=== PATIENT | female | born 1970 | race Caucasian/White ===

== ENCOUNTER 2022-06-10 09:41 | Outpatient (CLI) | payer BC, SELFPAY ==
[2022-06-10 13:13] LABS: Basophils Absolute Auto 0.03 K/uL (0.00-0.30); Basophils Percent Auto 0.6 % (0.0-3.0); Eosinophils Absolute Auto 0.13 K/uL (0.00-0.50); Eosinophils Percent Auto 2.5 % (0.0-7.0); Hematocrit 45.1 % (33.0-51.0); Hemoglobin* 14.8 gm/dL (12.0-16.0); Immature Granulocytes Abs Auto 0.03 K/uL (0.00-0.30); Lymphocytes Absolute Auto 1.54 K/uL (0.90-2.90); Mean Corpuscular HGB Conc 33 gm/dL (32-36); Mean Corpuscular Hemoglobin 30 pg (26-34); Mean Corpuscular Volume 92 fL (80-100); Monocytes Percent Auto 9.6 % (0.0-11.0); Neutrophils Absolute Auto 2.91 K/uL (1.7-7.0); Neutrophils Percent Auto 56.7 % (42.0-72.0); Platelet Count* 235 K/uL (140-440); RDW Coefficient of Variation % 12.7 % (11.5-15.5); White Blood Count* 5.13 K/uL (4.50-11.00)
[2022-06-10 13:41] LABS: Albumin* 4.4 g/dL (3.3-5.0); Chloride* 107 mmol/L (96-114); Potassium* 5.2 mmol/L (3.6-5.1); Sodium* 139 mmol/L (135-149)
[2022-06-10 13:44] LABS: Alanine Aminotransferase* 96 U/L (4-35); Alkaline Phosphatase* 71 U/L (40-150); Aspartate Amino Transferase* 55 U/L (12-35); Bilirubin Total* 0.6 mg/dL (0.1-1.5); Blood Urea Nitrogen* 18 mg/dL (7-30); Calcium* 9.1 mg/dL (8.4-10.6); Carbon Dioxide* 25 mmol/L (20-32); Creatinine* 0.8 mg/dL (0.5-1.5); Estimated Glomerular Filt Rate 90 ml/min; Glucose* 108 mg/dL (60-115); Lipase* 92 U/L (23-300); Total Protein* 7.3 g/dL (6.0-8.3)
[2022-06-10 14:17] LABS: Slide Review Reflex No
--- OUTSIDE RECORDS SUMMARY | 2022-06-16 03:23 | XMS_ITS | Encounter Summary ---
:1970 Author Organization [employer] Address [address] [address] Care Team Providers Name Role Phone Pcp, Pt Declines Primary Care Provider Reason for Visit Reason Comments Post Op Exam left ankle Encounter Details Date Type Department Care Team Description 11/09/2021 Office Visit BEULAH Camargo Osteoarthrit is of left ankle and foot (Primary Dx); Orthopaedics & Sports Devon Lucero MD Aftercare following surgery of the [facility]; Medicine [address] [place] [address] Arthritis of left ankle [address] [place] [phone] Social History Tobacco Use Types Packs/Day Years Used Date Smoking Tobacco: Never Smokeless Tobacco: Never Sex Assigned at Date Recorded Not on file documented as of this encounter Progress Notes Devon Camargo MD - 11/09/2021 11:45 AM CST FOLLOW-UP DATE OF SERVICE: 11/09/21 CC: Chief Complaint Patient presents with ??? Post Op Exam left ankle DOS: 09/24/2021 Surgery: Left distal tibia cheilectomy SUBJECTIVE: Saba Berrios is a 50 y.o. female who presents to clinic today for follow-up on her left ankle. She is now 6 weeks out from surgery. She did weight-bearing as tolerated in a Cam boot up until 2 weeks ago. She developed an abrasion from the boot rubbing on her anterior ankle. This has resolved with removal of the boot. She notes minimal discomfort with ankle range of motion. She is happy with the progress she is making this time. PHYSICAL EXAM: On physical examination the patient appears the stated age, is in no acute distress There is appropriate and non-labored breathing There were no vitals taken for this visit. - Incision healing well. - minimal swelling. No erythema. Abrasions healing well. - Motor: Fires EHL / FHL. Ankle dorsiflexion / planar flexion. Inversion / eversion - Sensation: intact in tibial, sural, saphenous, deep peroneal and superficial peroneal - Vascular: palpable dorsalis peds and posterior tibial artery IMAGING: No new imaging today IMPRESSION: Saba Berrios is a 50 y.o. female with the followin. left distal tibia cheilectomy for anterior ankle impingement, 6 weeks out from surgery PLAN: - We discussed the physical and imaging findings with the patient and how this relates the patient'ssymptomology. She is progressing well. She can get the boot at this time. - Weightbearing: Weight-bearing as tolerated - Physical Therapy: Continue work on ankle range of motion. - Follow-up: 6 weeks Devon Camargo MD Orthopedic Foot and Ankle Surgery ICAL DETECTION EXPERT documented in this encounter Plan of Treatment Not on filedocumented as of this encounter Visit Diagnoses Diagnosis Osteoarthritis of left ankle and foot - Primary [facility] Arthritis of left ankle Unspecified arthropathy, ankle and foot documented in this encounter Care Teams Spa Technician Relationship Specialty Start Date End Date Pcp, Sarkis Ash MD PCP - General 05/05/21 [place] [address] documented as of this encounter
--- OUTSIDE RECORDS SUMMARY | 2022-06-16 03:23 | XMS_ITS | Encounter Summary ---
:1970 Author Organization [facility] Address [address], [place] [address] Care Team Providers Name Role Phone PcpSarkis MD Primary Care Provider Encounter Details Date Type Department Care Team Description 11/07/2021 Notes/Orders [facility] Devon Camargo MD [place] [address] [place] [address] [address] [place] [address] [place], [place] [address] [phone] Social History Tobacco Use Types Packs/Day Years Used Date Smoking Tobacco: Never Smokeless Tobacco: Never Sex Assigned at Date Recorded Not on file documented as of this encounter Plan of Treatment Not on filedocumented as of this encounter Visit Diagnoses Not on filedocumented in this encounter Care Teams Manager Sign Relationship Specialty Start Date End Date Sarkis Romero MD PCP - General 05/05/21 [place], [place] [address] documented as of this encounter
--- OUTSIDE RECORDS SUMMARY | 2022-06-16 03:23 | XMS_ITS | Clinical Summary ---
:1970 Author Organization [facility] Address [address] [address] Care Team Providers Name Role Phone Pcp, Pt Declines MD Primary Care Provider Source Comments You are receiving this document as you are listed as the primary care provider,follow-up provider, or the patient has been referred to you for consultation.This is in compliance with the Medicare and Medicaid EHR Incentive Program,which states Providers who transition their patient to another setting of careor provider of care or refers their patient to another provider of care shouldprovide summarycare record for each transition of care or referral. [employer] Allergies Active Allergy Reactions Severity Noted Date Comments Chlorhexidine Rash 10/05/2021 From ankle padma oscar on 09/24 Wound Dressing Adhesive Rash 05/05/2021 Surg ical tape Medications Medication Sig Dispensed Refills Start Date End Date Status SUMAtriptan TAKE 1 TABLET BY 0 04/24/2021 Active (IMITREX) 100 MG MOUTH AFTER ONSET tablet OF MIGRAINE, MAY REPEAT AFTER 2 HOURS IF HEADACHE RETURNS. (MAX 2 TABLETS IN 24 HRS) TAKE NEEDED fluticasone Place 2 Sprays into 0 Active propionate (FLONASE) both nostrils 50 MCG/ACT nasal daily. solution cetirizine (ZYRTEC) Take 10 mg by mouth 0 Active 10 MG tablet daily. oxyCODONE-acetaminop Take 1-2 Tablets by 30 Tablet 0 Active hen (PERCOCET) 5-325 mouth every 4 hours MG tablet as needed for Pain. Maximum acetaminophen dose is 4000 mg in 24 hours. ondansetron Take 1 Tablet by 30 Tablet 0 09/24/2021 Active (ZOFRAN-ODT) 4 MG mouth every 8 hours disintegrating as needed for tablet Nausea. senna (SENNA Take 1 Tablet by 100 Tablet 0 09/24/2021 Active LAXATIVE) 8.6 MG mouth daily. tablet traMADol (ULTRAM) 50 Take 1 Tablet by 30 Tablet 0 11/09/2021 Active MG mouth every 6 hours tabletIndications: as needed. Arthritis of left ankle Resolved Problems Problem Noted Date Resolved Date Osteoarthritis of left ankle and foot 09/15/2021 Overview: Added automatically from request for padma oscar [id number] Immunizations Name Administration Dates Next Due Pfizer (Comirnaty) COVID-19, 12+ Yrs Purple Top 07/02/2021, 06/10/2021 Social History Tobacco Use Types Packs/Day Years Used Date Smoking Tobacco: Never Smokeless Tobacco: Never Sex Assigned at Date Recorded Not on file Last Filed Vital Signs Vital Sign Reading Time Taken Comments Blood Pressure 108/70 09/24/2021 2:30 PM HOIST MECHANIC Pulse 71 09/24/2021 2:30 PM HOIST MECHANIC Temperature 36.6 ??C (97.9 ??F) 09/24/2021 2:02 PM HOIST MECHANIC Respiratory Rate 16 09/24/2021 2:30 PM HOIST MECHANIC Oxygen Saturation 98% 09/24/2021 2:30 PM HOIST MECHANIC Inhaled Oxygen Concentration - - Weight 103 kg (227 lb) 09/24/2021 7:45 AM HOIST MECHANIC Height 170.2 cm (5' 7) 09/24/2021 7:45 AM HOIST MECHANIC Body Mass Index 35.55 09/24/2021 7:45 AM HOIST MECHANIC Plan of Treatment Health Maintenance Due Date Last Done Comments Cervical Cancer Screening Due 1970 Colon Cancer Screening Plan 1970 Due Hep C Screening (Preventive 1970 Services) HepB (1) 1970 Mammogram 1970 HIV Screening (Preventive 1987 Services) Adult Preventive Visit 1989 Cholesterol 2016 COVID-19 Vaccine (3 - Booster 12/02/2021 07/02/2021, for Pfizer series) 06/10/2021 Zoster/Shingles (1 of 2) 2021 Influenza (#1) 2022 11/28/2020, 08/23/2008, 08/28/2004 DTaP/Tdap/Td (4 - Tdap) 11/28/2030 11/28/2020, 02/07/2010, 03/09/2006 HepA Aged Out 07/31/2013, No longer eligib le based 02/27/2013, on patient's age to 01/23/2013 complete this to pic Hib Aged Out No longer eligib le based on patient's age to complete this to pic IPV (Polio) Aged Out No longer eligib le based on patient's age to complete this to pic MCV4 Aged Out No longer eligib le based on patient's age to complete this to pic Pneumococcal Aged Out No longer eligib le based on patient's age to complete this to pic Insurance Payer Benefit Plan / Subscriber ID Effective Dates Phone Addre ss Type Group [facility] [id number] 2021-Present [address] [address] [place] [id number] Saba Berrios Personal/Family Self [phone] (Home) [place] [id number] Advance Directives Latest Code Status on File Code Status Date Activated Date Inactivated Comments Full Code 09/24/2021 1:43 PM 09/24/2021 4:49 PM Care Teams English And Reading Instructor Relationship Specialty Start Date End Date Sarkis Romero MD PCP - General 05/05/21 [place] [address]
--- OUTSIDE RECORDS SUMMARY | 2022-06-16 03:23 | XMS_ITS | Encounter Summary ---
:1970 Author Organization [employer] Address [address] [address] Care Team Providers Name Role Phone PcpSarkis MD Primary Care Provider Reason for Visit Reason Comments Surgery Questions incision Encounter Details Date Type Department Care Team Description 10/22/2021 Telephone [facility] Devon Sargent y Questions Orthopaedics & Sports MD Jazmine (incision) Medicine [address] [facility] [address] [place], [place] [address] [phone] Social History Tobacco Use Types Packs/Day Years Used Date Smoking Tobacco: Never Smokeless Tobacco: Never Sex Assigned at Date Recorded Not on file documented as of this encounter Nursing Notes Devon Camargo MD - 10/22/2021 3:17 PM CST The patient called the nursing line about her incision. There is a scab that has not healed comparedto the other parts of the incision. Pictures in patients chart, from the patient. Patient states sheis doing well. No pain. Discussed that it does not look infected. She can come out of the boot now. Go into a shoe. Cover scab with gauze until it falls off over the next week or so. 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
--- OUTSIDE RECORDS SUMMARY | 2022-06-16 03:23 | XMS_ITS | Encounter Summary ---
:1970 Author Organization [facility] Address [address], [place] [address] Care Team Providers Name Role Phone PcpSarkis MD Primary Care Provider Encounter Details Date Type Department Care Team Description 03/03/2022 Notes/Orders [facility] Devon Camargo MD [place] [address] [place] [address] [address] [place] [address] [place], [place] [address] [phone] Social History Tobacco Use Types Packs/Day Years Used Date Smoking Tobacco: Never Smokeless Tobacco: Never Sex Assigned at Date Recorded Not on file documented as of this encounter Plan of Treatment Not on filedocumented as of this encounter Visit Diagnoses Not on filedocumented in this encounter Care Teams Crocodile Farmer Relationship Specialty Start Date End Date Sarkis Romero MD PCP - General 05/05/21 [place], [place] [address] documented as of this encounter
--- OUTSIDE RECORDS SUMMARY | 2022-06-16 03:23 | XMS_ITS | Encounter Summary ---
:1970 Author Organization [employer] Address [address] [address] Care Team Providers Name Role Phone Pcp, Pt Declines Primary Care Provider Reason for Referral (Routine) - New Request Specialty Diagnoses / Procedures Referred By Contact Refer red To Contact Diagnoses Aftercare following surgery of the musculoskeletal system Devon Camargo MD Procedures Triamcinolone Acet Inj Nos: (per 10 mg) [address] [facility] [place], [place] [address] Referral ID Status Reason Start Date Expiration Date Visits V isits Requested Authorized [id number] New Request 12/14/2021 03/15/2023 1 1 HOUSE STOCKER Reason for Visit Reason Comments Post Op Exam Left ankle Encounter Details Date Type Department Care Team Description 12/14/2021 Office Visit [facility] Orthopaedics & Sports Devon Lucero MD surgery of the Medicine [address] [facility] musculoskeletal system [address] [place], [place] (Primary Dx) [place] [phone] Social History Tobacco Use Types Packs/Day Years Used Date Smoking Tobacco: Never Smokeless Tobacco: Never Sex Assigned at Date Recorded Not on file documented as of this encounter Progress Notes Devon Camargo MD - 12/14/2021 3:00 PM CST FOLLOW-UP DATE OF SERVICE: 12/14/21 CC: Chief Complaint Patient presents with ??? Post Op Exam Left ankle DOS: 09/24/2021 Surgery: Left distal tibia cheilectomy SUBJECTIVE: Saba Berrios is a 51 y.o. female who presents to clinic today for follow-up on her left ankle. She is now 11 weeks out from her surgery. She reports that the anterior ankle pain has mostly resolved. She notes that she has new onset of lateral hindfoot pain, mostly centered over the sinus tarsi. And pain along the Achilles tendon. This pain mostly started after the surgery. It is not constant, but itis stabbing and can be debilitating. PHYSICAL EXAM: On physical examination the patient appears the stated age, is in no acute distress There is appropriate and non-labored breathing There were no vitals taken for this visit. - Incision healed well. - pain along the Achilles tendon. Nonpainful at the Achilles insertion. Significant pain to palpation sinus tarsi. - Motor: Fires EHL / FHL. Ankle dorsiflexion / planar flexion. Inversion / eversion - Sensation: intact in tibial, sural, saphenous, deep peroneal and superficial peroneal - Vascular: palpable dorsalis peds and posterior tibial artery IMAGING: No new imaging today Injection: The left lateral foot was cleaned with chlorhexidine. 1 cc of 40 mg of Kenalog and 2 cc of 1% lidocaine were injected into the sinus tarsi. Patient tolerated procedure well. There no immediate complications. IMPRESSION: Saba Berrios is a 51 y.o. female with the followin. left distal tibia cheilectomy for anterior ankle impingement, 11 weeks out from surgery PLAN: - We discussed the physical and imaging findings with the patient and how this relates the patient'ssymptomology. In regards to her anterior ankle pain, she is doing well. She still notes some stiffness, but is still working with physical therapy. 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 Today in clinic we did a lidocaine and Kenalog injection to see if this improves in her symptoms. The patient will cm mitral message in a few days if her symptoms have improved or not. I sent her physical therapist a message to work on Achilles tendinitis exercises. - Follow-up: The patient will contact me if there continues to be further problems. Devon Camargo MD Orthopedic Foot and Ankle Surgery HOUSE STOCKER documented in this encounter Plan of Treatment Not on filedocumented as of this encounter Visit Diagnoses Diagnosis Aftercare following [facility] - Primary Aftercare following surgery of the [facility], [facility] documented in this encounter Care Teams Toggler Relationship Specialty Start Date End Date Pcp, Sarkis Ash MD PCP - General 05/05/21 [place] [address] documented as of this encounter
--- OUTSIDE RECORDS SUMMARY | 2022-06-16 03:23 | XMS_ITS | Encounter Summary ---
:1970 Author Organization [facility] Address [address], [place] [address] Care Team Providers Name Role Phone Pcp, Pt Declines MD Primary Care Provider Reason for Visit Reason Comments Surgery, After Care How long to use crutches Incisional Questions Encounter Details Date Type Department Care Team Description 10/22/2021 Telephone [facility] Devon Sargent y, After Care Orthopaedics & Sports MD Jazmine (How long to use Medicine [address] [facility] [address] [place]); Incisional [address] [place], [place] Questions [place], [place] [address] [phone] Social History Tobacco Use Types Packs/Day Years Used Date Smoking Tobacco: Never Smokeless Tobacco: Never Sex Assigned at Date Recorded Not on file documented as of this encounter Nursing Notes Barb Parnell RN - 10/22/2021 3:17 PM CST Devon Camargo MD (3:16 PM) Just called the patient. Incision looks okay. Scab should fall off over next week or so. I told her she can come out of her CAM boot at this time. Gauze over the incision until fully healed. [facility] Barb Parnell RN - 10/22/2021 12:35 PM CST Action: Input needed Next Step: Route to ORTHO PN TRIAGE [[id number]] Specific Request(s): 1. Please advise if anything more needing to be done with scabbed/irritated area on the patient's incision. Pictures of area are available in the Media tab of the pt's chart. Spoke with the patient and she states there is an area on her incision that rubs on the CAM boot. She states it's not healed like the rest of the incision and there is some redness and a scab. Pt denies any drainage. She has been putting gauze and sometimes an abx ointment over the scab to help with padding it. She notes the scab gets soft during the day, but hardens when she is out of the boot at night. Pt advised to send in pictures of this area for Dr. Camargo to give further input. Also to continue to use a dressing to add extra padding to this area and keep the scab clean, covered and not use any ointment at this time. Also spoke with the patient that she is able to weight bear as tolerated so she can discontinue the use of her crutches as comfort allows. She may want to continue to use or have the crutches with whenshe will be walking longer distances, but she can go without the crutches in the house or for shorter distances as long as she tolerates it. Pt verbalized understanding to all advice given. [facility] Corinne Ribeiro - 10/22/2021 12:29 PM CST Has the patient recently had surgery or an injury? Yes. Date of Surgery: September 24, 2021 Type of Surgery: ANKLE, DISTAL TIBIA CHEILECTOMY (Left) How may we help you today? Pt is calling to ask how long she should continue to use her crutches. Please call the pt at [phone] to discuss Describe your symptoms/concerns: L ankle When did the issue start: Surgery Have you been seen for this recently?: 10/05/21 Dr Camargo [Him Manager/Appt Center: If yes, please include date and provider.] Is it okay to leave detailed message on your voicemail? Yes [Him Manager/Appt Center: If this call is after 3 p.m., communicate to patient: If we are not able to get back to you by the end of the day and your symptoms worsen please contact the Careline] [facility] documented in this encounter Plan of Treatment Not on filedocumented as of this encounter Visit Diagnoses Not on filedocumented in this encounter Care Teams Boom Pump Operator Relationship Specialty Start Date End Date Pcp, Sarkis Ash MD PCP - General 05/05/21 [place] [address] documented as of this encounter
--- OUTSIDE RECORDS SUMMARY | 2022-06-16 03:24 | XMS_ITS | Encounter Summary ---
:1970 Author Organization [facility] Address [address], [place] [address] Care Team Providers Name Role Phone Pcp, Pt Declines MD Primary Care Provider Reason for Referral (Routine) - Incomplete Specialty Diagnoses / Procedures Referred By Contact Refer red To Contact Procedures Chevy Coffman MD Anesthesia Guided Block [address] [place], [place] [address] Referral ID Status Reason Start Date Expiration Date Visits V isits Requested Authorized [id number] Incomplete 09/24/2021 12/24/2022 1 1 [employer]ONMENTAL CONSTRUCTION ENGINEER Procedure/Equipment (Routine) - Incomplete Specialty Diagnoses / Procedures Referred By Contact Refer red To Contact Procedures Devon Camargo MD MS C Arm Mini [address] [place], [place] [address] Referral ID Status Reason Start Date Expiration Date Visits V isits Requested Authorized [id number] Incomplete 09/21/2021 12/21/2022 1 1 [employer]ONMENTAL CONSTRUCTION ENGINEER Reason for Visit Auth/Cert Specialty Diagnoses / Procedures Referred By Contact Refer red To Contact Diagnoses Osteoarthritis of left ankle and foot Procedures ANKLE, DISTAL TIBIA CHEILECTOMY Referral ID Status Reason Start Date Expiration Date Visits Requ ested Visits Authorized [id number] 1 1 Encounter Details Date Type Department Care Team Description 09/24/2021 Hospital Encounter [facility] AMB SURGERY C TR Devon Camargo, [address] [facility] [place], [place] [address] [facility] [address] [place] [address] [phone] (Wo rk) Social History Tobacco Use Types Packs/Day Years Used Date Smoking Tobacco: Never Smokeless Tobacco: Never Sex Assigned at Date Recorded Not on file documented as of this encounter Last Filed Vital Signs Vital Sign Reading Time Taken Comments Blood Pressure 108/70 09/24/2021 2:30 PM ENVIRONMENTAL CONSTRUCTION ENGINEER Pulse 71 09/24/2021 2:30 PM ENVIRONMENTAL CONSTRUCTION ENGINEER Temperature 36.6 ??C (97.9 ??F) 09/24/2021 2:02 PM ENVIRONMENTAL CONSTRUCTION ENGINEER Respiratory Rate 16 09/24/2021 2:30 PM ENVIRONMENTAL CONSTRUCTION ENGINEER Oxygen Saturation 98% 09/24/2021 2:30 PM ENVIRONMENTAL CONSTRUCTION ENGINEER Inhaled Oxygen Concentration - - Weight 103 kg (227 lb) 09/24/2021 7:45 AM ENVIRONMENTAL CONSTRUCTION ENGINEER Height 170.2 cm (5' 7) 09/24/2021 7:45 AM ENVIRONMENTAL CONSTRUCTION ENGINEER Body Mass Index 35.55 09/24/2021 7:45 AM ENVIRONMENTAL CONSTRUCTION ENGINEER documented in this encounter Medications at Time of Discharge Medication Sig Dispensed Refills Start Date End Date cetirizine (ZYRTEC) 10 Take 10 mg by mouth 0 MG tablet daily. fluticasone propionate Place 2 Sprays into 0 (FLONASE) 50 MCG/ACT both nostrils daily. nasal solution ondansetron Take 1 Tablet by 30 Tablet 0 09/24/2021 (ZOFRAN-ODT) 4 MG mouth every 8 hours disintegrating tablet as needed for Nausea. oxyCODONE-acetaminophen Take 1-2 Tablets by 30 Tablet 0 (PERCOCET) 5-325 MG mouth every 4 hours tablet as needed for Pain. Maximum acetaminophen dose is 4000 mg in 24 hours. senna (SENNA LAXATIVE) Take 1 Tablet by 100 Tablet 0 021 8.6 MG tablet mouth daily. SUMAtriptan (IMITREX) TAKE 1 TABLET BY 0 04/24/20 21 100 MG tablet MOUTH AFTER ONSET OF MIGRAINE, MAY REPEAT AFTER 2 HOURS IF HEADACHE RETURNS. (MAX 2 TABLETS IN 24 HRS) TAKE NEEDED aspirin EC 81 MG Take 1 Tablet by 28 Tablet 0 09/24/2021 enteric coated tablet mouth two times a day for 14 days. traMADol (ULTRAM) 50 MG Take 1 Tablet by 30 Tablet 0 202011/09/2021 tabletIndications: mouth every 6 hours Arthritis of left ankle as needed. documented as of this encounter Progress Notes Rebecca Pierson RN - 09/21/2021 10:20 AM CST PPA call completed by calling [phone] and spoke to patient. Advised of arrival time 0730. Reviewed pre-procedure questions, detailed instructions with NPO guidelines and address given. Advised of visitor guidelines (1 visitor, 18+ yr in age for adults and 2 parents or legal guardians- peds)All questions answered, no other needs at this time. RONMENTAL CONSTRUCTION ENGINEER documented in this encounter Procedure Notes Devon Camargo MD - 09/24/2021 2:40 PM CST [facility] Brief Operative Progress Note Surgery Date: 09/28/2021 Primary Surgeon: Surgeon(s): Devon Camargo MD Assistants: GABRIELA Tidwell Pre-operative Diagnosis: Osteoarthritis Of Left Ankle And Foot Post-operative Diagnosis: Osteoarthritis Of Left Ankle And Foot Procedure: Procedure(s) (LRB): ANKLE, DISTAL TIBIA CHEILECTOMY (Left) Implants: see final dictation Findings: see final dictation Specimens: * No specimens in log * EBL: 10cc Tourniquet: 1 hour at 250mmHg Indications: The patient sustained an ankle fracture several years ago. Recently she started noting ankle pain and lack of ankle ROM. Has been debilitating and affecting her daily activities and quality of life. The patient has tried non operative interventions such as shoe modification, activity modification and steroid injections. None of which have helped with her symptoms. Risks and benefits to the 1st toe arthrodesis were discussed at length with the patient. Specific risks discussed included: infection, wound breakdown, numbness and damage to nerves, tendon, muscle, arteries or other blood vessels. The possibility of persistent pain and discomfort were also mentioned in conversation with the patient. Also discussed was the possibility of fracture, malunion, nonunion, and painful or broken hardware whichmay ultimately have to be removed. Medical complications related to the patient's general medical health including deep vein thrombosis, pulmonary embolus and other complications from anesthesia were discussed as well. The patient was told that we will take steps to minimize these risks by using sterile technique, antibiotics and DVT prophylaxis when appropriate and following the patient postoperatively in the clinic setting to monitor progress. The benefits of surgery were discussed with the patient including the potential to improve the current clinical condition through operative intervention. Alternatives to surgical intervention include continued conservative management which may yield less than optimal results for this particular patient. All questions were answered to the satisfaction of the patient. The patient elected to move forward with surgery. We discussed that the cheilectomy may improve her ROM, but it will not eliminate her pain. It will potentially delay her need for a arthrodesis or an arthroplasty. Procedure: The patient was met in preop holding area and the left foot was marked. The patient was brought back to the operating room, transferred to the operative table. Time-out was called and the patient's procedure and site for operative plan by those in room. Following anesthesia, patient was positioned. The left leg was prepped and draped in the usual sterile fashion. The procedure commenced by making 6 cm longitudinal incision over the anterior ankle. The superficial peroneal nerve was identified in the distal aspect of the incision. This was protected and drawn laterally. The extensor retinaculum was identified and opened longitudinally. The neurovascular bundlewas identified and retracted laterally. Sharp dissection was done down to the joint capsule which was opened. A large anterior osteophyte was noted on the tibia and was extended laterally and medially.This was removed with a curved osteotome. A rongeur was used to remove several loose bodies as well.Fluoroscopy was to confirm removal of the anterior osteophytes. The wound was copiously irrigated. Capsule was closed with 0 Vicryl. The extensor retinaculum was closed with 2-0 Vicryl. Subcutaneoustissue was closed with 3-0 Monocryl. Skin was closed with interrupted 3-0 nylon. A short-leg splint was placed. The patient was brought back to the postoperative holding area in stable condition. All counts werecorrect in the case. Postoperative Plan: - nonweightbearing for 2 weeks of left leg - aspirin 81 mg b.i.d. when nonweightbearing - at 2 weeks, x-rays of left ankle, out of splint, patient will go into a partial weight-bearing CAMboot. Devon Camargo M.D. Orthopedic Surgery RONMENTAL CONSTRUCTION ENGINEER Devon Camargo MD - 09/24/2021 1:37 PM CST [facility] Brief Operative Progress Note Surgery Date: 09/24/2021 Primary Surgeon: Surgeon(s): Devon Camargo MD Assistants: GABRIELA Tidwell Pre-operative Diagnosis: Osteoarthritis Of Left Ankle And Foot Post-operative Diagnosis: Osteoarthritis Of Left Ankle And Foot Procedure: Procedure(s) (LRB): ANKLE, DISTAL TIBIA CHEILECTOMY (Left) Implants: see final dictation Findings: see final dictation Specimens: * No specimens in log * Complications: none EBL: 10cc Postoperative Plan: - WB status: NWB - DVT Prophylaxis: Aspirin 81mg BID - Bracing/Splinting: SLS F/U: 2 weeks with left ankle XRs out of splint Devon Camargo M.D. Orthopedic Surgery RONMENT[employer] CONSTRUCTION ENGINEER documented in this encounter OR Notes H&P - Devon Camargo MD - 09/24/2021 11:43 AM CST Surgery Update for Preop History and Physical For 09/24/2021 scheduled procedure Reviewed the medical History and Physical/Medications. Attached H&P Note Lungs: clear Heart: RRR Update to H&P includes: Patient and/or family denies any health changes since the H&P This patient has been evaluated by me today and has been found to be a suitable candidate for surgery. Devon Camargo MD 09/24/2021 [employer]ONMENT[employer]STRUCTION ENGINEER documented in this encounter Plan of Treatment Not on filedocumented as of this encounter Procedures Procedure Name Priority Date/Time Associated Diagnosis Comme nts FL C ARM MINI Routine 09/24/2021 1:15 Results for this PM ENVIRONMENTAL CONSTRUCTION ENGINEER procedure are i n the results section. CHEILECTOMY 09/24/2021 11:36 Osteoarthritis of left AM ENVIRONMENTAL CONSTRUCTION ENGINEER ankle and foot US ANESTHESIA GUIDED STAT 09/24/2021 8:27 Resu lts for this BLOCK AM ENVIRONMENTAL CONSTRUCTION ENGINEER procedure are i n the results section. documented in this encounter Results FL C Arm Mini (09/24/2021 1:15 PM ENVIRONMENTAL CONSTRUCTION ENGINEER) Anatomical Region Laterality Modality Radio Fluoroscopy Specimen (Source) Anatomical Location Collection Method / Collectio n Time Received Time / Laterality Volume Narrative 09/24/2021 4:31 PM ENVIRONMENTAL CONSTRUCTION ENGINEER These images were obtained during a surg ical procedure. Devon Camargo MD RAD FL US Anesthesia Guided Block (09/24/2021 8:27 AM ENVIRONMENTAL CONSTRUCTION ENGINEER) Anatomical Region Laterality Modality Ultrasound Specimen (Source) Anatomical Location Collection Method / Collectio n Time Received Time / Laterality Volume Narrative 09/24/2021 8:27 AM ENVIRONMENTAL CONSTRUCTION ENGINEER If an Anesthesia block was performed please see the Anesthesia encounter for documentation. ??This procedure was performed and interpreted by the performing provider. ?? Chevy Coffman MD RAD US documented in this encounter Visit Diagnoses Diagnosis Osteoarthritis of left ankle and foot - Primary documented in this encounter Admitting Diagnoses Diagnosis Osteoarthritis of left ankle and foot documented in this encounter Administered Medications Inactive Administered Medications - up to 3 most recent administrations Medication Order MAR Action Action Date Dose Rate Site acetaminophen (TYLENOL) tablet Given 09/24/2021 7:55 AM ENVIRONMENTAL CONSTRUCTION ENGINEER 1,00 0 mg 1,000 mg 1,000 mg, Oral, ONCE, On Susanna 09/24/21 at 0800, For 1 dose, Give in pre-op., Pre-op dextrose 5 % infusion at 250 mL/hr, ONCE PRN, Other, for nausea if all other options have failed and patient is not diabetic., Starting on Susanna 09/24/21 at 0814, For 1 dose, PACU/Recovery diphenhydrAMINE (BENADRYL) injection 25 mg 25 mg, Intravenous, ONCE PRN, Other, for Nausea or Vom iting, Starting on Susanna 09/24/21 at 0814, Until Susanna 09/24/21 at 1629, For 1 dose, If multiple medications are ordered for nausea or vomiting - adm inister in the following priority based on medications ordered, effectiveness and availability: o ndansetron (ZOFRAN) > prochlorperazine (COMPAZINE) > diphenhydrAMINE (BENADR YL) > hydrOXYzine HCl (VISTARIL)> ePHEDrine > scopolamine (TRANSDERM-SCOP)., PACU/Recovery fentaNYL (SUBLIMAZE) injection 25-50 mcg 25-50 mcg, Intravenous, [id number], Other, 25 mcg for Mi ld to Moderate Pain (pain score 1-5), 50 mcg for Moderate to Severe Pain (pain s core 6 and above) in the immediate postop period when faster on-set, short acti ng agent is desired., Starting on Susanna 09/24/21 at 0814, Until Susanna 09/24/21 at 1629, Administer every 5 minutes as needed, to a maximum cumulati ve dose of 250 mcg. Call Anesthesiologist if additional dose needed For patients with a regional , spinal, or local anesthetic, may give for anticipated ambar n as the anesthetic wears off. Use fentanyl initially for a short acting agent for t reatment of acute post-operative pain. May be used in conjunction with a longer acting agent if o rdered for optimal pain control. Respiratory rate must be greater than 10 to a dminister medications., PACU/Recovery HYDROmorphone (DILAUDID) injection 0.2-0 .3 mg 0.2-0.3 mg, Intravenous, Q10MIN PRN, Pain, 0.2 mg IV f or Mild to Moderate pain (pain score 1-5), 0.3 mg IV for Moderate to Severe pain (pain score 6 and above) in the immediate postop period when longer acting agent is desired., Starting on Susanna 09/24/21 at 0814, Until Susanna 09/24/21 at 1629, Maximum cumulative dose is 2 mg in PACU, call Anesthesiologist if additional dosage neede d. For patients with a regional, spinal, or local anesthetic, may give for an ticipated pain as the anesthetic wears off., PACU/Recovery hydrOXYzine HCl (VISTARIL) injection 25 mg 25 mg, Intramuscular, ONCE PRN, Nausea/V omiting, Starting on Susanna 09/24/21 at 0814, Until Susanna 09/24/21 at 1629, For 1 dose, If multiple me dications are ordered for nausea or vomiting - administer in the following prior ity based on medications ordered, effectiveness and availability: ondansetron (ZOFRAN) > prochlorperazine (COMPAZINE) > diphenhydrAMINE (BENADRYL) > hydrOXYzine HCl (VISTARIL)> ePHEDrine > scopolamine (TRANSDERM-SCOP)., PACU/Recovery lactated ringers infusion Started 09/24/2021 1:28 PM ENVIRONMENTAL CONSTRUCTION ENGINEER 25 mL/hr, Intravenous, CONTINUOUS, Starting on Susanna 09/24/21 at 0800, Administer on all preop surgery patients, ages 12 and older, unless specified differently in the Protocol for Preop Initiation of IV fluids Order Set., Pre-op Restarted 09/24/2021 11:41 AM ENVIRONMENTAL CONSTRUCTION ENGINEER Started 09/24/2021 7:56 AM ENVIRONMENTAL CONSTRUCTION ENGINEER 25 mL/hr 25 mL/hr meperidine (DEMEROL) injection 12.5 mg 12.5 mg, Intravenous, [id number], Shiverin g, Starting on Susanna 09/24/21 at 0814, Until Susanna 09/24/21 at 1629, For 2 doses, Maxim um cumulative dose is 25 mg. Do not give to patients receiving MAO inhibitors (e.g. phenelzine (NA RDIL), tranylcypromine (PARNATE), selegiline (ELDEPRYL))., PACU/Recovery midazolam (VERSED) injection 1-2 mg Given 09/24/2021 8:56 AM ENVIRONMENTAL CONSTRUCTION ENGINEER 2 mg 1-2 mg, Intravenous, [id number], Sedation, Anxiety, Procedure, Starting on Susanna 09/24/21 at 0827, Until Susanna 09/24/21 at 1629, As directed by anesthesiologist MAX Dose 2mg, Pre-op naloxone (NARCAN) injection 0.08 mg 0.08 mg, Intravenous, PRN, Other, For respiratory rate less than 8/minute or patient difficult to arouse, Starting on Susanna 09/24/21 at 0814, Until Susanna 09/24/21 at 1629, May repeat every 3 minutes or until patient i s responsive to physical stimulation and is able to take deep jonathan aths. Maximum cumulative dose is 0.4 mg (1 mL). Continue to observe; if no response after administering total dose of 0.4 mg notify anesthesiologist STAT., PACU/Recovery naloxone (NARCAN) injection 0.4 mg 0.4 mg, Intravenous, ONCE PRN, Opioid Re versal, Starting on Susanna 09/24/21 at 0814, Until Susanna 09/24/21 at 1629, For 1 dose, For imminent respiratory arrest. Notify MD if naloxone is given., PACU/Recovery prochlorperazine (COMPAZINE) injection 5 mg 5 mg, Intravenous, Q15MIN PRN, Nausea, V omiting, Starting on Susanna 09/24/21 at 0814, Until Susanna 09/24/21 at 1629, For 2 doses, 2nd dose may be given in 15-30 minutes if first dose not effective. Maximum of 2 doses only. If multiple medications are ordered for nausea or vomiting - administer in the fol lowing priority based on medications ordered, effectiveness and availability: o ndansetron (ZOFRAN) > prochlorperazine (COMPAZINE) > diphenhydrAMINE (BENADR YL) > hydrOXYzine HCl (VISTARIL)> ePHEDrine > scopolamine (TRANSDERM-SCOP)., PACU/Recovery documented in this encounter Active and Recently Administered Medications Times are shown in ENVIRONMENTAL CONSTRUCTION ENGINEER. Scheduled Medication Order 09/22/2021 09/23/2021 09/24/2021 acetaminophen (TYLENOL) tablet 1,000 mg (COMPLETED) 0755 (Given - Provider: Sujey Marin RN) 1,000 mg, Oral, ONCE, On Susanna 09/24/21 at 0800, For 1 dose, Give in pre-op., Pre-op ceFAZolin (aka ANCEF) 2 g in dextrose 100 ml IVPB (COMPLETED) 1144 (Given - Provider: Pati Grullon APRN, ROHAN) 2 g, Intravenous, Administer over 30 Min utes, ONCE, On Susanna 09/24/21 at 0800, For 1 dose, Infuse within 60 minutes prior to incision; Re-dose 1 gram IV every 4 hours after initial dose until incision closed., Pre-op Continuous Medication Order 09/22/2021 09/23/2021 09/24/2021 lactated ringers infusion 0756 ( Started - Provider: Sujey aMrin RN)1140 (Stopped - Provider: Pati Grullon APRN, ROHAN - Comment: Switch to gravity)1141 (Restarted - Provider: Pati Grullon APRN, ROHAN)1144 (Canceled Entry - Provider: Pati Grullon APRN, ROHAN) 25 mL/hr, Intravenous, CONTINUOUS, Start ing on Susanna 09/24/21 at 0800, Administer on all preop surgery patients, ages 12 and older, unless specified differently in the Protocol for Preop Initiation of IV fluids Order Set., Pre-op 1328 (Started - Provider: Pati Grullon APRN, ROHAN) PRN Medication Order 09/22/2021 09/23/2021 09/24/2021 acetaminophen (TYLENOL) tablet 325-650 mg 325-650 mg, Oral, Q4H PRN, Other, Mild P ain (pain score 1-4), Starting on Susanna 09/24/21 at 1339, Until Susanna 09/24/21 at 1629, Give if able to take oral medications. Give for mild pain or if patient prefer s acetaminophen over other options for pain (all pain scores)., PACU/Recovery dextrose 5 % infusion at 250 mL/hr, ONCE PRN, Other, for nause a if all other options have failed and patient is not diabetic., Starting on Susanna 09/24/21 at 0814, For 1 dose, PACU/Recovery diphenhydrAMINE (BENADRYL) injection 25 mg 25 mg, Intravenous, ONCE PRN, Other, for Nausea or Vomiting, Starting on Susanna 09/24/21 at 0814, Until Susanna 09/24/21 at 1629, For 1 dose, If multiple medications are ordered for nausea or vomiting - admini ster in the following priority based on medications ordered, effectiveness and availability: ondansetron (ZOFRAN) > prochlorperazine (COMPAZINE) > diphenhydrAMINE (BENADRYL) > hydrOXYzine HCl ( VISTARIL)> ePHEDrine > scopolamine (TRANSDERM-SCOP)., PACU/Recov isac fentaNYL (SUBLIMAZE) injection 25-50 mcg 25-50 mcg, Intravenous, [id number], Other, 25 mcg for Mild to Moderate Pain (pain score 1-5), 50 mcg for Moderate to Severe Pain (pain score 6 and above) in the immediate postop period when faster on-set, short acting agent is desired., Startin g on Susanna 09/24/21 at 0814, Until Susanna 09/24/21 at 1629, Administer every 5 minutes as needed, to a maximum cumulative dose of 250 mcg. Call Anesthesiologist if add itional dose needed For patients with a regional, spinal, or local anesthetic, may give for anticipated pain as the anesthetic wears off. Use fentanyl initially for a short acting agent for treatment of acute post-operative pain. May be used in conjunction with a longer acting agent if ordered for optimal pain control. Respiratory rate must be greater than 10 to administer medications., PACU/Recovery HYDROmorphone (DILAUDID) injection 0.2-0.3 mg 0.2-0.3 mg, Intravenous, Q10MIN PRN, Ambar n, 0.2 mg IV for Mild to Moderate pain (pain score 1-5), 0.3 mg IV for Moderate to Severe pain (pain score 6 and above) in the immediate postop period when longer acting agent is desired., Starting on [facility] 09/24/21 at 0814, Until Susanna 09/24/21 at 1629, Maximum cumulative dose is 2 mg in PACU, call Anesthesiologist if additional dosage needed. For patients with a r egional, spinal, or local anesthetic, ma y give for anticipated pain as the anesthetic wears off., PACU/Recovery hydrOXYzine HCl (VISTARIL) injection 25 mg 25 mg, Intramuscular, ONCE PRN, Nausea/V omiting, Starting on Susanna 09/24/21 at 0814, Until Susanna 09/24/21 at 1629, For 1 dose, If multiple medications are ordered for nausea or vomiting - administer in the following priority based on medications ordered, effectiveness and availability: ondansetron (ZOFRAN) > prochlorperazine (COMPAZINE) > diphenhydrAMINE (BENADRYL) > hydrOXYzine HCl (VISTARIL)&gt ; ePHEDrine > scopolamine (TRANSDERM-SCOP)., PACU/Recovery meperidine (DEMEROL) injection 12.5 mg 12.5 mg, Intravenous, [id number], Shiverin g, Starting on Susanna 09/24/21 at 0814, Until [facility] 09/24/21 at 1629, For 2 doses, Maximum cumulative dose is 25 mg. Do not give to patients receiving MAO inhibitors ( e.g. phenelzine (NARDIL), tranylcypromin e (PARNATE), selegiline (ELDEPRYL))., PACU/Recovery midazolam (VERSED) injection 1-2 mg 0856 (Given - Provider: Emmy Holguin RN) 1-2 mg, Intravenous, [id number], Sedation, Anxiety, Procedure, Starting on Susanna 09/24/21 at 0827, Until Susanna 09/24/21 at 1629, As directed by anesthesiologist MAX Dose 2mg, Pre-op naloxone (NARCAN) injection 0.08 mg 0.08 mg, Intravenous, PRN, Other, For re spiratory rate less than 8/minute or patient difficult to arouse, Starting on Susanna 09/24/21 at 0814, Until Susanna 09/24/21 at 1629, May repeat every 3 minutes or unti l patient is responsive to physical stim ulation and is able to take deep breaths. Maximum cumulative dose is 0.4 mg (1 mL). Continue to observe; if no response after administering total dose of 0.4 mg notify anesthesiologist STAT., PACU/Recovery naloxone (NARCAN) injection 0.4 mg 0.4 mg, Intravenous, ONCE PRN, Opioid Re versal, Starting on Susanna 09/24/21 at 0814, Until Susanna 09/24/21 at 1629, For 1 dose, For imminent respiratory arrest. Notify MD if naloxone is given., PACU/Recovery oxyCODONE-acetaminophen (PERCOCET) 5-325 MG per tablet 1-2 Table t 1-2 Tablet, Oral, Q4H PRN, Other, Modera te Pain or Severe Pain (1 tablet for pain level 5-7, 2 tablets for pain level 8-10), Starting on Susanna 09/24/21 at 1339, Until Susanna 09/24/21 at 1629, PACU/Recovery prochlorperazine (COMPAZINE) injection 5 mg 5 mg, Intravenous, Q15MIN PRN, Nausea, V omiting, Starting on Susanna 09/24/21 at 0814, Until Susanna 09/24/21 at 1629, For 2 doses, 2nd dose may be given in 15-30 minutes if first dose not effective. Maximum of 2 doses only. If multiple medications a re ordered for nausea or vomiting - administer in the following priority based on medications ordered, effectiveness and availability: ondansetron (ZOFRAN) > p rochlorperazine (COMPAZINE) > diphenhydr AMINE (BENADRYL) > hydrOXYzine HCl (VISTARIL)> ePHEDrine > scopolamine (TRANSDERM-SCOP)., PACU/Recovery documented in this encounter Care Teams Hospice Executive Director Relationship Specialty Start Date End Date Pcp, Sarkis Ash MD PCP - General 05/05/21 [place] [address] documented as of this encounter
--- OUTSIDE RECORDS SUMMARY | 2022-06-16 03:24 | XMS_ITS | Encounter Summary ---
:1970 Author Organization [employer] Address [address] [address] Care Team Providers Name Role Phone Pcp, Pt Declines Primary Care Provider Reason for Visit Procedure/Equipment (Routine) - Incomplete Specialty Diagnoses / Procedures Referred By Contact Refer red To Contact Diagnoses Chronic pain of left ankle Devon Camargo MD Procedures XR Ankle Lt 3 Views [address] [facility] [place], [place] [address] Referral ID Status Reason Start Date Expiration Date Visits V isits Requested Authorized [id number] Incomplete 10/05/2021 01/04/2023 1 1 Encounter Details Date Type Department Care Team Description 10/05/2021 Ancillary Park Devon Rollins Chronic pain of Procedure Samuel Lucero MD left ankle Radiology [address] [facility] [address] [place], [place] [address] [address] [place], [place] [phone] (Work) [phone] Social History Tobacco Use Types Packs/Day Years Used Date Smoking Tobacco: Never Smokeless Tobacco: Never Sex Assigned at Date Recorded Not on file documented as of this encounter Plan of Treatment Not on filedocumented as of this encounter Procedures Procedure Name Priority Date/Time Associated Diagnosis Comme nts XR ANKLE LT 3 VIEWS Routine 10/05/2021 11:50 AM Chronic pain o f left Results for this ANALYTICS ASSOCIATE ankle procedure are i n the results section. documented in this encounter Results XR Ankle Lt 3 Views (10/05/2021 11:50 AM ANALYTICS ASSOCIATE) Anatomical Region Laterality Modality Lower Extremity, Ankle, Foot & Ankle Dig ital Radiography Specimen (Source) Anatomical Collection Method Collection Time Re ceived Time Location / / Volume Laterality 10/05/2021 11:43 AM ANALYTICS ASSOCIATE Impressions 10/05/2021 11:53 AM ANALYTICS ASSOCIATE COMPARISON: ??CT 09/03/2021 FINDINGS: ??3 views obtained of the left ankle. Intact screws in the distal fibula. Chronic appearing osseous fragmentation at the medial malleolus from remote injury. Moderate degenerative changes at t he tibiotalar joint and posterior subtal ar joint. Mild degenerative changes at the talonavicular joint. Prominent posterior and plantar calcaneal enthesophytes. Procedure Note Jeff Lagos MD - 10/05/2021Formattin g of this note might be different from the original. IMPRESSION COMPARISON: CT 09/03/2021 FINDINGS: 3 views obtained of the left a nkle. Intact screws in the distal fibula. Chronic appearing osseous fragmentation at the medial malleolus from remote injury. Moderate degenerative changes at the tibiotalar joint and posterior subtalar joint. Mild degen erative changes at the talonavicular joint. Prominent posterior and plantar calcaneal enthesophytes. Devon Camargo MD RAD GD documented in this encounter Visit Diagnoses Diagnosis Chronic pain of left ankle documented in this encounter Care Teams Tool Planner Relationship Specialty Start Date End Date Pcp, Sarkis Ash MD PCP - General 05/05/21 [place] [address] documented as of this encounter
--- OUTSIDE RECORDS SUMMARY | 2022-06-16 03:24 | XMS_ITS | Encounter Summary ---
:1970 Author [facility] Address [address] [address] Care Team Providers Name Role Phone Pcp, Pt Declines Primary Care Provider Reason for Visit (Routine) - Incomplete Specialty Diagnoses / Procedures Referred By Contact Refer red To Contact Procedures Chevy Coffman MD US Anesthesia Guided Block [address] [place], [place] [address] Referral ID Status Reason Start Date Expiration Date Visits V isits Requested Authorized [id number] Incomplete 09/24/2021 12/24/2022 1 1 Encounter Details Date Type Department Care Team Description 09/24/2021 Ancillary Procedure Radiology PACS [address] [place] [address] Social History Tobacco Use Types Packs/Day Years Used Date Smoking Tobacco: Never Smokeless Tobacco: Never Sex Assigned at Date Recorded Not on file documented as of this encounter Plan of Treatment Not on filedocumented as of this encounter Procedures Procedure Name Priority Date/Time Associated Comments Diagnosis US ANESTHESIA GUIDED STAT 09/24/2021 8:27 AM R esults for this BLOCK MAJOR APPLIANCE ASSEMBLY SUPERVISOR procedure are i n the results section. documented in this encounter Results US Anesthesia Guided Block (09/24/2021 8:27 AM MAJOR APPLIANCE ASSEMBLY SUPERVISOR) Anatomical Region Laterality Modality Ultrasound Specimen (Source) Anatomical Location Collection Method / Collectio n Time Received Time / Laterality Volume Narrative 09/24/2021 8:27 AM MAJOR APPLIANCE ASSEMBLY SUPERVISOR If an Anesthesia block was performed please see the Anesthesia encounter for documentation. ??This procedure was performed and interpreted by the performing provider. ?? Chevy Coffman MD RAD US documented in this encounter Visit Diagnoses Not on filedocumented in this encounter Care Teams Rigging Loft Repairer Relationship Specialty Start Date End Date Pcp, Sarkis Ash MD PCP - General 05/05/21 [place], [place] [address] documented as of this encounter
--- OUTSIDE RECORDS SUMMARY | 2022-06-16 03:24 | XMS_ITS | Encounter Summary ---
:1970 Author Organization [facility] Address [address], [place] [address] Care Team Providers Name Role Phone Pcp, Pt Declines Primary Care Provider Reason for Visit Procedure/Equipment (Routine) - Incomplete Specialty Diagnoses / Procedures Referred By Contact Refer red To Contact Procedures Devon Camargo MD FL C Arm Mini [address] [facility] [place], [place] [address] Referral ID Status Reason Start Date Expiration Date Visits V isits Requested Authorized [id number] Incomplete 09/21/2021 12/21/2022 1 1 Encounter Details Date Type Department Care Team Description 09/24/2021 Ancillary Procedure Devon Salmeron [address]Torres Lucero MD Radiology [address] [place] [address] [place] [phone] Social History Tobacco Use Types Packs/Day Years Used Date Smoking Tobacco: Never Smokeless Tobacco: Never Sex Assigned at Date Recorded Not on file documented as of this encounter Plan of Treatment Not on filedocumented as of this encounter Procedures Procedure Name Priority Date/Time Associated Diagnosis Comme nts FL C ARM MINI Routine 09/24/2021 1:15 PM Results for this SEMICONDUCTOR TECHNICIAN procedure are i n the results section . documented in this encounter Results FL C Arm Mini (09/24/2021 1:15 PM SEMICONDUCTOR TECHNICIAN) Anatomical Region Laterality Modality Radio Fluoroscopy Specimen (Source) Anatomical Location Collection Method / Collectio n Time Received Time / Laterality Volume Narrative 09/24/2021 4:31 PM SEMICONDUCTOR TECHNICIAN These images were obtained during a surg ical procedure. Devon Camargo MD [facility] documented in this encounter Visit Diagnoses Not on filedocumented in this encounter Care Teams Glass Grinder Relationship Specialty Start Date End Date Pcp, Sarkis Ash MD PCP - General 05/05/21 [place] [address] documented as of this encounter
--- OUTSIDE RECORDS SUMMARY | 2022-06-16 03:24 | XMS_ITS | Encounter Summary ---
:1970 Author Organization [facility] Address [address], [place] [address] Care Team Providers Name Role Phone Pcp, Pt Declines Primary Care Provider Reason for Visit Auth/Cert Specialty Diagnoses / Procedures Referred By Contact Refer red To Contact Diagnoses Osteoarthritis of left ankle and foot Procedures ANKLE, DISTAL TIBIA CHEILECTOMY Referral ID Status Reason Start Date Expiration Date Visits Requ ested Visits Authorized [id number] 1 1 Encounter Details Date Type Department Care Team Description 09/24/2021 Surgery [facility] SURGERY C TR Devon Camargo, ANKLE, DISTAL TIBIA [address] [facility] CHEILECTOMY [place], [place] [address] [facility] [address] [place], [place] [phone] (Wo rk) Social History Tobacco Use Types Packs/Day Years Used Date Smoking Tobacco: Never Smokeless Tobacco: Never Sex Assigned at Date Recorded Not on file documented as of this encounter Last Filed Vital Signs Vital Sign Reading Time Taken Comments Blood Pressure 104/64 09/24/2021 9:11 AM KILN FIRER Pulse 67 09/24/2021 9:11 AM KILN FIRER Temperature 36.9 ??C (98.4 ??F) 09/24/2021 7:42 AM KILN FIRER Respiratory Rate 14 09/24/2021 9:11 AM KILN FIRER Oxygen Saturation 98% 09/24/2021 9:11 AM KILN FIRER Inhaled Oxygen Concentration - - Weight 103 kg (227 lb) 09/24/2021 7:45 AM KILN FIRER Height 170.2 cm (5' 7) 09/24/2021 7:45 AM KILN FIRER Body Mass Index 35.55 09/24/2021 7:45 AM KILN FIRER documented in this encounter Medications at Time [...] AM CST PPA call completed by calling [phone] and spoke to patient. Advised of arrival time 0730. Reviewed pre-procedure questions, detailed instructions with NPO guidelines and address given. Advised of visitor guidelines (1 visitor, 18+ yr in age for adults and 2 parents or legal guardians- peds)All questions answered, no other needs at this time. FIRER documented in this encounter Procedure Notes Devon [...] positioned. The left leg was prepped and aped in the usual sterile fashion. The procedure [...] weight-bearing CAMboot. Devon Camargo M.D. Orthopedic Surgery FIRER Devon Camargo MD - 09/24/2021 1:37 PM [...] of splint Devon Camargo M.D. Orthopedic Surgery FIRER documented in this encounter OR Notes H&P [...] candidate for surgery. Devon Camargo MD 09/24/2021 FIRER documented in this encounter Plan of Treatment Not on filedocumented as of this encounter Procedures Procedure Name Priority Date/Time Associated Diagnosis Comme nts FL C ARM MINI Routine 09/24/2021 1:15 Results for this PM KILN FIRER procedure are i n the results section. CHEILECTOMY 09/24/2021 11:36 Osteoarthritis of left AM KILN FIRER ankle and foot US ANESTHESIA GUIDED STAT 09/24/2021 8:27 Resu lts for this BLOCK AM KILN FIRER procedure are i n the results section. documented in this encounter Results FL C Arm Mini (09/24/2021 1:15 PM KILN FIRER) Anatomical Region Laterality Modality Radio Fluoroscopy Specimen (Source) Anatomical Location Collection Method / Collectio n Time Received Time / Laterality Volume Narrative 09/24/2021 4:31 PM KILN FIRER These images were obtained during a surg ical procedure. Devon Camargo MD RAD FL US Anesthesia Guided Block (09/24/2021 8:27 AM KILN FIRER) Anatomical Region Laterality Modality Ultrasound Specimen (Source) Anatomical Location Collection Method / Collectio n Time Received Time / Laterality Volume Narrative 09/24/2021 8:27 AM KILN FIRER If an Anesthesia block was performed please see the Anesthesia encounter for documentation. ??This procedure was performed and interpreted by the performing provider. ?? Chevy Coffman MD RAD US documented in this encounter Visit Diagnoses Diagnosis Osteoarthritis of left ankle and foot - Primary Osteoarthritis of left ankle and foot documented in this encounter Admitting Diagnoses Diagnosis Osteoarthritis of left ankle and foot documented in this encounter Administered Medications Inactive Administered Medications - up to 3 most recent administrations Medication Order MAR Action Action Date Dose Rate Site acetaminophen (TYLENOL) tablet Given 09/24/2021 7:55 AM KILN FIRER 1,00 0 mg 1,000 mg 1,000 mg, [...] (SUBLIMAZE) injection 25-50 mcg 25-50 mcg, Intravenous, [id number], Other, 25 mcg for Mi ld to [...] lactated ringers infusion Started 09/24/2021 1:28 PM KILN FIRER 25 mL/hr, Intravenous, CONTINUOUS, Starting on Susanna 09/24/21 at 0800, Administer on all preop surgery patients, ages 12 and older, unless specified differently in the Protocol for Preop Initiation of IV fluids Order Set., Pre-op Restarted 09/24/2021 11:41 AM KILN FIRER Started 09/24/2021 7:56 AM KILN FIRER 25 mL/hr 25 mL/hr meperidine (DEMEROL) injection 12.5 mg 12.5 mg, Intravenous, [id number], Shiverin g, Starting on Susanna 09/24/21 at 0814, Until Susanna 09/24/21 at 1629, For 2 doses, Maxim um cumulative dose is 25 mg. Do not give to patients receiving MAO inhibitors (e.g. phenelzine (NA RDIL), tranylcypromine (PARNATE), selegiline (ELDEPRYL))., PACU/Recovery midazolam (VERSED) injection 1-2 mg Given 09/24/2021 8:56 AM KILN FIRER 2 mg 1-2 mg, Intravenous, [id number], Sedation, Anxiety, Procedure, Starting on Susanna 09/24/21 [...] Recently Administered Medications Times are shown in KILN FIRER. Scheduled Medication Order 09/22/2021 09/23/2021 09/24/2021 acetaminophen (TYLENOL) tablet 1,000 mg (COMPLETED) 0755 (Given - Provider: Sujey Marin, RN) 1,000 mg, Oral, ONCE, On Susanna [...] infusion 0756 ( Started - Provider: Sujey Marin RN)1140 (Stopped - Provider: Pati Grullon APRN, [...] (SUBLIMAZE) injection 25-50 mcg 25-50 mcg, Intravenous, [id number], Other, 25 mcg for Mild to Moderate [...] longer acting agent is desired., Starting on [facility] 09/24/21 at 0814, Until Susanna 09/24/21 at [...] (DEMEROL) injection 12.5 mg 12.5 mg, Intravenous, [id number], Shiverin g, Starting on Susanna 09/24/21 at 0814, Until Susanna 09/24/21 at 1629, For 2 doses, Maximum cumulative dose is 25 mg. Do not give to patients receiving MAO inhibitors ( e.g. phenelzine (NARDIL), tranylcypromin e (PARNATE), selegiline (ELDEPRYL))., PACU/Recovery midazolam (VERSED) injection 1-2 mg 0856 (Given - Provider: Emmy Holguin RN) 1-2 mg, Intravenous, [id number], Sedation, Anxiety, Procedure, Starting on Susanna 09/24/21 [...] PACU/Recovery documented in this encounter Care Teams Telephone Cleaner Relationship Specialty Start Date End Date Pcp, Sarkis Ash MD PCP - General 05/05/21 [place] [address] documented as of this encounter
--- OUTSIDE RECORDS SUMMARY | 2022-06-16 03:24 | XMS_ITS | Encounter Summary ---
:1970 Author Organization [employer] Address [address], [place] [address] Care Team Providers Name Role Phone Pcp, Pt Declines Primary Care Provider Reason for Visit Reason Comments APPOINTMENT REQUEST WORK IN Encounter Details Date Type Department Care Team Description 07/17/2021 Telephone [facility] [address] Steve Workman , APPOINTMENT REQUEST [facility] (WORK IN) [address] [place] [phone] (Wo rk) Social History Tobacco Use Types Packs/Day Years Used Date Smoking Tobacco: Never Smokeless Tobacco: Never Sex Assigned at Date Recorded Not on file documented as of this encounter Nursing Notes Steven Gibson RN - 07/17/2021 11:14 AM CDT LVM for the patient. Call and confirm appointment with Dr. Workman. Xavier Fournier - 07/17/2021 10:04 AM CDT Has the patient recently had surgery or an injury? No How may we help you today? Pt would like a call back from care team. Describe your symptoms/concerns: Pt was seen on 07/16/2021 for an ankle injection. Pt states that there is some pain which is from the bone spurrs. She was suppose to be seen 2 weeks from the last appt but had a hold up with the order being put in. She just had the injection done yesterday with a 2 weekreturn of 07/30/2021. If need be she is okay to travel to [facility]. Please call to advise. When did the issue start: NA Have you been seen for this recently?: NA [Parts Counterman/Appt Center: If yes, please include date and provider.] Is it okay to leave detailed message on your voicemail? YES [Parts Counterman/Appt Center: If this call is after 3 p.m., communicate to patient: If we are not able to get back to you by the end of the day and your symptoms worsen please contact the Careline] documented in this encounter Plan of Treatment Not on filedocumented as of this encounter Visit Diagnoses Not on filedocumented in this encounter Care Teams Intensive Care Nurse Relationship Specialty Start Date End Date Pcp, Sarkis Ash MD PCP - General 05/05/21 [place] [address] documented as of this encounter
--- OUTSIDE RECORDS SUMMARY | 2022-06-16 03:24 | XMS_ITS | Encounter Summary ---
:1970 Author Organization [employer] [facility] Address [address] [place] [address] Care Team Providers Name Role Phone Pcp, Pt Declines Primary Care Provider Encounter Details Date Type Department Care Team Description 09/01/2021 Telephone [facility] Devon Rosado MD [address] [facility] [address] [facility] [place], [place] [address] [place], [place] [phone] (Wo rk) Social History Tobacco Use Types Packs/Day Years Used Date Smoking Tobacco: Never Smokeless Tobacco: Never Sex Assigned at Date Recorded Not on file documented as of this encounter Nursing Notes Radha Travis - 09/02/2021 7:19 AM CDT Left Ankle CT without Contrast Code: 00270 ICD-10 Code: M19.072 Devon Camargo M.D. [facility] Group #: [id number] Per Availity, NO PRIOR AUTHORIZATION REQUIRED Transaction ID: [id number] Patient notified. will call with results. Radha Travis - 09/01/2021 3:58 PM CDT Hi there, Looking for PA request Saba Berrios CT left ankle no contrast [employer] [place] Asher Camargo MD Thank you, Radha documented in this encounter Plan of Treatment Not on filedocumented as of this encounter Visit Diagnoses Not on filedocumented in this encounter Care Teams Roll Changer Relationship Specialty Start Date End Date Pcp, Sarkis Ash MD PCP - General 05/05/21 [place] [address] documented as of this encounter
--- OUTSIDE RECORDS SUMMARY | 2022-06-16 03:24 | XMS_ITS | Encounter Summary ---
:1970 Author Organization [employer] Address [address] [address] Care Team Providers Name Role Phone Pcp, Pt Declines MD Primary Care Provider Reason for Referral Procedure/Equipment (Routine) - Incomplete Specialty Diagnoses / Procedures Referred By Contact Refer red To Contact Diagnoses Post-traumatic osteoarthritis of left ankle Steve Workman MD Procedures FL Injection Ankle Lt [address] [place], [place] [address] Referral ID Status Reason Start Date Expiration Date Visits V isits Requested Authorized [id number] Incomplete 07/03/2021 10/02/2022 1 1 Encounter Details Date Type Department Care Team Description 07/03/2021 Notes/Orders Specialty Center Steve Workman Post-t raumatic [address] BEULAH Galaviz MD osteoarthritis of left Orthopedics [address] [facility] ankle (Primary Dx) [address] [place] [phone] Social History Tobacco Use Types Packs/Day Years Used Date Smoking Tobacco: Never Smokeless Tobacco: Never Sex Assigned at Date Recorded Not on file documented as of this encounter Plan of Treatment Not on filedocumented as of this encounter Results FL Injection Ankle Lt (07/16/2021 11:12 AM CDT) Anatomical Region Laterality Modality Lower Extremity, Ankle Radiographic Imag ing Specimen (Source) Anatomical Collection Method Collection Time Re ceived Time Location / / Volume Laterality 07/16/2021 10:46 AM CDT Impressions 07/16/2021 11:36 AM CDT Fluoroscopically guided therapeutic left ankle ??injection with Isovue M-200, Kenalog, and ropivacaine: The risk and procedure were explained to the patient and consent obtained. ??Pause for cause was initiated. ??The ??skin overlying the area to be injected was prepped and draped in standard sterile fash ion. ??1% lidocaine was infiltrated into the skin overlying each joint to be injected. ??. ??Under fluoroscopic guidance, a 25-gauge needle was advanced into the joint. ??0.1 mL of Isovue M-200 was inje cted to confirm position. ??Subsequently 20 mg ??triamcinolone 40 mg/mL and 0.5 mL 0.5% ropivacaine was injected into the joint. ??There were no complications immediately. The patient reported preprocedural pain of 6 out of 10, and postprocedural pain of 0 out of 10. Procedure Note Reuben Vásquez MD - 07/16/2021Forma tting of this note might be different from the original. IMPRESSION Fluoroscopically guided therapeutic left ankle injection with Isovue M-200, Kenalog, and ropivacaine: The risk and procedure were explained to the patient and consent obtained. Pause for cause was initiated. The skin overlying the area to be injected was prepped and draped in standard sterile fashion. 1% lidocaine was infiltrated into the skin overlying each joint to be injected. . Under fluoroscopic guidance, a 25-gauge needle was advanced into the joint. 0.1 mL of Isovue M-200 was injected to confirm position. Subsequently 20 mg triamcinolone 40 mg/m L and 0.5 mL 0.5% ropivacaine was injected into the joint. There were no complications immediately. The patient reported preprocedural pain of 6 out of 10, and postprocedural pain of 0 out of 10. Steve Workman MD [facility] documented in this encounter Visit Diagnoses Diagnosis Post-traumatic osteoarthritis of left an kle - Primary Post-traumatic osteoarthritis of left an kle documented in this encounter Care Teams Reinsurance Claims Analyst Relationship Specialty Start Date End Date PcpSarkis MD PCP - General 05/05/21 [place] [address] documented as of this encounter
--- OUTSIDE RECORDS SUMMARY | 2022-06-16 03:24 | XMS_ITS | Encounter Summary ---
:1970 Author Organization [facility] Address [address], [place] [address] Care Team Providers Name Role Phone Unavailable Primary Care Provider Unavailable Reason for Visit Procedure/Equipment (Routine) - Incomplete Specialty Diagnoses / Procedures Referred By Contact Refer red To Contact Procedures Provider, Foreign Images Foreign Image(S) XR Ankle Lt [address] [place] [address] Referral ID Status Reason Start Date Expiration Date Visits V isits Requested Authorized [id number] Incomplete 05/05/2021 08/04/2022 1 1 Encounter Details Date Type Department Care Team Description 12/08/2020 Ancillary Procedure [facility] Radiology PACS Provider, Foreign [address] [place] [address] [address] [place] [address] Social History Tobacco Use Types Packs/Day Years Used Date Smoking Tobacco: Never Assessed Sex Assigned at Date Recorded Not on file documented as of this encounter Plan of Treatment Not on filedocumented as of this encounter Procedures Procedure Name Priority Date/Time Associated Diagnosis Comme nts FOREIGN IMAGE(S) XR Routine 12/08/2020 4:35 PM Re sults for this ANKLE LT MEAT AND SEAFOOD MANAGER procedure are i n the results section. documented in this encounter Results Foreign Image(S) XR Ankle Lt (12/08/2020 4:35 PM MEAT AND SEAFOOD MANAGER) Specimen (Source) Anatomical Location Collection Method / Collectio n Time Received Time / Laterality Volume Narrative POCT - 05/05/2021 11:36 AM CDT These outside images have been uploaded into PACS. If the results were provided, they will be located in the ladan garnett's chart under the Media or Imaging tab. Foreign Images Provider RAD NON-REPORTABLES Performing Organization Address City/State/ZIP Code Phon e Number POCT documented in this encounter Visit Diagnoses Not on filedocumented in this encounter
--- OUTSIDE RECORDS SUMMARY | 2022-06-16 03:24 | XMS_ITS | Encounter Summary ---
:1970 Author Organization [facility] Address [address], [place] [address] Care Team Providers Name Role Phone Unavailable Primary Care Provider Unavailable Reason for Visit Procedure/Equipment (Routine) - Incomplete Specialty Diagnoses / Procedures Referred By Contact Refer red To Contact Procedures Provider, Foreign Images Foreign Image(S) XR Ankle Lt [address] [place] [address] Referral ID Status Reason Start Date Expiration Date Visits V isits Requested Authorized [id number] Incomplete 05/05/2021 08/04/2022 1 1 Encounter Details Date Type Department Care Team Description 04/09/2021 Ancillary Procedure [facility] PACS Provider, Foreign [address] [place] [address] [address] [place] [address] Social History Tobacco Use Types Packs/Day Years Used Date Smoking Tobacco: Never Assessed Sex Assigned at Date Recorded Not on file documented as of this encounter Plan of Treatment Not on filedocumented as of this encounter Procedures Procedure Name Priority Date/Time Associated Diagnosis Comme nts FOREIGN IMAGE(S) XR Routine 04/09/2021 9:35 AM Re sults for this ANKLE LT CDT procedure are i n the results section. documented in this encounter Results Foreign Image(S) XR Ankle Lt (04/09/2021 9:35 AM CDT) Specimen (Source) Anatomical Location Collection Method / Collectio n Time Received Time / Laterality Volume Narrative POCT - 05/05/2021 11:35 AM CDT These outside images have been uploaded into PACS. If the results were provided, they will be located in the ladan garnett's chart under the Media or Imaging tab. Foreign Images Provider RAD NON-REPORTABLES Performing Organization Address City/State/ZIP Code Phon e Number POCT documented in this encounter Visit Diagnoses Not on filedocumented in this encounter
--- OUTSIDE RECORDS SUMMARY | 2022-06-16 03:24 | XMS_ITS | Encounter Summary ---
:1970 Author Organization [facility] Address [address], [place] [address] Care Team Providers Name Role Phone Pcp, Pt Declines Primary Care Provider Reason for Visit Reason Comments Medication Questions Encounter Details Date Type Department Care Team Description 05/05/2021 Telephone [facility] BOBBI Steve Ochoa, Medication Questions [address] [facility] [place] [place] [address] [address] [facility] [phone] [place] [address] (Wo rk) Social History Tobacco Use Types Packs/Day Years Used Date Smoking Tobacco: Never Smokeless Tobacco: Never Sex Assigned at Date Recorded Not on file documented as of this encounter Nursing Notes Chloe Reece RN - 05/05/2021 2:44 PM CDT RN returned call to pharmacy and spoke with Gypsy- they are wanting to clarify if the Tramadol is for chronic or acute pain as if it is for acute pain they can only provide 28 tabs due to the 7 day rule. RN is unable to see notes from provider with regard to what patient was being seen for. RN stated that we will presume that it's for acute pain as Dr. Workman is a trauma surgeon. If we need to refill medication we can re- evaluate at that time. Jacki Murguia - 05/05/2021 1:48 PM CDT Has the patient recently had surgery or an injury? No How may we help you today? Pharmacy has a question regarding the Tramadol that was ordered today for1 Tab every 6 hours. Describe your symptoms/concerns: Is this for acute or chronic pain? When did the issue start: Have you been seen for this recently?: [Measurement Analyst/Appt Center: If yes, please include date and provider.] Is it okay to leave detailed message on your voicemail? Yes [Measurement Analyst/Appt Center: If this call is after 3 p.m., communicate to patient: If we are not able to get back to you by the end of the day and your symptoms worsen please contact the Careline] documented in this encounter Plan of Treatment Not on filedocumented as of this encounter Visit Diagnoses Not on filedocumented in this encounter Care Teams Vp Purchasing Relationship Specialty Start Date End Date PcpSarkis MD PCP - General 05/05/21 [place] [address] documented as of this encounter
--- OUTSIDE RECORDS SUMMARY | 2022-06-16 03:24 | XMS_ITS | Encounter Summary ---
:1970 Author Organization [facility] Address [address] [address] Care Team Providers Name Role Phone Pcp, Pt Declines Primary Care Provider Reason for Referral Consult/Transfer Care (Routine) - New Request Specialty Diagnoses / Procedures Referred By Contact Refer red To Contact Diagnoses [place] [address] [place] [address] [phone] Referral ID Status Reason Start Date Expiration Date Visits V isits Requested Authorized [id number] New Request 07/30/2021 10/29/2022 1 1 Scheduling Instructions Your provider has recommended an appoint ment with [facility]. You may call [phone] to schedule your appoi ntment. We suggest you call your health insurance company about your coverage an d benefits for this appointment. Reason for Visit Reason Comments ANKLE PAIN L ankle pn, H/O ORIF Encounter Details Date Type Department Care Team Description 07/30/2021 Office Visit Specialty Center [address] Steve Workman rthritis of left [facility] MD Guillaume ankle (Primary Dx) [address] [place] [phone] (Wo rk) Social History Tobacco Use Types Packs/Day Years Used Date Smoking Tobacco: Never Smokeless Tobacco: Never Sex Assigned at Date Recorded Not on file documented as of this encounter Patient Instructions Patient InstructionsRy Flower - 07/30/2021 9:00 AM CDT Schedule an appointment with Dr. Asher Camargo. documented in this encounter Progress Notes Steve Workman MD - 07/30/2021 9:00 AM CDT Injury: Chronic left ankle pain with arthritis. HPI: She reports initial relief with the injection, but no long-term benefit. She is also experiencing only minimal relief with bracing. Physical Exam: Patient is awake, alert and oriented X3 in no apparent distress. Appears well nourished and well-developed. Breathing is nonlabored. Focused exam of the left ankle demonstrates no changes in ankle appearance or function compared to previous exam. Radiographic Studies: None. Labs: None Assessment: - Status post ORIF left ankle fracture 26 years ago - Chronic left ankle pain - Left ankle arthritis Plan: - Referral to Dr. Asher Camargo for foot and ankle fusion surgery consultation. - If she elects to not move forward with fusion surgery at this time, we can discuss getting the anterior tibial bone spur surgically removed. X-Rays Next Visit: none Patient verbalized understanding of above mentioned plan and is amenable. All questions were answered in detail. Patient verbalized understanding that they should return sooner or call if there are anyquestions or concerns. Scribe Disclosure: Scribed for Steve Workman MD by Alexandra Summers, medical claims processor. I, Steve Workman MD, have personally reviewed and agree with the information entered by the scribe. Steve Workman MD documented in this encounter Plan of Treatment Scheduled Referrals Name Type Priority Associated Diagnoses Order S chedule Orthopaedic Consult Referral Routine Arthritis of left ank le Ordered: 07/30/2021 Adult/Peds documented as of this encounter Visit Diagnoses Diagnosis Arthritis of left ankle - Primary Unspecified arthropathy, ankle and foot documented in this encounter Care Teams Human Resources Project Manager Relationship Specialty Start Date End Date Pcp, Pt Declines, MD PCP - General 05/05/21 [place], [place] [address] documented as of this encounter
--- OUTSIDE RECORDS SUMMARY | 2022-06-16 03:24 | XMS_ITS | Encounter Summary ---
:1970 Author Organization [employer] Address [address] [place] [address] Care Team Providers Name Role Phone Pcp, Pt Declines Primary Care Provider Reason for Visit Reason Comments Follow Up Ct Results Encounter Details Date Type Department Care Team Description 09/08/2021 Telephone [facility] Devon Camargo Fol [facility] Up [facility] Results Surgery Center [address] [facility] [address] [facility] [address] [facility] [place], [place] [address] [address] [place] [address] [phone] (Wo rk) Social History Tobacco Use Types Packs/Day Years Used Date Smoking Tobacco: Never Smokeless Tobacco: Never Sex Assigned at Date Recorded Not on file documented as of this encounter Nursing Notes Dian Salvador - 09/15/2021 12:03 PM CST Patient LVM asking to schedule surgery - please enter optime orders. She would like surgery @ [facility]. Thank you, CD UCT SALES REPRESENTATIVE Devon Camargo MD - 09/08/2021 4:31 PM CDT Discussed that there is a large anterior osteophyte on the tibia. Removing this could help since most of her pain is when she dorsiflexes her ankle. Discussed that this will likely not cure her pain and will not be a alf fix, but will potentially give her a few more months or years before movingon to an ankle fusion. documented in this encounter Plan of Treatment Not on filedocumented as of this encounter Visit Diagnoses Not on filedocumented in this encounter Care Teams Manager Wireless Relationship Specialty Start Date End Date PcpSarkis MD PCP - General 05/05/21 [place] [address] documented as of this encounter
--- OUTSIDE RECORDS SUMMARY | 2022-06-16 03:24 | XMS_ITS | Encounter Summary ---
:1970 Author Organization [facility] Address [address] [place] [address] Care Team Providers Name Role Phone Pcp, Pt Declines Primary Care Provider Reason for Visit Reason Comments Refill Orders Needed Encounter Details Date Type Department Care Team Description 07/01/2021 Telephone [facility] [address] Steve Workman , Refill; Orders Needed [facility] [address] [place] [phone] (Wo rk) Social History Tobacco Use Types Packs/Day Years Used Date Smoking Tobacco: Never Smokeless Tobacco: Never Sex Assigned at Date Recorded Not on file documented as of this encounter Nursing Notes Barb Parnell RN - 07/03/2021 10:16 AM CDT Spoke with the pt and made her aware that an order was placed for the injection and she can call [phone] to schedule this appointment. Also her tramadol was refilled. Pt verbalized understanding and no other questions at this time. Ry Flower - 07/03/2021 10:10 AM CDT Order placed. Please provide patient with radiology number for scheduling. ELLT Barb Parnell RN - 07/03/2021 10:02 AM CDT Please advise on which joint to be injection so an order can be entered. Heather Chris RN - 07/01/2021 2:47 PM CDT Action: New order Next Step: Route to ORTHO PN TRIAGE [70003] Specific Request(s): 1. Patient requesting order for ankle injection recommended at [facility] 2. Patient requesting refill of tramadol. Last OV: 06/18/21 - s/p ORIF left ankle fracture 26 years ago - Chronic left ankle pain - Left ankle arthritis Last filled quantity and date: 05/05/21 #30 Pharmacy preference verified, medication pended. Requested Prescriptions Pending Prescriptions Disp Refills ??? traMADol (ULTRAM) 50 MG tablet 30 Tablet 0 Sig: Take 1 Tablet by mouth every 6 hours as needed. No future appointments. Belkis Scott - 07/01/2021 2:21 PM CDT Has the patient recently had surgery or an injury? No Ortho Refill Questionnaire Has orthopaedics previously prescribed this medication? Yes Patient was notified that they will receive a follow-up call from care team and that the refill request will be reviewed within 24-48 hours. Requested Prescriptions No prescriptions requested or ordered in this encounter Last filled detail: 05/05/21 Patient states currently taking:traMADol (ULTRAM) 50 MG tablet 1 tabs q.6.h as needed Is the patient taking anything else for pain including over the counter medications? None Pharmacy (if applicable): [facility] - [facility] - [id number] [id number] [address] [id number] Comments: Belkis Scott - 07/01/2021 2:19 PM CDT Has the patient recently had surgery or an injury? No What referral/order is being requested: injection Why is the referral/order needed: left ankle Is it okay to leave detailed message on your voicemail? yes [Traffic Rate Computer/Appt Center: If this call is after 3 p.m., communicate to patient: If we are not able to get back to you by the end of the day and your symptoms worsen please contact the Careline] [Traffic Rate Computer: Please inform patient that a referral does not guarantee insurance coverage. Patients should call the member services number on the back of their insurance ID card to understand whatcoverage for the services they are requesting.] documented in this encounter Plan of Treatment Not on filedocumented as of this encounter Visit Diagnoses Diagnosis Arthritis of left ankle Unspecified arthropathy, ankle and foot documented in this encounter Care Teams Lead Assembler Relationship Specialty Start Date End Date PcpSarkis MD PCP - General 05/05/21 [place] [address] documented as of this encounter
--- OUTSIDE RECORDS SUMMARY | 2022-06-16 03:24 | XMS_ITS | Encounter Summary ---
:1970 Author Organization [employer] Address [address], [place] [address] Care Team Providers Name Role Phone Pcp, Pt Declines Primary Care Provider Reason for Visit Reason Comments Ankle Problem H/O ORIF L ankle fx Encounter Details Date Type Department Care Team Description 05/05/2021 Office Visit [facility] tSeve Workman Arthri tis of left ankle (Primary Dx); JOCELYN Galaviz MD Chronic pain of left ankle [address] [phone] [place], [place] [address] (Wo rk) Social History Tobacco Use Types Packs/Day Years Used Date Smoking Tobacco: Never Smokeless Tobacco: Never Sex Assigned at Date Recorded Not on file documented as of this encounter Progress Notes Steve Wokrman MD - 05/05/2021 11:00 AM CDT Chief Complaint: Left ankle pain History of Present Illness: Saba Berrios is a 50 y.o. old female who presents c/o near constant left ankle pain. The pain is located anteriorly in her left ankle and is exacerbated with ambulation. She denies any numbness or tingling to the left lower extremity. She has a history of ORIF of left ankle fracture 26 years ago. She has tried injections to the left ankle in the past, which only provided relief for a few days. She has tried PT in the past with minimal relief. She wears an ankle brace most days, which provides some relief. She takes OTC Tylenol and Ibuprofen as needed for pain. She has previously consulted with an orthopedic surgeon at [facility], and he told her that she would probably need surgery on her left ankle to help her; she says he suggested fusing her ankle bones. Previous Medical History: does not have a problem list on file. Previous Surgical History: Past Surgical History: Procedure Laterality Date ??? ANKLE SURGERY Left 1994 ORIF of left ankle fracture Medications: has a current medication list which includes the following prescription(s): cetirizine,fluticasone propionate, sumatriptan, and tramadol. Allergies: Allergies Allergen Reactions ??? Wound Dressing Adhesive Rash Surgical tape Family History: family history is not on file. Social History: reports that she has never smoked. She has never used smokeless tobacco. Review of Systems: 12 Point Review was performed. The form is reviewed by me, signed and on the chart. Physical Examination: Patient is awake, alert, and oriented and is in no apparent distress. Appears well nourished and well developed. Breathing is nonlabored. The patient is afebrile with vital signs within normal limits. Focused exam of the left ankle demonstrates no signs of infection. Range of jordi on from 0 to 20 degrees. There is an old incision on the medial side that is a little bit irritated and inflamed, probably abrasions from brace or shoe. Well healed lateral incisions. There is some swelling anterolaterally. Neurovascularly intact. Radiographic Studies: X-ray of the left ankle was previously obtained on 04/09/2021 and was independently viewed and interpreted by me today. Discussed results with patient. Imaging reveals ankle arthritis. Assessment: - s/p ORIF left ankle fracture 26 years ago - Chronic left ankle pain - Left ankle arthritis Plan: - Patient has already failed injections and physical therapy. Gave patient another ankle brace to try to see if this helps more than her current ankle brace. - Discussed surgical options including bone fusion, which she wants to prolong for as long as possible. She is not a candidate for replacement, due to her young age and activity level. - Prescribed tramadol 50 mg for her to take every 6 hours as needed. Will see if this helps more than OTC Tylenol and Ibuprofen. - Follow up in 4-6 weeks for reevaluation. The patient verbalized understanding of the above mentioned treatment plan and is amenable. All questions were answered in detail. Patient verbalized understanding that they should return sooner or call if there are any questions or concerns. Scribed for Steve Workman MD by radha Pickett, on 05/05/2021. I, Steve Workman MD, have personally reviewed and agreed with the information entered by the scribe. Steve Workman M.D. documented in this encounter Plan of Treatment Not on filedocumented as of this encounter Visit Diagnoses Diagnosis Arthritis of left ankle - Primary Unspecified arthropathy, ankle and foot Chronic pain of left ankle documented in this encounter Care Teams Lab Support Tech Relationship Specialty Start Date End Date Pcp, Sarkis Ash MD PCP - General 05/05/21 [place] [address] documented as of this encounter
--- OUTSIDE RECORDS SUMMARY | 2022-06-16 03:24 | XMS_ITS | Encounter Summary ---
:1970 Author Organization [facility] [facility] Address [address], [place] [address] Care Team Providers Name Role Phone Pcp, Pt Declines Primary Care Provider Reason for Visit Reason Comments ANKLE PAIN L ankle pain H/O ORIF Encounter Details Date Type Department Care Team Description 06/18/2021 Office Visit [facility]ty Center 393 Steve Workman rthritis of left [facility] MD Guillaume ankle (Primary Dx) [address] [phone] (Wo rk) Social History Tobacco Use Types Packs/Day Years Used Date Smoking Tobacco: Never Smokeless Tobacco: Never Sex Assigned at Date Recorded Not on file documented as of this encounter Progress Notes Steve Workman MD - 06/18/2021 9:45 AM CDT Chief Complaint: Left ankle pain HPI: The patient reports the brace she was given does not really seem to be helping her. She describes most of her pain is located in the front. She reports the Tramadol helps some. Physical Exam: Patient is awake, alert and oriented X3 in no apparent distress. Appears well nourished and well-developed. Breathing is nonlabored. Focused exam of the left ankle demonstrates moderate swelling. Foot is warm and well perfused. Radiographic Studies: None Labs: None Assessment: - s/p ORIF left ankle fracture 26 years ago - Chronic left ankle pain - Left ankle arthritis Plan: - Patient will be scheduled for an injection through our Interventional Radiology department. She will keep track of how she feels immediately afterwards for the first day. - Continue use of the ankle brace as tolerated. - Prescription of tramadol 50 mg every 6 hours as needed was refilled. - Follow-up in two weeks after she receives the injection. X-Rays Next Visit: None Patient verbalized understanding of above mentioned plan and is amenable. All questions were answered in detail. Patient verbalized understanding that they should return sooner or call if there are anyquestions or concerns. This note created using speech-recognition software and may contain unintended word substitutions. documented in this encounter Plan of Treatment Not on filedocumented as of this encounter Visit Diagnoses Diagnosis Arthritis of left ankle - Primary Unspecified arthropathy, ankle and foot documented in this encounter Care Teams Media Clerk Relationship Specialty Start Date End Date PcpSarkis MD PCP - General 05/05/21 [place] [address] documented as of this encounter
--- OUTSIDE RECORDS SUMMARY | 2022-06-16 03:24 | XMS_ITS | Encounter Summary ---
:1970 Author Organization [facility] Address [address] [address] Care Team Providers Name Role Phone Pcp, Pt Declines MD Primary Care Provider Reason for Visit Auth/Cert Specialty Diagnoses / Procedures Referred By Contact Refer red To Contact Diagnoses Osteoarthritis of left ankle and foot Procedures ANKLE, DISTAL TIBIA CHEILECTOMY Referral ID Status Reason Start Date Expiration Date Visits Requ ested Visits Authorized [id number] 1 1 Encounter Details Date Type Department Care Team Description 09/24/2021 Anesthesia Event [facility] SURGERY C TR Chevy Coffman MD [address] [place], [place] [id number] [facility] Richmond Kelley APRN, CRNA [address] [place] [address] [place] [address] Anesthesia Record Procedure Summary Procedure Name Responsible Anesthesia Start Anesthesia Stop Anesthesiologist Time Time ANKLE, DISTAL TIBIA Chevy Coffman MD 09/24/21 1144 09/24 1403 CHEILECTOMY (Left: Foot) Events Date Time Event Comment 09/24/2021 0929 1144 An Start 1144 Quick Note Anesthesia start time denotes sedation started by AUTO PAINTER currently o n case; patient continuously monitored to O.R . By AUTO PAINTER 1147 An Start Data 1150 MD/DO Present 1214 An Tourn Inflated Left leg 250 t bay 1228 MD/DO Present 1313 MD/DO Present 1317 An Tourn Deflated 1357 an stop data 1357 MD/DO Present 1403 Care Handoff Note I discussed wi th the receiving nurse and we: 1) Identified the p atient, salazar family member(s) or patient surrogat e 2) Identified the responsible practitioner 3) Reviewed the pertinent medical history 4) Discu ssed the surgical/procedure course 5) Reviewed intr a-op anesthesia management and issues during an esthesia 6) Set expectations for the post-procedu re period 7) Allowed opportunity for questions an d acknowledgement of understanding of report Electr onically signed by Pati Grullon APRN, AUTO PAINTER 1403 An Stop Care transferred . Name Total propofol 10 mg/mL IV (DIPRIVAN) 940.91 mg ondansetron injection (ZOFRAN) 4 mg dexamethasone 4 mg/mL injection (DECADRON) 4 mg ceFAZolin (aka ANCEF) 2 g in dextrose 100 ml IVPB 2 g ropivacaine (NAROPIN) 0.5% (5 mg/mL) injection 15 mL ropivacaine (NAROPIN) 0.5% (5 mg/mL) injection 15 mL lidocaine 1% PF injection aka (XYLOCAINE) 2 mL lidocaine 1% PF injection aka (XYLOCAINE) 2 mL dexamethasone PF 10 mg/mL injection (DECADRON) 2 mg dexamethasone PF 10 mg/mL injection (DECADRON) 2 mg dexmedetomidine (PRECEDEX) 20 mcg in NaCl 5 mL (4 mcg/ mL) injection SYRINGE 8 mcg midazolam injection 2 mg/2 mL (VERSED) 1 mg fentaNYL injection (SUBLIMAZE) 100 mcg lactated ringers infusion 1,000 mL Agents Name O2 Identified Agent Name Blood No blood administrations on file. Lines, Drains, and Airways Type Details Placement Removal Peripheral IV Placement Date: 09/24/21 075 by 09/24/21 1432 b y 09/24/21; Placement Sujey Marin RN Byrnes, Jenna R, RN Time: 755; Pre-existing: No; Inserted by?: RN; Orientation: Right; Site Prep: ChloraPrep; Insertion attempts: 1; Patient Tolerance: Tolerated well; Removal Date: 09/24/21; Removal Time: 1431; Removal Reason: Patient discharged; Catheter Tip: Intact Incision/Surgical Site 09/24/21; 1145; Ankle; 09/24/21 1145 by 1 11/24/20 1432 by Anterior, Left; Rebeka Santiago RN InocencioRebeka ortiz RN 09/24/21; 1432 documented in this encounter Social History Tobacco Use Types Packs/Day Years Used Date Smoking Tobacco: Never Smokeless Tobacco: Never Sex Assigned at Date Recorded Not on file documented as of this encounter Miscellaneous Notes Anesthesia Postprocedure Evaluation - Chevy Coffman MD - 09/24/2021 3:39 PM CST [facility] Anesthesia Post-op Note Patient: Saba Berrios Post-Op Diagnosis: Osteoarthritis of left ankle and foot Procedure Performed: Procedure(s): Left - ANKLE, DISTAL TIBIA CHEILECTOMY - Wound Class: 1 CLEAN Anesthesia Type: MAC, Regional Post-op vital signs: Vitals Value Taken Time BP 108/70 09/24/21 1430 Temp 36.6 ??C (97.9 ??F) 09/24/21 1402 Pulse 71 09/24/21 1430 Resp 16 09/24/21 1430 SpO2 98 % 09/24/21 1430 Pain Score: Presence Of Pain: denies Preferred Pain Scale: number (Numeric Rating Pain Scale) Pain Rating (0-10): Rest: 0 Pain Rating (0-10): Activity: 0 Post-op assessment: No anesthesia complication. Patient location: Phase 2 Airway Status: Patent Cardiovascular function: Satisfactory Hydration status: Satisfactory PONV: None Level of Consciousness: Awake Fully Participates Postop Assessment: Patient tolerated procedure well. Electronically signed by: Chevy Coffman MD 09/24/2021 3:39 PM TH AND WELLNESS ADVISOR Anesthesia Procedure Notes - Chevy Coffman MD - 09/24/2021 9:12 AM HEALTH AND WELLNESS ADVISOR Associated Order(s): Peripheral Block Peripheral Block Performed by: Chevy Coffman MD Authorized by: Chevy Coffman MD Patient Location: Preop Start Time: 09/24/2021 9:04 AM End Time: 09/24/2021 9:07 AM Performed by: Anesthesiologist Body area of block: Lower Extremity Lower Extremity Block: adductor canal Laterality: Left Correct Position: Yes Correct Patient: Yes Correct Site: Yes Correct Procedure: Yes Correct Laterality: Yes Site Marked: Yes Checklist: risks and benefits discussed, patient agrees to proceed, IV checked, anesthesia consent, monitors/equipment checked, surgical consent and at surgeon's request Prep: Chloraprep, Hat, Mask and Sterile gloves Monitoring: Blood pressure, cardiac cath lab manager and continuous pulse oximetry Patient Position: Supine Procedures: ultrasound guided Needle Type: Insulated Needle Length: 4 in Needle Gauge: 21 G Pain on Injection: No Blood aspirated?: No Bolus given as slow fractionated injection?: Yes Paresthesias?: No Bleeding at site?: No Ultrasound guided?: Yes Ultrasound image saved/archived?: Yes Ultrasound Interpretation: anatomic plane and expected location of nerve appear normal, local anesthetic visualized surrounding nerve, appropriate spread of the medication was noted in real time, no ultrasound evidence of intravascular and/or intraneural injection, needle tip was noted to be adjacent to the nerve/plexus identified and needle and nerve visualized Catheter placed?: No Complication: None Procedure Comments: Local Anesthetics used (unless noted differently in Local Anesthetics section): 15 mL Ropivacaine 0.5% + 5 ml normal saline + 2mg dexamethasone. Performed and signed by Chevy Coffman MD. If block is for post-op pain the surgeon has given a verbal order transferring care of this patient to me for the performance of a regional analgesia block for post-op pain control. It is requested of me because I am uniquely trained and qualified to perform this block and the surgeon is neither trained nor qualified to perform this procedure. Medications Administered lidocaine PF 1 % - Subcutaneous 2 mL - 09/24/2021 9:04:00 AM Ropivacaine administered: Ropivacaine 0.5% (5 mg/mL) 5 MG/ML - Regional Nerve Block 15 mL - 09/24/2021 9:07:00 AM Dexamethasone administered: Dexamethasone PF 10 MG/ML - Regional Nerve Block 2 mg - 09/24/2021 9:07:00 AM TH AND WELLNESS ADVISOR Anesthesia Procedure Notes - Chevy Coffman MD - 09/24/2021 9:10 AM HEALTH AND WELLNESS ADVISOR Associated Order(s): Peripheral Block Peripheral Block Performed by: Chevy Coffman MD Authorized by: Chevy Coffman MD Patient Location: Preop Start Time: 09/24/2021 8:58 AM End Time: 09/24/2021 9:03 AM Performed by: Anesthesiologist Body area of block: Lower Extremity Lower Extremity Block: sciatic Laterality: Left Correct Position: Yes Correct Patient: Yes Correct Site: Yes Correct Procedure: Yes Correct Laterality: Yes Site Marked: Yes Checklist: risks and benefits discussed, patient agrees to proceed, IV checked, anesthesia consent, monitors/equipment checked, surgical consent and at surgeon's request Prep: Chloraprep, Hat, Mask and Sterile gloves Monitoring: Blood pressure, cardiac cath lab manager and continuous pulse oximetry Patient Position: Supine Procedures: ultrasound guided Needle Type: Insulated Needle Length: 4 in Needle Gauge: 21 G Pain on Injection: No Blood aspirated?: No Bolus given as slow fractionated injection?: Yes Paresthesias?: No Bleeding at site?: No Ultrasound guided?: Yes Ultrasound image saved/archived?: Yes Ultrasound Interpretation: anatomic plane and expected location of nerve appear normal, local anesthetic visualized surrounding nerve, appropriate spread of the medication was noted in real time, no ultrasound evidence of intravascular and/or intraneural injection, needle tip was noted to be adjacent to the nerve/plexus identified and needle and nerve visualized Catheter placed?: No Complication: None Procedure Comments: Local Anesthetics used (unless noted differently in Local Anesthetics section): 15 mL Ropivacaine 0.5% + 5 ml normal saline + 2mg dexamethasone. Popliteal approach to sciatic nerve block. Performed and signed by Chevy Coffman MD. If block is for post-op pain the surgeon has given a verbal order transferring care of this patient to me for the performance of a regional analgesia block for post-op pain control. It is requested of me because I am uniquely trained and qualified to perform this block and the surgeon is neither trained nor qualified to perform this procedure. Medications Administered lidocaine PF 1 % - Subcutaneous 2 mL - 09/24/2021 8:58:00 AM Ropivacaine administered: Ropivacaine 0.5% (5 mg/mL) 5 MG/ML - Regional Nerve Block 15 mL - 09/24/2021 9:03:00 AM Dexamethasone administered: Dexamethasone PF 10 MG/ML - Regional Nerve Block 2 mg - 09/24/2021 9:03:00 AM TH AND WELLNESS ADVISOR Anesthesia Preprocedure Evaluation - Chevy Coffman MD - 09/24/2021 8:36 AM CST [facility] Anesthesia Pre-op Evaluation Procedure: ANKLE, DISTAL TIBIA CHEILECTOMY, Left HPI: 50 y.o. old female with Osteoarthritis of left ankle and foot Last Fluid Intake Time: 2199 Last Fluid Intake Date: 09/23/21 Last Food Intake Date: 09/23/21 Last Food Intake Time: 2129 Allergies Allergen Reactions ??? Wound Dressing Adhesive Rash Surgical tape No past medical history on file. Patient Active Problem List Diagnosis ??? Osteoarthritis of left ankle and foot Past Surgical History: Procedure Laterality Date ??? ANKLE SURGERY Left 1994 ORIF of left ankle fracture Outpatient Medications as of 09/24/2021 Medication Sig ??? cetirizine (ZYRTEC) 10 MG tablet Take 10 mg by mouth daily. ??? fluticasone propionate (FLONASE) 50 MCG/ACT nasal solution Place 2 Sprays into both nostrils daily. ??? SUMAtriptan (IMITREX) 100 MG tablet TAKE 1 TABLET BY MOUTH AFTER ONSET OF MIGRAINE, MAY REPEAT AFTER 2 HOURS IF HEADACHE RETURNS. (MAX 2 TABLETS IN 24 HRS) TAKE NEEDED ??? traMADol (ULTRAM) 50 MG tablet Take 1 Tablet by mouth every 6 hours as needed. Facility-Administered Medications as of 09/24/2021 Medication Dose Route Frequency ??? [COMPLETED] acetaminophen (TYLENOL) tablet 1,000 mg 1,000 mg Oral Once ??? ceFAZolin (aka ANCEF) 2 g in dextrose 100 ml IVPB 2 g Intravenous Once ??? dextrose 5 % infusion Intravenous ONCE PRN ??? diphenhydrAMINE (BENADRYL) injection 25 mg 25 mg Intravenous ONCE PRN ??? fentaNYL (SUBLIMAZE) injection 25-50 mcg 25-50 mcg Intravenous Q5MIN PRN ??? HYDROmorphone (DILAUDID) injection 0.2-0.3 mg 0.2-0.3 mg Intravenous Q10MIN PRN ??? hydrOXYzine HCl (VISTARIL) injection 25 mg 25 mg Intramuscular ONCE PRN ??? lactated ringers infusion 25 mL/hr Intravenous Continuous ??? meperidine (DEMEROL) injection 12.5 mg 12.5 mg Intravenous Q5MIN PRN ??? midazolam (VERSED) injection 1-2 mg 1-2 mg Intravenous Q5MIN PRN ??? naloxone (NARCAN) injection 0.08 mg 0.08 mg Intravenous PRN ??? naloxone (NARCAN) injection 0.4 mg 0.4 mg Intravenous ONCE PRN ??? prochlorperazine (COMPAZINE) injection 5 mg 5 mg Intravenous Q15MIN PRN Labs: No results found for: SODIUM, K, CHLORIDE, CO2, BUN, CREATININE, GLUCOSE No results found for: WBC, HGB, HCT, PLTS No results found for: INR Blood Bank: No results found for: ABO, ABSCR EKG: No results found for this or any previous visit. Physical Exam: BP 129/49 Pulse 74 Temp 36.9 ??C (98.4 ??F) (Temporal Artery) Resp 16 Ht 5' 7 Wt 103 kg (227 lb) SpO2 98% BMI 35.55 kg/m?? Assessment/Plan: Review of Systems NPO Status: Acceptable. Patient does not have GERD. Patient is not a current smoker. The patient denies alcohol use. Patient denies any recent URI. History of PONV: No. History of motion sickness: No. Patient denies any personal or family history of anesthesia complications (PONV). Exam Mental Status: Alert and oriented. Mallampati score: I (One). Mouth opening: Normal Thyromental Distance: > 3 finger breadths and Normal Neck Extension: Full Neck Circumference > 40 cm?: No Airway assessment: unknown. Current airway assessment:Normal Cardiac Exam: Regular rate and rhythm. Respiratory Exam: Breath sounds clear to auscultation Assessment ASA Status: 2 . Plan Anesthesia type: MAC and Peripheral Nerve Block Induction: Intravenous and Propofol Maintenance: Postoperative pain management (PONV): Plan for postoperative opioid use PONV Risk Score Adult: 3 PONV Prophylaxis (planned): Ondansetron Anesthetic plan, risks, benefits and alternatives discussed with: Patient or School Lunch Monitor agree tothe anesthesia treatment plan and Patient. H&P Reviewed and Patient examined, no change observed IV access Antibiotics per surgery Electronically signed by: Chevy Coffman MD 09/24/2021 8:36 AM TH AND WELLNESS ADVISOR documented in this encounter Plan of Treatment Not on filedocumented as of this encounter Procedures Procedure Name Priority Date/Time Associated Diagnosis Comme nts PERIPHERAL BLOCK Routine 09/24/2021 9:12 AM Resul ts for this HEALTH AND WELLNESS ADVISOR procedure are i n the results section. PERIPHERAL BLOCK Routine 09/24/2021 9:10 AM Resul ts for this HEALTH AND WELLNESS ADVISOR procedure are i n the results section. documented in this encounter Results PERIPHERAL BLOCK (09/24/2021 9:12 AM HEALTH AND WELLNESS ADVISOR) Narrative EXTERNAL RESULTS - 09/24/2021 9:12 AM CS T Chevy Coffman MD ? 09/24/2021 ??9:14 AM Peripheral Block Performed by: Chevy Coffman MD Authorized by: Chevy Coffman MD Patient Location: ??Preop Start Time: ??09/24/2021 9:04 AM End Time: ??09/24/2021 9:07 AM Performed by: ??Anesthesiologist Body area of block: ??Lower Extremity Lower Extremity Block: adductor canal ?? Laterality: ??Left Correct Position: ??Yes Correct Patient: ??Yes Correct Site: ??Yes Correct Procedure: ??Yes Correct Laterality: ??Yes Site Marked: ??Yes Checklist: risks and benefits discussed, patient agrees to proceed, IV checked, anesthesia consent, monitors/eq uipment checked, surgical consent and at surgeon's request ?? Prep: ??Chloraprep, Hat, Mask and Steril e gloves Monitoring: ??Blood pressure, cardiac mo nitor and continuous pulse oximetry Patient Position: ??Supine Procedures: ultrasound guided ?? Needle Type: ??Insulated Needle Length: ??4 in Needle Gauge: ??21 G Pain on Injection: No ?? Blood aspirated?: No ?? Bolus given as slow fractionated injecti on?: Yes ?? Paresthesias?: ??No Bleeding at site?: ??No Ultrasound guided?: Yes ?? Ultrasound image saved/archived?: Yes ?? Ultrasound Interpretation: anatomic plan e and expected location of nerve appear normal, local anesthetic visualiz ed surrounding nerve, appropriate spread of the medication was noted in re al time, no ultrasound evidence of intravascular and/or intraneural injecti on, needle tip was noted to be adjacent to the nerve/plexus identified and needle and nerve visualized ?? Catheter placed?: No ?? Complication: ??None Procedure Comments: ??Local Anesthetics used (unless noted differently in Local Anesthetics section): 15 mL Ropivacaine 0.5% + 5 ml normal anne-marie ine + 2mg dexamethasone. Performed and signed by Chevy Coffman MD. If block is for post-op pain the surgeon has given a verbal order transferring care of this patient to me for the performance of a regional analgesia block for post-op pain control . It is requested of me because I am uniquely trained and qualified to per form this block and the surgeon is neither trained nor qualified to perform this procedure. Medications Administered lidocaine PF 1 % - Subcutaneous 2 mL - 09/24/2021 9:04:00 AM Ropivacaine administered: ??Ropivacaine 0.5% (5 mg/mL) 5 MG/ML - Regional Nerve Block 15 mL - 09/24/2021 9:07:00 AM Dexamethasone administered: ??Dexamethas one PF 10 MG/ML - Regional Nerve Block 2 mg - 09/24/2021 9:07:00 AM Chevy Coffman MD ANESTHESIA/AR Performing Organization Address City/State/ZIP Code Phon e Number EXTERNAL RESULTS PERIPHERAL BLOCK (09/24/2021 9:10 AM HEALTH AND WELLNESS ADVISOR) Narrative EXTERNAL RESULTS - 09/24/2021 9:10 AM Chevy Chavez MD ? 09/24/2021 ??9:14 AM Peripheral Block Performed by: Chevy Coffman MD Authorized by: Chevy Coffman MD Patient Location: ??Preop Start Time: ??09/24/2021 8:58 AM End Time: ??09/24/2021 9:03 AM Performed by: ??Anesthesiologist Body area of block: ??Lower Extremity Lower Extremity Block: sciatic ?? Laterality: ??Left Correct Position: ??Yes Correct Patient: ??Yes Correct Site: ??Yes Correct Procedure: ??Yes Correct Laterality: ??Yes Site Marked: ??Yes Checklist: risks and benefits discussed, patient agrees to proceed, IV checked, anesthesia consent, monitors/eq uipment checked, surgical consent and at surgeon's request ?? Prep: ??Chloraprep, Hat, Mask and Steril e gloves Monitoring: ??Blood pressure, cardiac mo nitor and continuous pulse oximetry Patient Position: ??Supine Procedures: ultrasound guided ?? Needle Type: ??Insulated Needle Length: ??4 in Needle Gauge: ??21 G Pain on Injection: No ?? Blood aspirated?: No ?? Bolus given as slow fractionated injecti on?: Yes ?? Paresthesias?: ??No Bleeding at site?: ??No Ultrasound guided?: Yes ?? Ultrasound image saved/archived?: Yes ?? Ultrasound Interpretation: anatomic plan e and expected location of nerve appear normal, local anesthetic visualiz ed surrounding nerve, appropriate spread of the medication was noted in re al time, no ultrasound evidence of intravascular and/or intraneural injecti on, needle tip was noted to be adjacent to the nerve/plexus identified and needle and nerve visualized ?? Catheter placed?: No ?? Complication: ??None Procedure Comments: ??Local Anesthetics used (unless noted differently in Local Anesthetics section): 15 mL Ropivacaine 0.5% + 5 ml normal anne-marie ine + 2mg dexamethasone. Popliteal approach to sciatic nerve bloc k. Performed and signed by Chevy Coffman MD. If block is for post-op pain the surgeon has given a verbal order transferring care of this patient to me for the performance of a regional analgesia block for post-op pain control . It is requested of me because I am uniquely trained and qualified to per form this block and the surgeon is neither trained nor qualified to perform this procedure. Medications Administered lidocaine PF 1 % - Subcutaneous 2 mL - 09/24/2021 8:58:00 AM Ropivacaine administered: ??Ropivacaine 0.5% (5 mg/mL) 5 MG/ML - Regional Nerve Block 15 mL - 09/24/2021 9:03:00 AM Dexamethasone administered: ??Dexamethas one PF 10 MG/ML - Regional Nerve Block 2 mg - 09/24/2021 9:03:00 AM Chevy Coffman MD ANESTHESIA/AR Performing Organization Address City/State/ZIP Code Phon e Number EXTERNAL RESULTS documented in this encounter Visit Diagnoses Not on filedocumented in this encounter Administered Medications Inactive Administered Medications - up to 3 most recent administrations Medication Order MAR Action Action Date Dose Rate Site ceFAZolin (aka ANCEF) 2 g in Given 09/24/2021 11:44 AM HEALTH AND WELLNESS ADVISOR 2 g dextrose 100 ml IVPB 2 g, Intravenous, Administer over 30 Minutes, ONCE, On Susanna 09/24/21 at 0800, For 1 dose, Infuse within 60 minutes prior to incision; Re-dose 1 gram IV every 4 hours after initial dose until incision closed., Pre-op dexamethasone (DECADRON) injection Given 09/24/2021 12:10 PM HEALTH AND WELLNESS ADVISOR 4 mg Intravenous, Starting on Susanna 09/24/21 at 1210, Until Susanna 09/24/21 at 1403 dexamethasone PF (DECADRON) injection Given 09/24/2021 9:03 AM HEALTH AND WELLNESS ADVISOR 2 mg Regional Nerve Block, Starting on Susanna 09/24/21 at 0903, Until Susanna 09/24/21 at 0903 dexamethasone PF (DECADRON) injection Given 09/24/2021 9:07 AM HEALTH AND WELLNESS ADVISOR 2 mg Regional Nerve Block, Starting on Susanna 09/24/21 at 0907, Until Susanna 09/24/21 at 0907 dexmedetomidine 20 mcg/5 mL injection Given 09/24/2021 12:57 PM HEALTH AND WELLNESS ADVISOR 4 mcg Intravenous, Starting on Susanna 09/24/21 at 1251, Until Susanna 09/24/21 at 1403 Given 09/24/2021 12:51 PM HEALTH AND WELLNESS ADVISOR 4 mcg fentaNYL (SUBLIMAZE) injection Given 09/24/2021 1:04 PM HEALTH AND WELLNESS ADVISOR 25 mcg Intravenous, Starting on Susanna 09/24/21 at 1144, Until Susanna 09/24/21 at 1403 Given 09/24/2021 1:03 PM HEALTH AND WELLNESS ADVISOR 25 mcg Given 09/24/2021 11:44 AM HEALTH AND WELLNESS ADVISOR 50 mcg lactated ringers infusion Started 09/24/2021 1:28 PM HEALTH AND WELLNESS ADVISOR 25 mL/hr, Intravenous, CONTINUOUS, Starting on Susanna 09/24/21 at 0800, Administer on all preop surgery patients, ages 12 and older, unless specified differently in the Protocol for Preop Initiation of IV fluids Order Set., Pre-op Restarted 09/24/2021 11:41 AM HEALTH AND WELLNESS ADVISOR Started 09/24/2021 7:56 AM HEALTH AND WELLNESS ADVISOR 25 mL/hr 25 mL/hr lidocaine PF (XYLOCAINE) 1 % injection Given 09/24/2021 8:58 AM HEALTH AND WELLNESS ADVISOR 2 mL Subcutaneous, Starting on Susanna 09/24/21 at 0858 lidocaine PF (XYLOCAINE) 1 % injection Given 09/24/2021 9:04 AM HEALTH AND WELLNESS ADVISOR 2 mL Subcutaneous, Starting on Susanna 09/24/21 at 0904 midazolam (VERSED) injection Given 09/24/2021 11:52 AM HEALTH AND WELLNESS ADVISOR 1 mg Intravenous, Starting on Susanna 09/24/21 at 1152, Until Susanna 09/24/21 at 1403 ondansetron (ZOFRAN) injection Given 09/24/2021 11:58 AM HEALTH AND WELLNESS ADVISOR 4 mg Intravenous, Starting on Susanna 09/24/21 at 1158, Until Susanna 09/24/21 at 1403 propofol (DIPRIVAN) 10 mg/mL Rate/Dose 09/24/2021 1:17 70 mcg/kg/min 43.26 injection Change PM HEALTH AND WELLNESS ADVISOR mL/hr Intravenous, Starting on Susanna 09/24/21 at 1149, Until Susanna 09/24/21 at 1403 Rate/Dose Change 09/24/2021 1:07 PM HEALTH AND WELLNESS ADVISOR 140 mcg/kg/min 86.52 mL/hr Rate/Dose Change 09/24/2021 12:44 PM HEALTH AND WELLNESS ADVISOR 85 mcg/kg/min 52.53 mL/hr ropivacaine 0.5% (5 mg/mL) (NAROPIN) 5 MG/ML Given 9:03 AM HEALTH AND WELLNESS ADVISOR 15 mL injection Regional Nerve Block, Starting on Susanna 09/24/21 at 0903, Until Susanna 09/24/21 at 0903 ropivacaine 0.5% (5 mg/mL) (NAROPIN) 5 MG/ML Given 9:07 AM HEALTH AND WELLNESS ADVISOR 15 mL injection Regional Nerve Block, Starting on Susanna 09/24/21 at 0907, Until Susanna 09/24/21 at 0907 documented in this encounter Care Teams Transmission And Protection Engineer Relationship Specialty Start Date End Date PcpSarkis MD PCP - General 05/05/21 [place] [address] documented as of this encounter
--- OUTSIDE RECORDS SUMMARY | 2022-06-16 03:24 | XMS_ITS | Encounter Summary ---
:1970 Author Organization [facility] Address [address] [place] [address] Care Team Providers Name Role Phone Pcp, Pt Declines MD Primary Care Provider Reason for Visit Procedure/Equipment (Routine) - Closed Specialty Diagnoses / Procedures Referred By Contact Refer red To Contact Diagnoses Osteoarthritis of left ankle and foot Devon Camargo MD Procedures CT Ankle Lt WO IV Cont [address] [facility] [place], [place] [address] Referral ID Status Reason Start Date Expiration Date Visits Requ ested Visits Authorized [id number] Closed 09/01/2021 12/01/2022 1 1 Encounter Details Date Type Department Care Team Description 09/03/2021 [place] Nataliia Camargo, Osteoarthritis of left Procedure [place] [address] Devon Lucero MD ankle and foot CT Scan [address] [facility] [address] [place] [place] [address] [address] [place], [place] [phone] (Work) [phone] Social History Tobacco Use Types Packs/Day Years Used Date Smoking Tobacco: Never Smokeless Tobacco: Never Sex Assigned at Date Recorded Not on file documented as of this encounter Plan of Treatment Not on filedocumented as of this encounter Procedures Procedure Name Priority Date/Time Associated Diagnosis Comme nts CT ANKLE LT WO IV Routine 09/03/2021 12:23 Osteoarthritis of l eft Results for this CONT PM CDT ankle and foot procedure are in the results section. documented in this encounter Results CT Ankle Lt WO IV Cont (09/03/2021 12:23 PM CDT) Anatomical Region Laterality Modality Lower Extremity, Ankle, Foot, Leg, Foot & Ankle Computed Tomography Specimen (Source) Anatomical Collection Method Collection Time Re ceived Time Location / / Volume Laterality 09/03/2021 12:13 PM CDT Impressions 09/03/2021 12:56 PM CDT TECHNIQUE: ??Thin section axial scans were obtained through the left ankle. Sagittal and coronal reconstruction was performed without contrast. COMPARISON: 04/09/2021 x-rays. FINDINGS: Postoperative changes with 3 s crews traversing the distal fibula as seen on x-rays. Hardware intact. Alignment anatomic at this site. No fracture line identified. No acute fracture or dislocat ion. Multiple corticated bony densities adjacent to the medial and lateral malleoli compatible with sequela of old trauma. Advanced osteoarthritic changes of the t ibiotalar joint with marginal osteophytes and joint space narrowing. Narrowing is most prominent anteriorly. Subchondral cystic change most prominent at the poste rior tibia. Mild degenerative changes of the posterior subtalar joint. Enthesophytes at the plantar and posterior aspects of the calcaneus. Visualized tendons and musculature are i ntact, within limits of CT modality. No soft tissue mass identified. IMPRESSION: 1. Advanced tibiotalar osteoarthritis. 2. No acute fracture or dislocation. Old posttraumatic changes and postsurgical changes of the distal fibula as described. Procedure Note Todd Gallegos MD - 09/03/2021Formatt ing of this note might be different from the original. IMPRESSION TECHNIQUE: Thin section axial scans were obtained through the left ankle. Sagittal and coronal reconstruction was performed without contrast. COMPARISON: 04/09/2021 x-rays. FINDINGS: Postoperative changes with 3 s crews traversing the distal fibula as seen on x-rays. Hardware intact. Alignment anatomic at this site. No fracture line identified. No acute fracture or dislocation. Multiple corticated bony densities adjacent to th e medial and lateral malleoli compatible with sequela of old trauma. Advanced osteoarthritic changes of the t ibiotalar joint with marginal osteophytes and joint space narrowing. Narrowing is most prominent anteriorly. Subchondral cystic change most prominent at the posterior tibia. Mild degenerative changes of the posterior subtalar joint. Enthesophytes at the plantar and posterior aspects of the calcaneus. Visualized tendons and musculature are i ntact, within limits of CT modality. No soft tissue mass identified. IMPRESSION: 1. Advanced tibiotalar osteoarthritis. 2. No acute fracture or dislocation. Old posttraumatic changes and postsurgical changes of the distal fibula as described. Devon Camargo MD RAD CT documented in this encounter Visit Diagnoses Diagnosis Osteoarthritis of left ankle and foot documented in this encounter Care Teams Steeple Jack Relationship Specialty Start Date End Date PcpSarkis MD PCP - General 05/05/21 [place] [address] documented as of this encounter
--- OUTSIDE RECORDS SUMMARY | 2022-06-16 03:24 | XMS_ITS | Encounter Summary ---
:1970 Author Organization [employer] [facility] Address [address] [place] [address] Care Team Providers Name Role Phone Pcp, Pt Declines MD Primary Care Provider Reason for Visit Procedure/Equipment (Routine) - Incomplete Specialty Diagnoses / Procedures Referred By Contact Refer red To Contact Diagnoses Post-traumatic osteoarthritis of left ankle Steve Workman MD Procedures [place] Injection Ankle Lt [address] [place], [place] [address] Referral ID Status Reason Start Date Expiration Date Visits V isits Requested Authorized [id number] Incomplete 07/03/2021 10/02/2022 1 1 Encounter Details Date Type Department Care Team Description 07/16/2021 Ancillary [facility] Steve Workman Post-traumatic Procedure [address] Judah Galaviz MD osteoarthritis of left Drive [address] [place] ankle [facility] [address] [place], [place] [phone] Social History Tobacco Use Types Packs/Day Years Used Date Smoking Tobacco: Never Smokeless Tobacco: Never Sex Assigned at Date Recorded Not on file documented as of this encounter Plan of Treatment Not on filedocumented as of this encounter Procedures Procedure Name Priority Date/Time Associated Diagnosis Comme nts FL INJECTION ANKLE Routine 07/16/2021 11:12 Post-traumatic Res ults for this LT AM CDT osteoarthritis of left proce dure are in ankle the results section. documented in this encounter Results [place] Injection Ankle Lt [...] 0 out of 10. Steve Workman MD [facility] [place] documented in this encounter Visit Diagnoses Diagnosis Post-traumatic osteoarthritis of left an kle documented in this encounter Administered Medications Inactive Administered Medications - up to 3 most recent administrations Medication Order MAR Action Action Date Dose Rate Site iopamidol (ISOVUE-M 200) 41 % Given 07/16/2021 10:46 AM CDT 2 mL intrathecal injection 2 mL 2 mL, Intra-articular, ONCE, On [place] 07/16/21 at 1115, For 1 dose triamcinolone acetonide (KENALOG-40) 40 MG/ML Given 10:48 AM CDT 40 mg injection 40 mg 40 mg, Intracapsular, ONCE, On [place] 07/16/21 at 1115, For 1 dose documented in this encounter Care Teams Automobile Locator Relationship Specialty Start Date End Date Pcp, Sarkis Ash MD PCP - General 05/05/21 [place] [address] documented as of this encounter
--- OUTSIDE RECORDS SUMMARY | 2022-06-16 03:24 | XMS_ITS | Encounter Summary ---
:1970 Author Organization [facility] Address [address] [address] Care Team Providers Name Role Phone PcpSarkis MD Primary Care Provider Encounter Details Date Type Department Care Team Description 09/17/2021 Notes/Orders [facility] Devon Camargo MD [place] [address] [place] [address] [address] [place] [address] [place], [place] [address] [phone] Social History Tobacco Use Types Packs/Day Years Used Date Smoking Tobacco: Never Smokeless Tobacco: Never Sex Assigned at Date Recorded Not on file documented as of this encounter Plan of Treatment Not on filedocumented as of this encounter Visit Diagnoses Not on filedocumented in this encounter Care Teams Hyperion Developer Relationship Specialty Start Date End Date Sarkis Romero MD PCP - General 05/05/21 [place], [place] [address] documented as of this encounter
--- OUTSIDE RECORDS SUMMARY | 2022-06-16 03:24 | XMS_ITS | Encounter Summary ---
:1970 Author Organization [facility] Address [address], [place] [address] Care Team Providers Name Role Phone Pcp, Pt Declines MD Primary Care Provider Reason for Referral Procedure/Equipment (Routine) - Incomplete Specialty Diagnoses / Procedures Referred By Contact Refer red To Contact Diagnoses Osteoarthritis of left ankle and foot Devon Mejia MD Procedures Case Request OR - Orthopedic Surgery: ANKLE, DISTAL TIBIA CHEILECTOMY [address] [facility] [place], [place] [address] Referral ID Status Reason Start Date Expiration Date Visits V isits Requested Authorized [id number] Incomplete 09/15/2021 12/15/2022 1 1 ATION ADVISER Procedure/Equipment (Routine) - Closed Specialty Diagnoses / Procedures Referred By Contact Refer red To Contact Diagnoses Osteoarthritis of left ankle and foot Devon Mejia MD Procedures CT Ankle Lt WO IV Cont [address] [facility] [place], [place] [address] Referral ID Status Reason Start Date Expiration Date Visits Requ ested Visits Authorized [id number] Closed 09/01/2021 12/01/2022 1 1 Reason for Visit Reason Comments ANKLE PAIN Consult/Transfer Care (Routine) - New Request Specialty Diagnoses / Procedures Referred By Contact Refer red To Contact Diagnoses Arthritis of left ankle Steve Workman MD [address] [employer], [place] [address] Referral ID Status Reason Start Date Expiration Date Visits V isits Requested Authorized [id number] New Request 07/30/2021 10/29/2022 1 1 Encounter Details Date Type Department Care Team Description 09/01/2021 Office Visit [facility] Devon Mejia Osteo arthritis of left CENTER MD [facility] foot (Primary [address] [facility] [address] [facility] [address] Dx) [place] [address] [phone] Social History Tobacco Use Types Packs/Day Years Used Date Smoking Tobacco: Never Smokeless Tobacco: Never Sex Assigned at Date Recorded Not on file documented as of this encounter Patient Instructions Patient InstructionsRadha Travis - 09/01/2021 3:30 PM CDT Thank you for visiting our clinic today. To schedule a follow up appointment please call [phone] To reschedule an imaging appointment please call: [phone] Contact: Triage and or medical questions: [phone] Please notify the office with the following information if you are having surgery, and will need short term disability forms filled out. What is the first day of your leave? When are you returning to work? Are you returning full or university partnership rep? Will you need restrictions for returning to work? Please give us a short description of job duties i.e. desk work vs. labor intensive documented in this encounter Progress Notes Devon Mejia MD - 09/01/2021 3:30 PM CDT Addended by: DEVON MEJIA on: 09/15/2021 12:23 PM Modules accepted: Orders, SmartSet ATION ADVISER Devon Mejia MD - 09/01/2021 3:30 PM CDT HISTORY AND PHYSICAL DATE OF SERVICE: 09/01/21 Referred by: Steve P Workman CC: Chief Complaint Patient presents with ??? ANKLE PAIN History of Present Illness: Saba Berrios is a 50 y.o. female who presents to clinic today for an evaluation of her left ankle. She sustained an ankle fracture in 1994 and underwent an ORIF she had a hardware removal a year later. She did well until 1.5 years ago when she started to develop more pain. She has had 3 injections. Last injection was 07/16/2021 and only worked for a few hours. Most of her pain is anterior and lateral.She has been wearing an ankle brace and it helps. Denies numbness or tingling. The pain is affecting her quality of life and daily activities. She changes what she does due to thepain. Pain is 6/10 most days. She wants to do everything possible before undergoing an ankle fusion. 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 Medication, brace No history of DVT or blood clot. Non-smoker. Non-diabetic. PAST MEDICAL HISTORY: No past medical history on file. [Patient denies any personal history of bleeding disorders, clotting disorders, or adverse reactionsto anesthesia.] PAST SURGICAL HISTORY: Past Surgical History: Procedure Laterality Date ??? ANKLE SURGERY Left 1994 ORIF of left ankle fracture MEDICATIONS: Outpatient Medications Prior to Visit Medication Sig Dispense Refill ??? cetirizine (ZYRTEC) 10 MG tablet Take [...] by mouth every 6 hours as needed. 30 Tablet 0 No facility-administered medications prior to visit. ALLERGIES: Allergies Allergen Reactions ??? Wound Dressing Adhesive Rash Surgical tape SOCIAL HISTORY: Social History Socioeconomic History ??? Marital status: Spouse name: Not on file ??? Number of children: Not on file ??? Years of education: Not on file ??? Highest education level: Not on file Occupational History ??? Not on file Tobacco Use ??? Smoking status: Never Smoker ??? Smokeless tobacco: Never Used Substance and Sexual Activity ??? Alcohol use: Not on file ??? Drug use: Not on file ??? Sexual activity: Not on file Other Topics Concern ??? Not on file Social History Narrative ??? Not on file Social Determinants of Health Financial Resource Strain: ??? Difficulty of Paying Living Expenses: Not on file Food Insecurity: ??? Worried About Running Out of Food in the Last Year: Not on file ??? Ran Out of Food in the Last Year: Not on file Transportation Needs: ??? Lack of Transportation (Medical): Not on file ??? Lack of Transportation (Non-Medical): Not on file Physical Activity: ??? Days of Exercise per Week: Not on file ??? Minutes of Exercise per Session: Not on file Intimate Partner Violence: ??? Fear of Current or Ex-Partner: Not on file ??? Emotionally Abused: Not on file ??? Physically Abused: Not on file ??? Sexually Abused: Not on file Housing Stability: ??? Unable to Pay for Housing in the Last Year: Not on file ??? Number of Places Lived in the Last Year: Not on file ??? 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 No family history of bleeding or anesthesia related complications. REVIEW OF SYSTEMS: 10-point review of systems negative except as noted in HPI. PHYSICAL EXAM: On physical examination the patient appears the stated age, is in no acute distress There is appropriate and non-labored breathing There were no vitals taken for this visit. There is no height or weight on file to calculate BMI. - Patient stands with hindfoot slight valgus - Single stance heel rise - No swelling, erythema or breaks in the skin - Tenderness to palpitation over anterior ankle and lateral gutter. No sinus tarsi pain - No subluxation of peroneal tendons - Motor: Fires EHL / FHL. Ankle dorsiflexion / planar flexion. Inversion / eversion - Sensation: intact in tibial, sural, saphenous, deep peroneal and superficial peroneal - Vascular: palpable dorsalis peds and posterior tibial artery - ROM: ankle good motion, triple joint motion pain free IMAGING: XR 3 views of the left ankle foot on 04/09/2021: Tibiotalar joint OA. Osteophytes in the gutters. Retained 3 screws in the distal fibula. Slight valgus tilt in the tibiotalar joint. IMPRESSION: Saba Berrios is a 50 y.o. female with the followin. Left tibiotalar arthritis PLAN: - Discussed trying non-operative measures first such as brace, injections, activity modification, shoe wear. She has tried all of these and they are not helping much anymore. She would like to try anything to avoid an ankle fusion. Discussed that a TAR is an option, but she is on the younger side for a TAR. Discussed removing the anterior osteophyte on the tibia and debriding some of the osteophytes out of the gutter. The patient would like to move forward with the distal tibia cheilectomy and debridement. We will order a CT scan first to get a better assessment of the osteophytes. - Follow-up: phone call to discuss CT scan Devon Mejia MD Orthopaedic Surgery, Foot and Ankle documented in this encounter Plan of Treatment Scheduled Orders Name Type Priority Associated Diagnoses Order S chedule 2019 Novel Microbiology Routine Osteoarthritis of left Expec jovanny: Coronavirus ankle and foot 09/15/2021, (COVID-19) Expires: 09/15/2022 documented as of this encounter Results CT Ankle Lt WO [...] of the distal fibula as described. Devon Mejia MD RAD CT documented in this encounter Visit Diagnoses Diagnosis Osteoarthritis of left ankle and foot - Primary Osteoarthritis of left ankle and foot documented in this encounter Care Teams Plumbing Engineer Relationship Specialty Start Date End Date Pcp, Sarkis Ash MD PCP - General 05/05/21 [place] [address] documented as of this encounter
--- OUTSIDE RECORDS SUMMARY | 2022-06-16 03:24 | XMS_ITS | Encounter Summary ---
:1970 Author Organization [employer] Address [address] [address] Care Team Providers Name Role Phone Pcp, Pt Declines MD Primary Care Provider Reason for Referral Procedure/Equipment (Routine) - Incomplete Specialty Diagnoses / Procedures Referred By Contact Refer red To Contact Diagnoses Osteoarthritis of left ankle and foot Devon Camargo MD Procedures Airselect Elite/Standard Tall Boot([id number]) [address] [facility] [address] [place], [place] [address] Referral ID Status Reason Start Date Expiration Date Visits V isits Requested Authorized [id number] Incomplete 10/05/2021 01/04/2023 1 1 AL APPRENTICE Therapies (Routine) - Closed Specialty Diagnoses / Procedures Referred By Contact Refer red To Contact Diagnoses Chronic pain of left ankle Devon Camargo MD [address] [facility] [address] [place], [place] [address] Referral ID Status Reason Start Date Expiration Date Visits Requ ested Visits Authorized [id number] Closed 10/05/2021 10/05/2022 1 1 Scheduling Instructions This order is your clinician's recommend ation for a service and is not an insurance referral which authorizes payment. The r ecommended service and/or location may not be covered by your insurance plan. Please c all the number on your insurance card to find out your specific benefits and coverage for the recommended services and/or location. If you need help scheduling the recommen ded services, please ask your clinician's staff to assist you. AL APPRENTICE Procedure/Equipment (Routine) - Incomplete Specialty Diagnoses / Procedures Referred By Contact Refer red To Contact Diagnoses Chronic pain of left ankle Devon Camargo MD Procedures XR Ankle Lt 3 Views [address] [facility] [address] [place] [address] Referral ID Status Reason Start Date Expiration Date Visits V isits Requested Authorized [id number] Incomplete 10/05/2021 01/04/2023 1 1 AL APPRENTICE Reason for Visit Reason Comments Follow-up left ankle Encounter Details Date Type Department Care Team Description 10/05/2021 Office Visit Devon Keene pain of left ankle (Primary Dx); Orthopaedics & Sports MD [place] Osteoarthritis of left ankle and foot Medicine [address] [facility] [address] [place], [place] [address] [phone] Social History Tobacco Use Types Packs/Day Years Used Date Smoking Tobacco: Never Smokeless Tobacco: Never Sex Assigned at Date Recorded Not on file documented as of this encounter Progress Notes Devon Camargo MD - 10/05/2021 11:45 AM CST FOLLOW-UP DATE OF SERVICE: 10/05/21 CC: Chief Complaint Patient presents with ??? Follow-up left ankle DOS: 09/24/2021 Surgery: Left distal tibia cheilectomy SUBJECTIVE: Saba Berrios is a 50 y.o. female who presents to clinic today for follow-up on her left ankle. Patient knows that she has been nonweightbearing in a splint. She is doing well. She is taking her DVT prophylaxis as prescribed. No other concerns or complaints today. PHYSICAL EXAM: On physical examination the patient appears the stated age, is in no acute distress There is appropriate and non-labored breathing There were no vitals taken for this visit. - Incision healing well. - mild swelling. No erythema. Minimal ecchymosis. No breaks in the skin - Motor: Fires EHL / FHL. Ankle dorsiflexion / planar flexion. Inversion / eversion - Sensation: intact in tibial, sural, saphenous, deep peroneal and superficial peroneal - Vascular: palpable dorsalis peds and posterior tibial artery IMAGING: XR 3 views of the left ankle on 10/05: Shows removal of anterior osteophytes after this tibia. IMPRESSION: Saba Berrios is a 50 y.o. female with the followin. Two weeks status post left distal tibia cheilectomy for anterior ankle impingement PLAN: - We discussed the physical and imaging findings with the patient and how this relates the patient'ssymptomology. She is progressing well. - Weightbearing: Progress to weight-bearing as tolerated over the next week, and be fully weightbearing by 10/12 - DVT Prophy: Can stop months weightbearing - Physical Therapy: Start an 2 weeks to work on ankle range of motion - Follow-up: 4 weeks Devon Camargo MD Orthopedic Foot and Ankle Surgery AL APPRENTICE documented in this encounter Plan of Treatment Scheduled Referrals Name Type Priority Associated Diagnoses Order S chedule Physical Therapy Referral Routine Chronic pain of left ank le Ordered: 10/05/2021 documented as of this encounter Results XR Ankle Lt 3 Views (10/05/2021 11:50 AM SIGNAL APPRENTICE) Anatomical Region Laterality Modality Lower Extremity, Ankle, Foot & Ankle Dig ital Radiography Specimen (Source) Anatomical Collection Method Collection Time Re ceived Time Location / / Volume Laterality 10/05/2021 11:43 AM SIGNAL APPRENTICE Impressions 10/05/2021 11:53 AM SIGNAL APPRENTICE COMPARISON: ??CT 09/03/2021 FINDINGS: ??3 views obtained [...] Diagnoses Diagnosis Chronic pain of left ankle - Primary Osteoarthritis of left ankle and foot Chronic pain of left ankle documented in this encounter Care Teams Barrow Worker Helper Relationship Specialty Start Date End Date Pcp, Pt MD Mihir PCP - General 05/05/21 [place] [address] documented as of this encounter
== END 2022-06-10 09:42 | disposition home or self-care (01) ==
PROVIDERS: PCP Family Medicine; Visit Provider Family Medicine
DX: R10.11 Right upper quadrant pain (principal)
CPT/HCPCS: 80053; 83690; 85025

== ENCOUNTER 2022-06-18 09:03 | Outpatient (CLI) | payer BC, SELFPAY ==
--- OUTSIDE RECORDS SUMMARY | 2022-06-18 09:05 | XMS_ITS | Encounter Summary ---
:1970 Author Organization [employer] Address [address] [place] [address] Care Team Providers Name Role Phone Pcp, Pt Declines Primary Care Provider Reason for Referral (Routine) - New Request Specialty Diagnoses / Procedures Referred By Contact Refer red To Contact Diagnoses Aftercare following surgery of the musculoskeletal system Devon Camargo MD Procedures Triamcinolone Acet Inj Nos: (per 10 mg) [address] [facility] [place], [place] [address] Referral ID Status Reason Start Date Expiration Date Visits V isits Requested Authorized [id number] New Request 12/14/2021 03/15/2023 1 1 ER/WAITRESS CAPTAIN Reason for Visit Reason Comments Post Op Exam Left ankle Encounter Details Date Type Department Care Team Description 12/14/2021 Office Visit Jess Keene [facility] Orthopaedics & Sports Devon Lucero MD surgery of the Medicine [address] [facility] musculoskeletal system [address] [place], [place] (Primary Dx) [place] [phone] Social History Tobacco Use Types Packs/Day Years [...] Camargo MD Orthopedic Foot and Ankle Surgery ER/WAITRESS CAPTAIN documented in this encounter Plan of Treatment Not on filedocumented as of this encounter Visit Diagnoses Diagnosis Aftercare following surgery of the [facility] - Primary Aftercare following surgery of the [facility] loskeletal system, NEC documented in this encounter Care Teams Sewage Disposal Engineer Relationship Specialty Start Date End Date Pcp, Sarkis Ash MD PCP - General 05/05/21 [place] [address] documented as of this encounter
--- OUTSIDE RECORDS SUMMARY | 2022-06-18 09:05 | XMS_ITS | Encounter Summary ---
:1970 Author Organization [facility] Address [address] [address] Care Team Providers Name Role Phone PcpSarkis MD Primary Care Provider Encounter Details Date Type Department Care Team Description 03/03/2022 Notes/Orders [facility] Devon Camargo MD [place] [address] [place] [address] [address] [place] [address] [place], [place] [address] [phone] Social History Tobacco Use Types Packs/Day Years Used Date Smoking Tobacco: Never Smokeless Tobacco: Never Sex Assigned at Date Recorded Not on file documented as of this encounter Plan of Treatment Not on filedocumented as of this encounter Visit Diagnoses Not on filedocumented in this encounter Care Teams Qm Consultant Relationship Specialty Start Date End Date Sarkis Romero MD PCP - General 05/05/21 [place], [place] [address] documented as of this encounter
--- OUTSIDE RECORDS SUMMARY | 2022-06-18 09:05 | XMS_ITS | Encounter Summary ---
:1970 Author Organization [employer] Address [address], [place] [address] Care Team Providers Name Role Phone PcpSarkis MD Primary Care Provider Reason for Visit Reason Comments Surgery Questions incision Encounter Details Date Type Department Care Team Description 10/22/2021 Telephone [facility] Devon Sargent y Questions Orthopaedics & Sports MD Jazmine (incision) Medicine [address] [facility] [address] [place], [place] [address] [phone] Social History Tobacco Use Types Packs/Day Years [...] off over the next week or so. R WOOD SORTER documented in this encounter Plan of Treatment Not on filedocumented as of this encounter Visit Diagnoses Not on filedocumented in this encounter Care Teams Supervisor Mails Relationship Specialty Start Date End Date PcpSarkis MD PCP - General 05/05/21 [place] [address] documented as of this encounter
--- OUTSIDE RECORDS SUMMARY | 2022-06-18 09:05 | XMS_ITS | Encounter Summary ---
:1970 Author Organization [facility] Address [address] [address] Care Team Providers Name Role Phone Pcp, Pt Declines MD Primary Care Provider Reason for Visit Reason Comments Surgery, After Care How long to use crutches Incisional Questions Encounter Details Date Type Department Care Team Description 10/22/2021 Telephone [facility] Devon Sargent y, After Care Orthopaedics & Sports MD Jazmine (How long to use Medicine [address] [facility] [address] finch); Incisional [address] [place], [place] Questions [place], [place] [address] [phone] Social History Tobacco Use Types Packs/Day Years Used Date Smoking Tobacco: Never Smokeless Tobacco: Never Sex Assigned at Date Recorded Not on file documented as of this encounter Nursing Notes Barb Parnell RN - 10/22/2021 3:17 PM CST eDvon Camargo MD (3:16 PM) Just called the patient. Incision looks okay. Scab should fall off over next week or so. I told her she can come out of her CAM boot at this time. Gauze over the incision until fully healed. LIANCE TESTER Barb Parnell RN - 10/22/2021 12:35 PM CST Action: Input needed Next Step: Route to ORTHO PN TRIAGE [[id number]] Specific Request(s): 1. Please advise if anything [...] Pt verbalized understanding to all advice given. LIANCE TESTER Corinne Ribeiro - 10/22/2021 12:29 PM CST Has the patient recently had surgery or an injury? Yes. Date of Surgery: September 24, 2021 Type of Surgery: ANKLE, DISTAL TIBIA CHEILECTOMY (Left) How may we help you today? Pt is calling to ask how long she should continue to use her crutches. Please call the pt at [phone] to discuss Describe your symptoms/concerns: L ankle When did the issue start: Surgery Have you been seen for this recently?: 10/05/21 Dr Camargo [Severity Of Illness Coordinator/Appt Center: If yes, please include date and provider.] Is it okay to leave detailed message on your voicemail? Yes [Severity Of Illness Coordinator/Appt Center: If this call is after 3 p.m., communicate to patient: If we are not able to get back to you by the end of the day and your symptoms worsen please contact the Careline] LIANCE TESTER documented in this encounter Plan of Treatment Not on filedocumented as of this encounter Visit Diagnoses Not on filedocumented in this encounter Care Teams Director Supplier Quality Relationship Specialty Start Date End Date Pcp, Sarkis Ash MD PCP - General 05/05/21 [place] [address] documented as of this encounter
--- OUTSIDE RECORDS SUMMARY | 2022-06-18 09:05 | XMS_ITS | Encounter Summary ---
:1970 Author Organization [employer] Address [address] [address] Care Team Providers Name Role Phone Pcp, Pt Declines Primary Care Provider Reason for Visit Reason Comments Post Op Exam left ankle Encounter Details Date Type Department Care Team Description 11/09/2021 Office Visit BEULAH Camargo Osteoarthrit is of left ankle and foot (Primary Dx); Orthopaedics & Sports Devon Lucero MD Aftercare following surgery of the [facility]; Medicine [address] [place] [address] Arthritis of left ankle [address] [place] [phone] Social History Tobacco Use Types Packs/Day Years [...] Camargo MD Orthopedic Foot and Ankle Surgery L SERVER documented in this encounter Plan of Treatment Not on filedocumented as of this encounter Visit Diagnoses Diagnosis Osteoarthritis of left ankle and foot - Primary Aftercare [facility] Aftercare following [facility], [facility] Arthritis of left ankle Unspecified arthropathy, ankle and foot documented in this encounter Care Teams Die Drawing Checker Relationship Specialty Start Date End Date Pcp, Sarkis Ash MD PCP - General 05/05/21 [place] [address] documented as of this encounter
--- OUTSIDE RECORDS SUMMARY | 2022-06-18 09:05 | XMS_ITS | Clinical Summary ---
:1970 Author Organization [facility] Address [address] [address] Care Team Providers Name Role Phone Pcp, [...] for each transition of care or referral. eMithilaHaat Allergies Active Allergy Reactions Severity Noted Date [...] Added automatically from request for padma oscar [id number] Immunizations Name Administration Dates Next Due Pfizer (Comirnaty) COVID-19, 12+ Yrs Purple Top 07/02/2021, 06/10/2021 Social History Tobacco Use Types Packs/Day Years Used Date Smoking Tobacco: Never Smokeless Tobacco: Never Sex Assigned at Date Recorded Not on file Last Filed Vital Signs Vital Sign Reading Time Taken Comments Blood Pressure 108/70 09/24/2021 2:30 PM COLLAR TAILOR Pulse 71 09/24/2021 2:30 PM COLLAR TAILOR Temperature 36.6 ??C (97.9 ??F) 09/24/2021 2:02 PM COLLAR TAILOR Respiratory Rate 16 09/24/2021 2:30 PM COLLAR TAILOR Oxygen Saturation 98% 09/24/2021 2:30 PM COLLAR TAILOR Inhaled Oxygen Concentration - - Weight 103 kg (227 lb) 09/24/2021 7:45 AM COLLAR TAILOR Height 170.2 cm (5' 7) 09/24/2021 7:45 AM COLLAR TAILOR Body Mass Index 35.55 09/24/2021 7:45 AM COLLAR TAILOR Plan of Treatment Health Maintenance Due Date [...] Dates Phone Addre ss Type Group BCBS BCSSM REHAB [id number] 2021-Present [address] [address] [place] [address] Saba Berrios Personal/Family Self 1970 [address] (Home) [place] [address] Advance Directives Latest Code Status on File Code Status Date Activated Date Inactivated Comments Full Code 09/24/2021 1:43 PM 09/24/2021 4:49 PM Care Teams Log Haul Chain Feeder Relationship Specialty Start Date End Date Sarkis Romero MD PCP - General 05/05/21 [place] [address]
--- OUTSIDE RECORDS SUMMARY | 2022-06-18 09:05 | XMS_ITS | Encounter Summary ---
:1970 Author Organization [facility] Address [address] [address] Care Team Providers Name Role Phone PcpSarkis MD Primary Care Provider Encounter Details Date Type Department Care Team Description 11/07/2021 Notes/Orders [facility] Devon Camargo MD [place] [address] [place] [address] [address] [place] [address] [place], [place] [address] [phone] Social History Tobacco Use Types Packs/Day Years Used Date Smoking Tobacco: Never Smokeless Tobacco: Never Sex Assigned at Date Recorded Not on file documented as of this encounter Plan of Treatment Not on filedocumented as of this encounter Visit Diagnoses Not on filedocumented in this encounter Care Teams Metal Sprayer Relationship Specialty Start Date End Date Sarkis Romero MD PCP - General 05/05/21 [place], [place] [address] documented as of this encounter
--- OUTSIDE RECORDS SUMMARY | 2022-06-18 09:06 | XMS_ITS | Encounter Summary ---
:1970 Author Organization [employer] Address [address] [place] [address] Care Team Providers Name Role Phone Pcp, Pt Declines MD Primary Care Provider Reason for Visit Procedure/Equipment (Routine) - Incomplete Specialty Diagnoses / Procedures Referred By Contact Refer red To Contact Diagnoses Post-traumatic osteoarthritis of left ankle Steve Workman MD Procedures [place] Injection Ankle Lt [address] [place], [place] [address] Referral ID Status Reason Start Date Expiration Date Visits V isits Requested Authorized [id number] Incomplete 07/03/2021 10/02/2022 1 1 Encounter Details Date Type Department Care Team Description 07/16/2021 Ancillary [facility] Steve Workman Post-traumatic Procedure [address] Judah Galaviz MD osteoarthritis of left Drive [address] [facility] [address] [place], [place] [phone] Social History Tobacco Use Types Packs/Day Years [...] 0 out of 10. Steve Workman MD [facility] [place] documented in this encounter Visit [...] dose documented in this encounter Care Teams Senior Power Scheduler Relationship Specialty Start Date End Date Pcp, Sarkis Ash MD PCP - General 05/05/21 [place] [address] documented as of this encounter
--- OUTSIDE RECORDS SUMMARY | 2022-06-18 09:06 | XMS_ITS | Encounter Summary ---
:1970 Author Organization [email or web address] Address [address] [address] Care Team Providers Name Role Phone Pcp, Pt Declines Primary Care Provider Reason for Visit Reason Comments Follow Up Ct Results Encounter Details Date Type Department Care Team Description 09/08/2021 Telephone [facility] Devon Camargo Fol [facility] Up [facility] Results Surgery Center [address] [facility] [address] [facility] [place], [place] [address] [address] [place] [address] [phone] (Wo rk) Social History Tobacco Use Types Packs/Day Years Used Date Smoking Tobacco: Never Smokeless Tobacco: Never Sex Assigned at Date Recorded Not on file documented as of this encounter Nursing Notes Dian Salvador - 09/15/2021 12:03 PM CST Patient LVM asking to schedule surgery - please enter optime orders. She would like surgery @ [facility]. Thank you, CD N CERAMIST Devon Camargo MD - 09/08/2021 4:31 PM CDT Discussed that there is a large anterior osteophyte on the tibia. Removing this could help since most of her pain is when she dorsiflexes her ankle. Discussed that this will likely not cure her pain and will not be a chcf fix, but will potentially give her a few more months or years before movingon to an ankle fusion. documented in this encounter Plan of Treatment Not on filedocumented as of this encounter Visit Diagnoses Not on filedocumented in this encounter Care Teams Political Advisor Relationship Specialty Start Date End Date PcpSarkis MD PCP - General 05/05/21 [place] [address] documented as of this encounter
--- OUTSIDE RECORDS SUMMARY | 2022-06-18 09:06 | XMS_ITS | Encounter Summary ---
:1970 Author Organization [employer] Address [address] [address] Care Team Providers Name Role Phone Pcp, Pt Declines Primary Care Provider Reason for Visit Reason Comments APPOINTMENT REQUEST WORK IN Encounter Details Date Type Department Care Team Description 07/17/2021 Telephone [facility] [address] Steve Wrokman , APPOINTMENT REQUEST [facility] (WORK IN) [address] [place] [address] [phone] (Wo rk) Social History Tobacco Use Types [...] be she is okay to travel to [facility]. Please call to advise. When did the issue start: NA Have you been seen for this recently?: NA [French Drawer/Appt Center: If yes, please include date and provider.] Is it okay to leave detailed message on your voicemail? YES [French Drawer/Appt Center: If this call is after 3 p.m., communicate to patient: If we are not able to get back to you by the end of the day and your symptoms worsen please contact the Careline] documented in this encounter Plan of Treatment Not on filedocumented as of this encounter Visit Diagnoses Not on filedocumented in this encounter Care Teams Wad Blanking Press Adjuster Relationship Specialty Start Date End Date Pcp, Sarkis Ash MD PCP - General 05/05/21 [place] [address] documented as of this encounter
--- OUTSIDE RECORDS SUMMARY | 2022-06-18 09:06 | XMS_ITS | Encounter Summary ---
:1970 Author Organization [facility] Address [address], [place] [address] Care Team Providers Name Role Phone Pcp, Pt Declines MD Primary Care Provider Reason for Referral Procedure/Equipment (Routine) - Incomplete Specialty Diagnoses / Procedures Referred By Contact Refer red To Contact Diagnoses Osteoarthritis of left ankle and foot Devon Mejia MD Procedures Case Request OR - Orthopedic Surgery: ANKLE, DISTAL TIBIA CHEILECTOMY [address] [facility] [place], [place] [address] Referral ID Status Reason Start Date Expiration Date Visits V isits Requested Authorized [id number] Incomplete 09/15/2021 12/15/2022 1 1 RAL RESOURCES SPECIALIST Procedure/Equipment (Routine) - Closed Specialty Diagnoses / Procedures Referred By Contact Refer red To Contact Diagnoses Osteoarthritis of left ankle and foot Devon Mejia MD Procedures CT Ankle Lt WO IV Cont [address] [facility] [place], [place] [address] Referral ID Status Reason Start Date Expiration Date Visits Requ ested Visits Authorized [id number] Closed 09/01/2021 12/01/2022 1 1 Reason for Visit Reason Comments ANKLE PAIN Consult/Transfer Care (Routine) - New Request Specialty Diagnoses / Procedures Referred By Contact Refer red To Contact Diagnoses Arthritis of left ankle Steve Workman MD [address] [place], [place] [address] Referral ID Status Reason Start Date Expiration Date Visits V isits Requested Authorized [id number] New Request 07/30/2021 10/29/2022 1 1 Encounter Details Date Type Department Care Team Description 09/01/2021 Office Visit [facility] Devon Mejia Osteo arthritis of left CENTER MD Jazmine ankle and foot (Primary [address] [facility] [address] [facility] [address] Dx) [place] [address] [phone] Social History Tobacco Use Types Packs/Day Years Used Date Smoking Tobacco: Never Smokeless Tobacco: Never Sex Assigned at Date Recorded Not on file documented as of this encounter Patient Instructions Patient InstructionsRadha Travis - 09/01/2021 3:30 PM CDT Thank you for visiting our clinic today. To schedule a follow up appointment please call [phone] To reschedule an imaging appointment please call: [phone] Contact: Triage and or medical questions: [phone] Please notify the office with the following information if you are having surgery, and will need short term disability forms filled out. What is the first day of your leave? When are you returning to work? 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 Will you need restrictions for returning to work? Please give us a short description of job duties i.e. desk work vs. labor intensive documented in this encounter Progress Notes Devon Mejia MD - 09/01/2021 3:30 PM CDT Addended by: DEVON MEJIA on: 09/15/2021 12:23 PM Modules accepted: Orders, SmartSet RAL RESOURCES SPECIALIST Devon Mejia MD - 09/01/2021 3:30 PM [...] possible before undergoing an ankle fusion. 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
--- OUTSIDE RECORDS SUMMARY | 2022-06-18 09:06 | XMS_ITS | Encounter Summary ---
:1970 Author [facility] Address [address], [place] [address] Care Team Providers Name Role Phone Pcp, Pt Declines MD Primary Care Provider Reason for Referral (Routine) - Incomplete Specialty Diagnoses / Procedures Referred By Contact Refer red To Contact Procedures Chevy Coffamn MD Anesthesia Guided Block [address] [place], [place] [address] Referral ID Status Reason Start Date Expiration Date Visits V isits Requested Authorized [id number] Incomplete 09/24/2021 12/24/2022 1 1 S SUPPORT ADMINISTRATOR Procedure/Equipment (Routine) - Incomplete Specialty Diagnoses / Procedures Referred By Contact Refer red To Contact Procedures Devon Camargo MD AL C Arm Mini [address] [place], [place] [address] Referral ID Status Reason Start Date Expiration Date Visits V isits Requested Authorized [id number] Incomplete 09/21/2021 12/21/2022 1 1 S SUPPORT ADMINISTRATOR Reason for Visit Auth/Cert Specialty Diagnoses / Procedures Referred By Contact Refer red To Contact Diagnoses Osteoarthritis of left ankle and foot Procedures ANKLE, DISTAL TIBIA CHEILECTOMY Referral ID Status Reason Start Date Expiration Date Visits Requ ested Visits Authorized [id number] 1 1 Encounter Details Date Type Department Care Team Description 09/24/2021 Hospital Encounter [facility]B SURGERY C TR Devon Camargo, [address] [facility] [place], [place] [address] [facility] [address] [place] [address] [phone] (Wo rk) Social History Tobacco Use Types Packs/Day Years Used Date Smoking Tobacco: Never Smokeless Tobacco: Never Sex Assigned at Date Recorded Not on file documented as of this encounter Last Filed Vital Signs Vital Sign Reading Time Taken Comments Blood Pressure 108/70 09/24/2021 2:30 PM SALES SUPPORT ADMINISTRATOR Pulse 71 09/24/2021 2:30 PM SALES SUPPORT ADMINISTRATOR Temperature 36.6 ??C (97.9 ??F) 09/24/2021 2:02 PM SALES SUPPORT ADMINISTRATOR Respiratory Rate 16 09/24/2021 2:30 PM SALES SUPPORT ADMINISTRATOR Oxygen Saturation 98% 09/24/2021 2:30 PM SALES SUPPORT ADMINISTRATOR Inhaled Oxygen Concentration - - Weight 103 kg (227 lb) 09/24/2021 7:45 AM SALES SUPPORT ADMINISTRATOR Height 170.2 cm (5' 7) 09/24/2021 7:45 AM SALES SUPPORT ADMINISTRATOR Body Mass Index 35.55 09/24/2021 7:45 AM SALES SUPPORT ADMINISTRATOR documented in this encounter Medications at Time [...] AM CST PPA call completed by calling [phone] and spoke to patient. Advised of arrival time 0730. Reviewed pre-procedure questions, detailed instructions with NPO guidelines and address given. Advised of visitor guidelines (1 visitor, 18+ yr in age for adults and 2 parents or legal guardians- peds)All questions answered, no other needs at this time. S SUPPORT ADMINISTRATOR documented in this encounter Procedure Notes Devon [...] weight-bearing CAMboot. Devon Camargo M.D. Orthopedic Surgery S SUPPORT ADMINISTRATOR Devon Camargo MD - 09/24/2021 1:37 PM [...] of splint Devon Camargo M.D. Orthopedic Surgery S SUPPORT ADMINISTRATOR documented in this encounter OR Notes H&P [...] candidate for surgery. Devon Camargo MD 09/24/2021 S SUPPORT ADMINISTRATOR documented in this encounter Plan of Treatment Not on filedocumented as of this encounter Procedures Procedure Name Priority Date/Time Associated Diagnosis Comme nts FL C ARM MINI Routine 09/24/2021 1:15 Results for this PM SALES SUPPORT ADMINISTRATOR procedure are i n the results section. CHEILECTOMY 09/24/2021 11:36 Osteoarthritis of left AM SALES SUPPORT ADMINISTRATOR ankle and foot US ANESTHESIA GUIDED STAT 09/24/2021 8:27 Resu lts for this BLOCK AM SALES SUPPORT ADMINISTRATOR procedure are i n the results section. documented in this encounter Results FL C Arm Mini (09/24/2021 1:15 PM SALES SUPPORT ADMINISTRATOR) Anatomical Region Laterality Modality Radio Fluoroscopy Specimen (Source) Anatomical Location Collection Method / Collectio n Time Received Time / Laterality Volume Narrative 09/24/2021 4:31 PM SALES SUPPORT ADMINISTRATOR These images were obtained during a surg ical procedure. Devon Camargo MD RAD FL US Anesthesia Guided Block (09/24/2021 8:27 AM SALES SUPPORT ADMINISTRATOR) Anatomical Region Laterality Modality Ultrasound Specimen (Source) Anatomical Location Collection Method / Collectio n Time Received Time / Laterality Volume Narrative 09/24/2021 8:27 AM SALES SUPPORT ADMINISTRATOR If an Anesthesia block was performed please [...] acetaminophen (TYLENOL) tablet Given 09/24/2021 7:55 AM SALES SUPPORT ADMINISTRATOR 1,00 0 mg 1,000 mg 1,000 mg, [...] (SUBLIMAZE) injection 25-50 mcg 25-50 mcg, Intravenous, [id number], Other, 25 mcg for Mi ld to [...] lactated ringers infusion Started 09/24/2021 1:28 PM SALES SUPPORT ADMINISTRATOR 25 mL/hr, Intravenous, CONTINUOUS, Starting on Susanna 09/24/21 at 0800, Administer on all preop surgery patients, ages 12 and older, unless specified differently in the Protocol for Preop Initiation of IV fluids Order Set., Pre-op Restarted 09/24/2021 11:41 AM SALES SUPPORT ADMINISTRATOR Started 09/24/2021 7:56 AM SALES SUPPORT ADMINISTRATOR 25 mL/hr 25 mL/hr meperidine (DEMEROL) injection 12.5 mg 12.5 mg, Intravenous, [id number], Shiverin g, Starting on Susanna 09/24/21 at 0814, Until Susanna 09/24/21 at 1629, For 2 doses, Maxim um cumulative dose is 25 mg. Do not give to patients receiving MAO inhibitors (e.g. phenelzine (NA RDIL), tranylcypromine (PARNATE), selegiline (ELDEPRYL))., PACU/Recovery midazolam (VERSED) injection 1-2 mg Given 09/24/2021 8:56 AM SALES SUPPORT ADMINISTRATOR 2 mg 1-2 mg, Intravenous, [id number], Sedation, Anxiety, Procedure, Starting on Susanna 09/24/21 [...] Recently Administered Medications Times are shown in SALES SUPPORT ADMINISTRATOR. Scheduled Medication Order 09/22/2021 09/23/2021 09/24/2021 acetaminophen [...] (SUBLIMAZE) injection 25-50 mcg 25-50 mcg, Intravenous, [id number], Other, 25 mcg for Mild to Moderate [...] longer acting agent is desired., Starting on [facility] 09/24/21 at 0814, Until Susanna 09/24/21 [...] (DEMEROL) injection 12.5 mg 12.5 mg, Intravenous, [id number], Shiverin g, Starting on Susanna 09/24/21 at 0814, Until [facility] 09/24/21 at 1629, For 2 doses, Maximum cumulative dose is 25 mg. Do not give to patients receiving MAO inhibitors ( e.g. phenelzine (NARDIL), tranylcypromin e (PARNATE), selegiline (ELDEPRYL))., PACU/Recovery midazolam (VERSED) injection 1-2 mg 0856 (Given - Provider: Emmy Holguin RN) 1-2 mg, Intravenous, [id number], Sedation, Anxiety, Procedure, Starting on Susanna 09/24/21 [...] PACU/Recovery documented in this encounter Care Teams Java Designer Relationship Specialty Start Date End Date Pcp, Sarkis Ash MD PCP - General 05/05/21 [place] [address] documented as of this encounter
--- OUTSIDE RECORDS SUMMARY | 2022-06-18 09:06 | XMS_ITS | Encounter Summary ---
:1970 Author Organization [facility] Address [address] [place] [address] Care Team Providers Name Role Phone Pcp, Pt Declines Primary Care Provider Reason for Visit Reason Comments Refill Orders Needed Encounter Details Date Type Department Care Team Description 07/01/2021 Telephone Specialty Center 39[address] Steve Workman , Refill; Orders Needed [facility] [id number] [place] [id number] (Wo rk) Social History Tobacco Use Types Packs/Day Years Used Date Smoking Tobacco: Never Smokeless Tobacco: Never Sex Assigned at Date Recorded Not on file documented as of this encounter Nursing Notes Barb Parnell RN - 07/03/2021 10:16 AM CDT Spoke with the pt and made her aware that an order was placed for the injection and she can call [phone] to schedule this appointment. Also her tramadol [...] Next Step: Route to ORTHO PN TRIAGE [28264] Specific Request(s): 1. Patient requesting order for ankle injection recommended at [facility] 2. Patient requesting refill of tramadol. [...] the counter medications? None Pharmacy (if applicable): [facility] ADAM Aguilera - [id number] [id number] [address] [place] [id number] Comments: Belkis Scott - 07/01/2021 2:19 PM CDT Has the patient recently had surgery or an injury? No What referral/order is being requested: injection Why is the referral/order needed: left ankle Is it okay to leave detailed message on your voicemail? yes [Box Estimator/Appt Center: If this call is after 3 p.m., communicate to patient: If we are not able to get back to you by the end of the day and your symptoms worsen please contact the Careline] [Box Estimator: Please inform patient that a referral does [...] foot documented in this encounter Care Teams Tourist Agent Relationship Specialty Start Date End Date PcpSarkis MD PCP - General 05/05/21 [place] [address] documented as of this encounter
--- OUTSIDE RECORDS SUMMARY | 2022-06-18 09:06 | XMS_ITS | Encounter Summary ---
:1970 Author Organization [employer] Address [address] [address] Care Team Providers Name Role Phone Pcp, Pt Declines Primary Care Provider Reason for Visit Procedure/Equipment (Routine) - Incomplete Specialty Diagnoses / Procedures Referred By Contact Refer red To Contact Diagnoses Chronic pain of left ankle Devon Camargo MD Procedures XR Ankle Lt 3 Views [address] [facility] [place], [place] [address] Referral ID Status Reason Start Date Expiration Date Visits V isits Requested Authorized [id number] Incomplete 10/05/2021 01/04/2023 1 1 Encounter Details Date Type Department Care Team Description 10/05/2021 Ancillary Park Devon Rollins Chronic pain of Procedure Samuel Lucero MD left ankle Radiology [address] [facility] [address] [place], [place] [address] [address] [place], [place] [phone] [address] (Work) [phone] Social History Tobacco Use Types Packs/Day Years [...] pain o f left Results for this CHEMICAL TREATMENT PLANT TECHNICIAN ankle procedure are i n the results section. documented in this encounter Results XR Ankle Lt 3 Views (10/05/2021 11:50 AM CHEMICAL TREATMENT PLANT TECHNICIAN) Anatomical Region Laterality Modality Lower Extremity, Ankle, Foot & Ankle Dig ital Radiography Specimen (Source) Anatomical Collection Method Collection Time Re ceived Time Location / / Volume Laterality 10/05/2021 11:43 AM CHEMICAL TREATMENT PLANT TECHNICIAN Impressions 10/05/2021 11:53 AM CHEMICAL TREATMENT PLANT TECHNICIAN COMPARISON: ??CT 09/03/2021 FINDINGS: ??3 views obtained [...] ankle documented in this encounter Care Teams Electrical Wirer Relationship Specialty Start Date End Date Pcp, Sarkis Ash MD PCP - General 05/05/21 [place] [address] documented as of this encounter
--- OUTSIDE RECORDS SUMMARY | 2022-06-18 09:06 | XMS_ITS | Encounter Summary ---
:1970 Author Organization [facility] Address [address] [place] [address] Care Team Providers Name Role Phone Pcp, Pt Declines MD Primary Care Provider Reason for Visit Procedure/Equipment (Routine) - Closed Specialty Diagnoses / Procedures Referred By Contact Refer red To Contact Diagnoses Osteoarthritis of left ankle and foot Devon Camargo MD Procedures CT Ankle Lt WO IV Cont [address] [facility] [place], [place] [address] Referral ID Status Reason Start Date Expiration Date Visits Requ ested Visits Authorized [id number] Closed 09/01/2021 12/01/2022 1 1 Encounter Details Date Type Department Care Team Description 09/03/2021 Ancillary Park Nataliia Camargo, Osteoarthritis of left Procedure [place] [address] Devon Lucero MD ankle and foot CT Scan [address] [facility] [address] [place], [place] [address] [address] [place], [place] [phone] [address] (Work) [phone] Social History Tobacco Use Types Packs/Day Years [...] foot documented in this encounter Care Teams Electronics Worker Relationship Specialty Start Date End Date PcpSarkis MD PCP - General 05/05/21 [place] [address] documented as of this encounter
--- OUTSIDE RECORDS SUMMARY | 2022-06-18 09:06 | XMS_ITS | Encounter Summary ---
:1970 Author Organization [facility] Address [address], [place] [address] Care Team Providers Name Role Phone PcpSarkis MD Primary Care Provider Encounter Details Date Type Department Care Team Description 09/17/2021 Notes/Orders [facility] Devon Camargo MD [facility] [address] [place] [address] [address] [place] [address] [place], [place] [address] [phone] Social History Tobacco Use Types Packs/Day Years Used Date Smoking Tobacco: Never Smokeless Tobacco: Never Sex Assigned at Date Recorded Not on file documented as of this encounter Plan of Treatment Not on filedocumented as of this encounter Visit Diagnoses Not on filedocumented in this encounter Care Teams Route Aide Relationship Specialty Start Date End Date Sarkis Romero MD PCP - General 05/05/21 [place], [place] [address] documented as of this encounter
--- OUTSIDE RECORDS SUMMARY | 2022-06-18 09:06 | XMS_ITS | Encounter Summary ---
:1970 Author Organization [employer] Address [address] [address] Care Team Providers Name Role Phone Pcp, Pt Declines Primary Care Provider Reason for Visit (Routine) - Incomplete Specialty Diagnoses / Procedures Referred By Contact Refer red To Contact Procedures Chevy Coffman MD US Anesthesia Guided Block [address] [place], [place] [address] Referral ID Status Reason Start Date Expiration Date Visits V isits Requested Authorized [id number] Incomplete 09/24/2021 12/24/2022 1 1 Encounter Details Date Type Department Care Team Description 09/24/2021 Ancillary Procedure Radiology PACS [address] [place] [address] Social History Tobacco Use Types Packs/Day Years Used Date Smoking Tobacco: Never Smokeless Tobacco: Never Sex Assigned at Date Recorded Not on file documented as of this encounter Plan of Treatment Not on filedocumented as of this encounter Procedures Procedure Name Priority Date/Time Associated Comments Diagnosis US ANESTHESIA GUIDED STAT 09/24/2021 8:27 AM R esults for this BLOCK SENIOR TECHNICAL SUPPORT ANALYST procedure are i n the results section. documented in this encounter Results US Anesthesia Guided Block (09/24/2021 8:27 AM SENIOR TECHNICAL SUPPORT ANALYST) Anatomical Region Laterality Modality Ultrasound Specimen (Source) Anatomical Location Collection Method / Collectio n Time Received Time / Laterality Volume Narrative 09/24/2021 8:27 AM SENIOR TECHNICAL SUPPORT ANALYST If an Anesthesia block was performed please see the Anesthesia encounter for documentation. ??This procedure was performed and interpreted by the performing provider. ?? Chevy Coffman MD RAD US documented in this encounter Visit Diagnoses Not on filedocumented in this encounter Care Teams Caddymaster Relationship Specialty Start Date End Date Pcp, Sarkis Ash MD PCP - General 05/05/21 [place], [place] [address] documented as of this encounter
--- OUTSIDE RECORDS SUMMARY | 2022-06-18 09:06 | XMS_ITS | Encounter Summary ---
:1970 Author Organization [facility] Address [address], [place] [address] Care Team Providers Name Role Phone Pcp, Pt Declines Primary Care Provider Reason for Visit Procedure/Equipment (Routine) - Incomplete Specialty Diagnoses / Procedures Referred By Contact Refer red To Contact Procedures Devon Camargo MD FL C Arm Mini [address] [facility] [place], [place] [address] Referral ID Status Reason Start Date Expiration Date Visits V isits Requested Authorized [id number] Incomplete 09/21/2021 12/21/2022 1 1 Encounter Details Date Type Department Care Team Description 09/24/2021 Ancillary Procedure Devon Salmeron [address]Torres Lucero MD Radiology [address] [place] [address] [place] [id number] [phone] Social History Tobacco Use Types Packs/Day Years Used Date Smoking Tobacco: Never Smokeless Tobacco: Never Sex Assigned at Date Recorded Not on file documented as of this encounter Plan of Treatment Not on filedocumented as of this encounter Procedures Procedure Name Priority Date/Time Associated Diagnosis Comme nts FL C ARM MINI Routine 09/24/2021 1:15 PM Results for this NOODLE PRESS OPERATOR procedure are i n the results section . documented in this encounter Results FL C Arm Mini (09/24/2021 1:15 PM NOODLE PRESS OPERATOR) Anatomical Region Laterality Modality Radio Fluoroscopy Specimen (Source) Anatomical Location Collection Method / Collectio n Time Received Time / Laterality Volume Narrative 09/24/2021 4:31 PM NOODLE PRESS OPERATOR These images were obtained during a surg ical procedure. Devon Camargo MD [facility] documented in this encounter Visit Diagnoses Not on filedocumented in this encounter Care Teams Rim Turning Machine Operator Relationship Specialty Start Date End Date Pcp, Sarkis Ash MD PCP - General 05/05/21 [place] [address] documented as of this encounter
--- OUTSIDE RECORDS SUMMARY | 2022-06-18 09:06 | XMS_ITS | Encounter Summary ---
:1970 Author Organization [employer] Address [address], [place] [address] Care Team Providers Name Role Phone Pcp, Pt Declines MD Primary Care Provider Reason for Referral Procedure/Equipment (Routine) - Incomplete Specialty Diagnoses / Procedures Referred By Contact Refer red To Contact Diagnoses Post-traumatic osteoarthritis of left ankle Steve Workman MD Procedures FL Injection Ankle Lt [address] [place], [place] [address] Referral ID Status Reason Start Date Expiration Date Visits V isits Requested Authorized [id number] Incomplete 07/03/2021 10/02/2022 1 1 Encounter Details Date Type Department Care Team Description 07/03/2021 Notes/Orders Specialty Center Steve Workman Post-t raumatic [address] BEULAH Galaviz MD osteoarthritis of left Orthopedics 39[address] [facility] ankle (Primary Dx) [address] [place] [phone] Social History Tobacco Use Types Packs/Day Years [...] 0 out of 10. Steve Workman MD [facility] documented in this encounter Visit Diagnoses Diagnosis Post-traumatic osteoarthritis of left an kle - Primary Post-traumatic osteoarthritis of left an kle documented in this encounter Care Teams Card Fixer Relationship Specialty Start Date End Date PcpSarkis MD PCP - General 05/05/21 [place] [address] documented as of this encounter
--- OUTSIDE RECORDS SUMMARY | 2022-06-18 09:06 | XMS_ITS | Encounter Summary ---
:1970 Author Organization [facility] Address [address] [address] Care Team Providers Name Role Phone Pcp, Pt Declines Primary Care Provider Encounter Details Date Type Department Care Team Description 09/01/2021 Telephone [facility] Devon Rosado MD [address] [facility] [address] [facility] [place], [place] [address] [place], [place] [address] (Wo rk) Social History Tobacco Use Types Packs/Day Years Used Date Smoking Tobacco: Never Smokeless Tobacco: Never Sex Assigned at Date Recorded Not on file documented as of this encounter Nursing Notes Radha Travis - 09/02/2021 7:19 AM CDT Left Ankle CT without Contrast Code: 42741 ICD-10 Code: M19.072 Devon Camargo M.D. [facility] #: [id number] Per Availity, NO PRIOR AUTHORIZATION REQUIRED Transaction ID: [id number] Patient notified. will call with results. Radha Travis - 09/01/2021 3:58 PM CDT Hi there, Looking for PA request Saba Berrios CT left ankle no contrast [employer] [place] Asher Camargo MD Thank you, Radha documented in this encounter Plan of Treatment Not on filedocumented as of this encounter Visit Diagnoses Not on filedocumented in this encounter Care Teams Manager Traffic Relationship Specialty Start Date End Date Pcp, Sarkis Ash MD PCP - General 05/05/21 [place] [address] documented as of this encounter
--- OUTSIDE RECORDS SUMMARY | 2022-06-18 09:06 | XMS_ITS | Encounter Summary ---
:1970 Author Organization [employer] Address [address], [place] [address] Care Team Providers Name Role Phone Pcp, Pt Declines MD Primary Care Provider Reason for Visit Auth/Cert Specialty Diagnoses / Procedures Referred By Contact Refer red To Contact Diagnoses Osteoarthritis of left ankle and foot Procedures ANKLE, DISTAL TIBIA CHEILECTOMY Referral ID Status Reason Start Date Expiration Date Visits Requ ested Visits Authorized [id number] 1 1 Encounter Details Date Type Department Care Team Description 09/24/2021 Anesthesia Event [facility]B SURGERY C TR Chevy Coffman MD [address] [place], [place] [address] [facility] Richmond Kelley APRN, CRNA [address] [place] [address] [place] [address] Anesthesia Record Procedure Summary Procedure Name Responsible Anesthesia Start Anesthesia Stop Anesthesiologist Time Time ANKLE, DISTAL TIBIA Chevy Coffman MD 09/24/21 1144 09/24 1403 CHEILECTOMY (Left: Foot) Events Date Time Event Comment 09/24/2021 0929 1144 An Start 1144 Quick Note Anesthesia start time denotes sedation started by MELTING FURNACE SKIMMER currently o n case; patient continuously monitored to O.R . By MELTING FURNACE SKIMMER 1147 An Start Data 1150 MD/DO Present [...] Electr onically signed by Pati Grullon APRN, MELTING FURNACE SKIMMER 1403 An Stop Care transferred . Name [...] by: Chevy Coffman MD 09/24/2021 3:39 PM ER REGULATOR Anesthesia Procedure Notes - Chevy Coffman MD - 09/24/2021 9:12 AM TESTER REGULATOR Associated Order(s): Peripheral Block Peripheral Block Performed [...] Mask and Sterile gloves Monitoring: Blood pressure, color television console monitor and continuous pulse oximetry Patient Position: Supine [...] Block 2 mg - 09/24/2021 9:07:00 AM ER REGULATOR Anesthesia Procedure Notes - Chevy Coffman MD - 09/24/2021 9:10 AM TESTER REGULATOR Associated Order(s): Peripheral Block Peripheral Block Performed [...] Mask and Sterile gloves Monitoring: Blood pressure, color television console monitor and continuous pulse oximetry Patient Position: Supine [...] Block 2 mg - 09/24/2021 9:03:00 AM ER REGULATOR Anesthesia Preprocedure Evaluation - Chevy Coffman MD [...] benefits and alternatives discussed with: Patient or Watch Inspector agree tothe anesthesia treatment plan and Patient. H&P Reviewed and Patient examined, no change observed IV access Antibiotics per surgery Electronically signed by: Chevy Coffman MD 09/24/2021 8:36 AM ER REGULATOR documented in this encounter Plan of Treatment Not on filedocumented as of this encounter Procedures Procedure Name Priority Date/Time Associated Diagnosis Comme nts PERIPHERAL BLOCK Routine 09/24/2021 9:12 AM Resul ts for this TESTER REGULATOR procedure are i n the results section. PERIPHERAL BLOCK Routine 09/24/2021 9:10 AM Resul ts for this TESTER REGULATOR procedure are i n the results section. documented in this encounter Results PERIPHERAL BLOCK (09/24/2021 9:12 AM TESTER REGULATOR) Narrative EXTERNAL RESULTS - 09/24/2021 9:12 AM [...] EXTERNAL RESULTS PERIPHERAL BLOCK (09/24/2021 9:10 AM TESTER REGULATOR) Narrative EXTERNAL RESULTS - 09/24/2021 9:10 AM Cehvy Chavez MD ? 09/24/2021 ??9:14 AM Peripheral [...] 2 g in Given 09/24/2021 11:44 AM TESTER REGULATOR 2 g dextrose 100 ml IVPB 2 g, Intravenous, Administer over 30 Minutes, ONCE, On Susanna 09/24/21 at 0800, For 1 dose, Infuse within 60 minutes prior to incision; Re-dose 1 gram IV every 4 hours after initial dose until incision closed., Pre-op dexamethasone (DECADRON) injection Given 09/24/2021 12:10 PM TESTER REGULATOR 4 mg Intravenous, Starting on Susanna 09/24/21 at 1210, Until Susanna 09/24/21 at 1403 dexamethasone PF (DECADRON) injection Given 09/24/2021 9:03 AM TESTER REGULATOR 2 mg Regional Nerve Block, Starting on Susanna 09/24/21 at 0903, Until Susanna 09/24/21 at 0903 dexamethasone PF (DECADRON) injection Given 09/24/2021 9:07 AM TESTER REGULATOR 2 mg Regional Nerve Block, Starting on Susanna 09/24/21 at 0907, Until Susanna 09/24/21 at 0907 dexmedetomidine 20 mcg/5 mL injection Given 09/24/2021 12:57 PM TESTER REGULATOR 4 mcg Intravenous, Starting on Susanna 09/24/21 at 1251, Until Susanna 09/24/21 at 1403 Given 09/24/2021 12:51 PM TESTER REGULATOR 4 mcg fentaNYL (SUBLIMAZE) injection Given 09/24/2021 1:04 PM TESTER REGULATOR 25 mcg Intravenous, Starting on Susanna 09/24/21 at 1144, Until Susanna 09/24/21 at 1403 Given 09/24/2021 1:03 PM TESTER REGULATOR 25 mcg Given 09/24/2021 11:44 AM TESTER REGULATOR 50 mcg lactated ringers infusion Started 09/24/2021 1:28 PM TESTER REGULATOR 25 mL/hr, Intravenous, CONTINUOUS, Starting on Susanna 09/24/21 at 0800, Administer on all preop surgery patients, ages 12 and older, unless specified differently in the Protocol for Preop Initiation of IV fluids Order Set., Pre-op Restarted 09/24/2021 11:41 AM TESTER REGULATOR Started 09/24/2021 7:56 AM TESTER REGULATOR 25 mL/hr 25 mL/hr lidocaine PF (XYLOCAINE) 1 % injection Given 09/24/2021 8:58 AM TESTER REGULATOR 2 mL Subcutaneous, Starting on Susanna 09/24/21 at 0858 lidocaine PF (XYLOCAINE) 1 % injection Given 09/24/2021 9:04 AM TESTER REGULATOR 2 mL Subcutaneous, Starting on Susanna 09/24/21 at 0904 midazolam (VERSED) injection Given 09/24/2021 11:52 AM TESTER REGULATOR 1 mg Intravenous, Starting on Susanna 09/24/21 at 1152, Until Susanna 09/24/21 at 1403 ondansetron (ZOFRAN) injection Given 09/24/2021 11:58 AM TESTER REGULATOR 4 mg Intravenous, Starting on Susanna 09/24/21 at 1158, Until Susanna 09/24/21 at 1403 propofol (DIPRIVAN) 10 mg/mL Rate/Dose 09/24/2021 1:17 70 mcg/kg/min 43.26 injection Change PM TESTER REGULATOR mL/hr Intravenous, Starting on Susanna 09/24/21 at 1149, Until Susanna 09/24/21 at 1403 Rate/Dose Change 09/24/2021 1:07 PM TESTER REGULATOR 140 mcg/kg/min 86.52 mL/hr Rate/Dose Change 09/24/2021 12:44 PM TESTER REGULATOR 85 mcg/kg/min 52.53 mL/hr ropivacaine 0.5% (5 mg/mL) (NAROPIN) 5 MG/ML Given 9:03 AM TESTER REGULATOR 15 mL injection Regional Nerve Block, Starting on Susanna 09/24/21 at 0903, Until Susanna 09/24/21 at 0903 ropivacaine 0.5% (5 mg/mL) (NAROPIN) 5 MG/ML Given 9:07 AM TESTER REGULATOR 15 mL injection Regional Nerve Block, Starting on Susanna 09/24/21 at 0907, Until Susanna 09/24/21 at 0907 documented in this encounter Care Teams Quality Coordinator Relationship Specialty Start Date End Date PcpSarkis MD PCP - General 05/05/21 [place] [address] documented as of this encounter
--- OUTSIDE RECORDS SUMMARY | 2022-06-18 09:06 | XMS_ITS | Encounter Summary ---
:1970 Author Organization [employer] Address [address], [place] [address] Care Team Providers Name Role Phone Pcp, Pt Declines MD Primary Care Provider Reason for Referral Procedure/Equipment (Routine) - Incomplete Specialty Diagnoses / Procedures Referred By Contact Refer red To Contact Diagnoses Osteoarthritis of left ankle and foot Devon Camargo MD Procedures Airselect Elite/Standard Tall Boot([id number]) [address] [facility] [address] [place], [place] [address] Referral ID Status Reason Start Date Expiration Date Visits V isits Requested Authorized [id number] Incomplete 10/05/2021 01/04/[address] [facility] Therapies (Routine) - Closed Specialty Diagnoses / Procedures Referred By Contact Refer red To Contact Diagnoses Chronic pain of left ankle Devon Camargo MD [address] [facility] [address] [place], [place] [address] Referral ID Status Reason Start Date Expiration Date Visits Requ ested Visits Authorized [id number] Closed 10/05/2021 10/05/2022 1 1 Scheduling Instructions [...] ask your clinician's staff to assist you. [facility] Procedure/Equipment (Routine) - Incomplete Specialty Diagnoses / Procedures Referred By Contact Refer red To Contact Diagnoses Chronic pain of left ankle Devon Camargo MD Procedures XR Ankle Lt 3 Views [address] [facility] [address] [place] [address] Referral ID Status Reason Start Date Expiration Date Visits V isits Requested Authorized [id number] Incomplete 10/05/2021 01/04/[address] [facility] Reason for Visit Reason Comments Follow-up left ankle Encounter Details Date Type Department Care Team Description 10/05/2021 Office Visit Devon Keene pain of left ankle (Primary Dx); Orthopaedics & Sports MD Jazmine Osteoarthritis of left ankle and foot Medicine [address] [facility] [address] [place], [place] [address] [phone] Social History Tobacco Use Types Packs/Day Years [...] Camargo MD Orthopedic Foot and Ankle Surgery [facility] documented in this encounter Plan of Treatment Scheduled Referrals Name Type Priority Associated Diagnoses Order S chedule Physical Therapy Referral Routine Chronic pain of left ank le Ordered: 10/05/2021 documented as of this encounter Results XR Ankle Lt 3 Views (10/05/2021 11:50 AM FOREST PATROLMAN) Anatomical Region Laterality Modality Lower Extremity, Ankle, Foot & Ankle Dig ital Radiography Specimen (Source) Anatomical Collection Method Collection Time Re ceived Time Location / / Volume Laterality 10/05/2021 11:43 AM FOREST PATROLMAN Impressions 10/05/2021 11:53 AM FOREST PATROLMAN COMPARISON: ??CT 09/03/2021 FINDINGS: ??3 views obtained [...] ankle documented in this encounter Care Teams Resp Ther Relationship Specialty Start Date End Date Pcp, Pt MD Mihir PCP - General 05/05/21 [place] [address] documented as of this encounter
--- OUTSIDE RECORDS SUMMARY | 2022-06-18 09:06 | XMS_ITS | Encounter Summary ---
:1970 Author Organization [employer] Address [address] [address] Care Team Providers Name Role Phone Pcp, Pt Declines Primary Care Provider Reason for Visit Reason Comments QUESTIONS, GENERAL Encounter Details Date Type Department Care Team Description 10/05/2021 Telephone [facility] Devon Rosado, QUESTIONS, GENERAL [address] [facility] [place], [place] [address] [facility] [phone] [place] [address] (Wo rk) Social History Tobacco Use Types Packs/Day Years Used Date Smoking Tobacco: Never Smokeless Tobacco: Never Sex Assigned at Date Recorded Not on file documented as of this encounter Nursing Notes Tamra Russell RN - 10/06/2021 12:53 PM CST RTW form was handwritten by Dr. Dee. Created letter in chart with the information provided in note from Dr. Camargo Released letter via my chart to pt as requested SORTER Ashley Gerard - 10/05/2021 4:44 PM CST Has the patient recently had surgery or an injury? No How may we help you today? Patient seen today for left ankle injury and forgot to ask for letter forher employer for work restrictions Describe your symptoms/concerns: n/a When did the issue start: n/a Have you been seen for this recently?: N/a [Deli/Bakery Associate/Appt Center: If yes, please include date and provider.] Is it okay to leave detailed message on your voicemail? Yes [Deli/Bakery Associate/Appt Center: If this call is after 3 p.m., communicate to patient: If we are not able to get back to you by the end of the day and your symptoms worsen please contact the Careline] SORTER documented in this encounter Plan of Treatment Not on filedocumented as of this encounter Visit Diagnoses Not on filedocumented in this encounter Care Teams Buttonholer Relationship Specialty Start Date End Date Pcp, Sarkis Ash MD PCP - General 05/05/21 [place] [address] documented as of this encounter
--- OUTSIDE RECORDS SUMMARY | 2022-06-18 09:06 | XMS_ITS | Encounter Summary ---
:1970 [facility] Address [address] [address] Care Team Providers Name Role Phone Pcp, Pt Declines Primary Care Provider Reason for Referral Consult/Transfer Care (Routine) - New Request Specialty Diagnoses / Procedures Referred By Contact Refer red To Contact Diagnoses [place] [address] [place] [address] [phone] Referral ID Status Reason Start Date Expiration Date Visits V isits Requested Authorized [id number] New Request 07/30/2021 10/29/2022 1 1 Scheduling Instructions Your provider has recommended an appoint ment with [facility]. You may call [phone] to schedule your appoi ntment. We suggest you call your health insurance company about your coverage an d benefits for this appointment. Reason for Visit Reason Comments ANKLE PAIN L ankle pn, H/O ORIF Encounter Details Date Type Department Care Team Description 07/30/2021 Office Visit [facility] 393 Steve Workman rthritis of left [facility] MD Guillaume ankle (Primary Dx) [address] [place] [phone] (Wo rk) Social History Tobacco Use Types [...] for Steve Workman MD by Alexandra [place], certified ophthalmic medical technician. I, Steve Workman MD, have personally reviewed [...] foot documented in this encounter Care Teams Financial Engineer Relationship Specialty Start Date End Date Pcp, Pt Declines, MD PCP - General 05/05/21 [place], [place] [address] documented as of this encounter
--- OUTSIDE RECORDS SUMMARY | 2022-06-18 09:07 | XMS_ITS | Encounter Summary ---
:1970 Author Organization [employer] Address [address], [place] [address] Care Team Providers Name Role Phone Pcp, Pt Declines Primary Care Provider Reason for Visit Reason Comments ANKLE PAIN L ankle pain H/O ORIF Encounter Details Date Type Department Care Team Description 06/18/2021 Office Visit [facility] 393 Steve Workman rthritis of left [facility] MD Guillaume ankle (Primary Dx) [address] [phone] (Wo rk) Social History Tobacco Use Types [...] foot documented in this encounter Care Teams Automobile Damage Appraiser Relationship Specialty Start Date End Date PcpSarkis MD PCP - General 05/05/21 [place] [address] documented as of this encounter
--- OUTSIDE RECORDS SUMMARY | 2022-06-18 09:07 | XMS_ITS | Encounter Summary ---
:1970 Author Organization [facility] Address [address] [address] Care Team Providers Name Role Phone Unavailable Primary Care Provider Unavailable Reason for Visit Procedure/Equipment (Routine) - Incomplete Specialty Diagnoses / Procedures Referred By Contact Refer red To Contact Procedures Provider, Foreign Images Foreign Image(S) XR Ankle Lt 39[address] [place] [address] Referral ID Status Reason Start Date Expiration Date Visits V isits Requested Authorized [id number] Incomplete 05/05/2021 08/04/2022 1 1 Encounter Details Date Type Department Care Team Description 12/08/2020 Ancillary Procedure [facility] PACS Provider, Foreign [address] [place] [address] 39[address] [place] [address] Social History Tobacco Use Types Packs/Day Years Used Date Smoking Tobacco: Never Assessed Sex Assigned at Date Recorded Not on file documented as of this encounter Plan of Treatment Not on filedocumented as of this encounter Procedures Procedure Name Priority Date/Time Associated Diagnosis Comme nts FOREIGN IMAGE(S) XR Routine 12/08/2020 4:35 PM Re sults for this ANKLE LT CHEF UNDER procedure are i n the results section. documented in this encounter Results Foreign Image(S) XR Ankle Lt (12/08/2020 4:35 PM CHEF UNDER) Specimen (Source) Anatomical Location Collection Method / [...]
--- OUTSIDE RECORDS SUMMARY | 2022-06-18 09:07 | XMS_ITS | Encounter Summary ---
:1970 Author Organization [employer] Address [address] [address] Care Team Providers Name Role Phone Pcp, Pt Declines Primary Care Provider Reason for Visit Reason Comments Ankle Problem H/O ORIF L ankle fx Encounter Details Date Type Department Care Team Description 05/05/2021 Office Visit [facility] Steve Workman Arthri tis of left ankle (Primary Dx); JOCELYN Galaviz MD Chronic pain of left ankle [address] [phone] [place], [place] [address] (Wo rk) Social History Tobacco Use Types Packs/Day Years Used Date Smoking Tobacco: Never Smokeless Tobacco: Never Sex Assigned at Date Recorded Not on file documented as of this encounter Progress Notes Steve Workman MD - 05/05/2021 11:00 AM CDT Chief [...] previously consulted with an orthopedic surgeon at [facility], and he told her that she [...] ankle documented in this encounter Care Teams Child Care Director Relationship Specialty Start Date End Date Pcp, Sarkis Ash MD PCP - General 05/05/21 [place] [address] documented as of this encounter
--- OUTSIDE RECORDS SUMMARY | 2022-06-18 09:07 | XMS_ITS | Encounter Summary ---
:1970 Author Organization [facility] Address [address], [place] [address] Care Team Providers Name Role Phone Unavailable Primary Care Provider Unavailable Reason for Visit Procedure/Equipment (Routine) - Incomplete Specialty Diagnoses / Procedures Referred By Contact Refer red To Contact Procedures Provider, Foreign Images Foreign Image(S) XR Ankle Lt [address] [place] [address] Referral ID Status Reason Start Date Expiration Date Visits V isits Requested Authorized [id number] Incomplete 05/05/2021 08/04/2022 1 1 Encounter Details Date Type Department Care Team Description 04/09/2021 Ancillary Procedure [facility] PACS Provider, Foreign [address] [place] [address] 39[address] [place] [address] Social History Tobacco Use Types Packs/Day Years [...]
--- OUTSIDE RECORDS SUMMARY | 2022-06-18 09:07 | XMS_ITS | Encounter Summary ---
:1970 Author Organization [facility] Address [address], [place] [address] Care Team Providers Name Role Phone Pcp, Pt Declines Primary Care Provider Reason for Visit Reason Comments Medication Questions Encounter Details Date Type Department Care Team Description 05/05/2021 Telephone [facility] Steve Ochoa, Medication Questions [facility] [facility] [place] [place] [address] 5641 [facility] [phone] [place] [address] (Wo rk) Social History Tobacco [...] Have you been seen for this recently?: [Technical Assistant/Appt Center: If yes, please include date and provider.] Is it okay to leave detailed message on your voicemail? Yes [Technical Assistant/Appt Center: If this call is after 3 p.m., communicate to patient: If we are not able to get back to you by the end of the day and your symptoms worsen please contact the Careline] documented in this encounter Plan of Treatment Not on filedocumented as of this encounter Visit Diagnoses Not on filedocumented in this encounter Care Teams Physical Sciences Professor Relationship Specialty Start Date End Date PcpSarkis MD PCP - General 05/05/21 [place] [address] documented as of this encounter
--- NOTE | 2022-06-18 10:00 | CRLHL7_ITS ---
For Patients: As a result of the Century Cures Act, medical imaging exams and procedure reports are released immediately into your electronic medical record. You may view this report before your referring provider. If you have questions, please contact your health care provider. Indication: RT UPPER QUADRANT PAIN Technique: Postcontrast CT abdomen and pelvis. 89 cc Isovue 370 intravenous contrast Please note that all CT scans at this facility use dose modulation, iterative reconstruction, and/or weight-based dosing when appropriate to reduce radiation dose to as low as reasonably achievable. Comparison: None Findings: Lung bases are normally aerated. 1 centimeters simple cyst anterior segment right hepatic lobe. Subcentimeter cyst within the left hepatic lobe. Postop changes cholecystectomy. No biliary obstruction. Normal common bile duct. No evidence of calcified stone in the common bile duct. No biliary obstruction. The pancreatic parenchyma is within normal limits. Normal spleen. Adrenal glands are unremarkable. No solid renal mass or stone. No hydronephrosis or perinephric stranding. Subcentimeter renal cortical cysts bilaterally. Minimal vascular calcifications. No retroperitoneal or mesenteric adenopathy. The bladder is normal. The appendix is absent. No pelvic soft tissue mass. No pelvic or inguinal adenopathy. Mild sigmoid diverticulosis. No diverticulitis. No bowel obstruction, free air, free fluid or abscess. 2.7 cm umbilical hernia containing fat. No fracture. Mild facet degeneration. Impression: Status post cholecystectomy. No evidence of choledocholithiasis or biliary obstruction. No postoperative complication. Mild sigmoid diverticulosis. No diverticulitis. 2.7 cm umbilical hernia containing fat. Please note that all CT scans at this facility use dose modulation, iterative reconstruction, and/or weight-based dosing when appropriate to reduce radiation dose to as low as reasonably achievable. Dictated by Girma Camarena MD @ 06/18/2022 10:38:27 AM (Electronically Signed)
== END 2022-06-18 09:04 | disposition home or self-care (01) ==
LOC: CT 09:04
PROVIDERS: PCP Family Medicine; Visit Provider Family Medicine
DX: R10.11 Right upper quadrant pain (principal); K57.30 Diverticulosis of large intestine without perforation or abscess without bleeding; K42.9 Umbilical hernia without obstruction or gangrene
CPT/HCPCS: 74177; Q9967

== ENCOUNTER 2022-08-16 11:13 | Outpatient (CLI) | payer BC, SELFPAY ==
--- OUTSIDE RECORDS SUMMARY | 2022-08-16 11:15 | XMS_ITS | Clinical Summary ---
:1970 Author Organization [employer] Address [address], [place] [address] Care Team Providers Name Role Phone Pcp, [...] for each transition of care or referral. [employer] Allergies Active Allergy Reactions Severity Noted Date [...] Added automatically from request for padma oscar [id number] Immunizations Name Administration Dates Next Due Pfizer (Comirnaty) COVID-19, 12+ Yrs Purple Top 07/02/2021, 06/10/2021 Social History Tobacco Use Types Packs/Day Years Used Date Smoking Tobacco: Never Smokeless Tobacco: Never Sex Assigned at Date Recorded Not on file Last Filed Vital Signs Vital Sign Reading Time Taken Comments Blood Pressure 108/70 09/24/2021 2:30 PM CORONARY CLINICAL SPECIALIST Pulse 71 09/24/2021 2:30 PM CORONARY CLINICAL SPECIALIST Temperature 36.6 ??C (97.9 ??F) 09/24/2021 2:02 PM CORONARY CLINICAL SPECIALIST Respiratory Rate 16 09/24/2021 2:30 PM CORONARY CLINICAL SPECIALIST Oxygen Saturation 98% 09/24/2021 2:30 PM CORONARY CLINICAL SPECIALIST Inhaled Oxygen Concentration - - Weight 103 kg (227 lb) 09/24/2021 7:45 AM CORONARY CLINICAL SPECIALIST Height 170.2 cm (5' 7) 09/24/2021 7:45 AM CORONARY CLINICAL SPECIALIST Body Mass Index 35.55 09/24/2021 7:45 AM CORONARY CLINICAL SPECIALIST Plan of Treatment Health Maintenance Due Date Last Done Comments Cervical Cancer Screening Due 1970 Colon Cancer Screening Plan 1970 Due Hep C Screening (Preventive 1971 Services) HepB (1) 1970 Mammogram 1971 HIV Screening (Preventive 1987 Services) Adult Preventive Visit 1989 Cholesterol 2016 COVID-19 Vaccine (3 - Booster 08/27/2021 07/02/2021, for Pfizer series) 06/10/2021 Zoster/Shingles (1 [...] Dates Phone Addre ss Type Group [facility] [id number] 2021-Present [address] [address] [place] [address] Saba Berrios Personal/Family Self [phone] [place] [id number] Advance Directives Latest Code Status on File Code Status Date Activated Date Inactivated Comments Full Code 09/24/2021 1:43 PM 09/24/2021 4:49 PM Care Teams Hospital Security Officer Relationship Specialty Start Date End Date Sarkis Romero MD PCP - General 05/05/21 [place] [address]
--- OUTSIDE RECORDS SUMMARY | 2022-08-16 11:15 | XMS_ITS | Encounter Summary ---
:1970 Author Organization [employer] Address [address] [place] [address] Care Team Providers Name Role Phone Pcp, Pt Declines Primary Care Provider Reason for Referral (Routine) - New Request Specialty Diagnoses / Procedures Referred By Contact Refer red To Contact Diagnoses Aftercare following surgery of the musculoskeletal system Devon Camargo MD Procedures Triamcinolone Acet Inj Nos: (per 10 mg) [address] [facility] [place], [place] [address] Referral ID Status Reason Start Date Expiration Date Visits V isits Requested Authorized [id number] New Request 12/14/2021 03/15/2023 1 1 TABLE LOADER Reason for Visit Reason Comments Post Op Exam Left ankle Encounter Details Date Type Department Care Team Description 12/14/2021 Office Visit [facility] Orthopaedics & Sports Devon Lucero MD surgery of the Medicine [address] [facility] musculoskeletal system [address] [place], [place] (Primary Dx) [place] [phone] Social History Tobacco Use Types Packs/Day Years [...] Camargo MD Orthopedic Foot and Ankle Surgery TABLE LOADER documented in this encounter Plan of Treatment Not on filedocumented as of this encounter Visit Diagnoses Diagnosis [facility]care [facility] - Primary Aftercare following [facility] documented in this encounter Care Teams Hardening Machine Operator Relationship Specialty Start Date End Date Pcp, Sarkis Ash MD PCP - General 05/05/21 [place] [address] documented as of this encounter
--- OUTSIDE RECORDS SUMMARY | 2022-08-16 11:15 | XMS_ITS | Encounter Summary ---
:1970 Author Organization [facility] Address [address], [place] [address] Care Team Providers Name Role Phone PcpSarkis MD Primary Care Provider Encounter Details Date Type Department Care Team Description 03/03/2022 Notes/Orders [facility] Devon Camargo MD [place] [address] [place] [address] 8100 [place] [address] [place], [place] [address] [phone] Social History Tobacco Use Types Packs/Day Years Used Date Smoking Tobacco: Never Smokeless Tobacco: Never Sex Assigned at Date Recorded Not on file documented as of this encounter Plan of Treatment Not on filedocumented as of this encounter Visit Diagnoses Not on filedocumented in this encounter Care Teams President Practicing Urologist Relationship Specialty Start Date End Date Sarkis Romero MD PCP - General 05/05/21 [place], [place] [address] documented as of this encounter
--- OUTSIDE RECORDS SUMMARY | 2022-08-16 11:15 | XMS_ITS | Encounter Summary ---
:1970 Author Organization [employer] Address [address] [address] Care Team Providers Name Role Phone Pcp, Pt Declines Primary Care Provider Reason for Visit Reason Comments Post Op Exam left ankle Encounter Details Date Type Department Care Team Description 11/09/2021 Office Visit BEULAH Camargo Osteoarthrit is of left ankle and foot (Primary Dx); Orthopaedics & Sports Devon Lucero MD Aftercare following surgery of the [facility]; Medicine [address] [place] [address] Arthritis of left ankle [address] [place] [phone] Social History Tobacco Use Types Packs/Day Years [...] Camargo MD Orthopedic Foot and Ankle Surgery T P[place] documented in this encounter Plan of Treatment Not on filedocumented as of this encounter Visit Diagnoses Diagnosis Osteoarthritis of left ankle and foot - Primary Aftercare following surgery of the [facility] Arthritis of left ankle Unspecified arthropathy, ankle and foot documented in this encounter Care Teams Methane Gas Collection System Operator Relationship Specialty Start Date End Date Pcp, Sarkis Ash MD PCP - General 05/05/21 [place] [address] documented as of this encounter
--- OUTSIDE RECORDS SUMMARY | 2022-08-16 11:15 | XMS_ITS | Clinical Summary ---
:1970 Author Organization [facility] [employer] [facility] Address [place] [address] Care Team Providers Name Role Phone Pcp, No Primary Care Provider Unavailable Allergies Active Allergy Reactions Severity Noted Date Comments Adhesive Rash 09/14/2010 Medications Medication Sig Dispensed Refills Start Date End Date Status SUMAtriptan (IMITREX) Take 1 tablet by 9 tablet 5 07/25/2015 Active 100 mg mouth every 2 tabletIndications: hours if needed Migraine without aura for Migraine. and without status Maximum is 200 mg migrainosus, not daily. intractable codeine-guaiFENesin Take 5 mL by mouth 180 mL 0 10/29/2016 Active (CHERATUSSIN AC) every 4 hours if 10-100 mg/5 mL needed for Cough. liquidIndications: Causes Cough drowsiness.Max dose 60 mL per 24 hrs. Active Problems Problem Noted Date Cystocele, midline 08/25/2009 Other joint derangement, not elsewhere classified, low er leg 11/30/2007 Migraine, unspecified, without mention of intractable migraine without 09/20/2006 mention of status migrainosus Temporomandibular joint disorders, unspecified 006 Tension headache 09/20/2006 Immunizations Name Administration Dates Next Due Tdap 02/07/2010, 03/09/2006 Family History Medical History Relation Name Comments Good Health Father Heart Disease Mother Thyroid Disease Mother Relation Name Status Comments Brother 1 Alive Brother 2 Alive Brother 3 Alive Brother 4 Alive Father Alive Mother Alive Sister Alive Social History Tobacco Use Types Packs/Day Years Used Date Never Smoker Smokeless Tobacco: Never Used Alcohol Use Standard Drinks/Week Comments Yes 1.7 (1 standard drink = 0.6 oz pure alco hol) Rare Sex Assigned at Date Recorded Not on file Obstetrics History Para Term AB IAB SAB Ectopic Multiple Living Live Births 4 4 Date Outcome GA Total Labor/2nd/3rd Weight Sex Delivery Anes PTL Sia A 1 A5 Name Clin Labor Last Filed Vital Signs Vital Sign Reading Time Taken Comments Blood Pressure 110/64 10/29/2016 2:19 PM SECURITY CONTROL CENTER OPERATOR Pulse 72 10/29/2016 2:19 PM SECURITY CONTROL CENTER OPERATOR Temperature 36.5 ??C (97.7 ??F) 10/29/2016 2:19 PM SECURITY CONTROL CENTER OPERATOR Respiratory Rate 16 07/25/2015 9:58 AM CDT Oxygen Saturation 99% 12/17/2012 6:30 PM SECURITY CONTROL CENTER OPERATOR Inhaled Oxygen Concentration - - Weight 94.8 kg (209 lb) 10/29/2016 2:19 PM SECURITY CONTROL CENTER OPERATOR Height 170.2 cm (5' 7) 08/11/2016 10:29 AM CDT Body Mass Index 32.73 08/11/2016 10:29 AM CDT Plan of Treatment Health Maintenance Due Date Last Done Comments COVID-19 vaccine series (#1) 06/12/1972 Hepatitis C screening for age 0212/13/1989 18-79 Pap test for age 21-65 11/22/2011 11/22/2008, 03/09/2006, 02/12/2005, Additional history exists Colonoscopy through age 75 2016 Lipids for age 45-75 2016 11/22/2008 Mammogram for age 45-75 2016 BMI (ht and wt on same day) for 08/11/2017 08/11/2016 age 18+ Depression screening for age 12+ 08/11/2017 08/11/2016 Tetanus booster 02/08/2020 02/07/2010, 03/09/2006 Zoster (shingles) series for age 0212/13/2021 50+ (1 of 2) Influenza for age 50-64 07/08/2022 Tdap Completed 02/07/2010, 03/09/2006 Results Not on filefrom Last 3 Months Insurance Payer Benefit Plan / Subscriber ID Effective Dates Phone Addre ss Type Group WC WORKERS WC WORKERS COMP [id number] 2012-[place] [address] [id number] [place] [address] WC WORKERS WC ERIN xx #[id number] 2020-[place] [address] [id number] [place] [address] BLUE CROSS BLUE CROSS OF [id number] 2008-Misbah BECKMAN [id number] [facility] [place] [address] HARPER BERRIOS Workers Comp Self 1970 [address] [facility] [place] [address] HARPER BERRIOS Workers Comp Self 1970 [id number] [phone] Jesus [place] (Work) [phone] Advance Directives Latest Code Status on File Code Status Date Activated Date Inactivated Comments Full Code 06/20/2006 8:27 AM 06/22/2006 6:08 AM Care Teams Major Donor Coordinator Relationship Specialty Start Date End Date Pcp, No PCP - General 12/18/15 .
--- OUTSIDE RECORDS SUMMARY | 2022-08-16 11:16 | XMS_ITS | Encounter Summary ---
:1970 Author Organization [facility] Address [address], [place] [address] Care Team Providers Name Role Phone PcpSarkis MD Primary Care Provider Encounter Details Date Type Department Care Team Description 09/17/2021 Notes/Orders [facility] Devon Camargo MD [place] [address] [place] [address] 8100 [place] [address] [place], [place] [address] [phone] Social History Tobacco Use Types Packs/Day Years Used Date Smoking Tobacco: Never Smokeless Tobacco: Never Sex Assigned at Date Recorded Not on file documented as of this encounter Plan of Treatment Not on filedocumented as of this encounter Visit Diagnoses Not on filedocumented in this encounter Care Teams Quantitative Analyst Developer Relationship Specialty Start Date End Date Sarkis Romero MD PCP - General 05/05/21 [place], [place] [address] documented as of this encounter
--- OUTSIDE RECORDS SUMMARY | 2022-08-16 11:16 | XMS_ITS | Encounter Summary ---
:1970 Author Organization [employer] Address [address], [place] [address] Care Team Providers Name Role Phone Pcp, Pt Declines Primary Care Provider Reason for Visit Reason Comments Ankle Problem H/O ORIF L ankle fx Encounter Details Date Type Department Care Team Description 05/05/2021 Office Visit [facility] Steve Workman Arthri tis of left ankle (Primary Dx); JOCELYN Galaviz MD Chronic pain of left ankle [address] [phone] [place], [place] [address] (Wo rk) Social History Tobacco Use Types [...] previously consulted with an orthopedic surgeon at [facility], and he told her [...] ankle documented in this encounter Care Teams Engineering Lab Technician Relationship Specialty Start Date End Date Pcp, Sarkis Ash MD PCP - General 05/05/21 [place] [address] documented as of this encounter
--- OUTSIDE RECORDS SUMMARY | 2022-08-16 11:16 | XMS_ITS | Encounter Summary ---
:1970 Author [facility] Address [address], [place] [address] Care Team Providers Name Role Phone Pcp, Pt Declines MD Primary Care Provider Reason for Visit Reason Comments Surgery, After Care How long to use crutches Incisional Questions Encounter Details Date Type Department Care Team Description 10/22/2021 Telephone [facility] Devon Sargent y, After Care Orthopaedics & Sports MD Jazmine (How long to use Medicine [address] [facility] [address] finch); Incisional [address] [place], [place] Questions [place], [place] [address] [phone] Social History Tobacco Use Types Packs/Day Years [...] Gauze over the incision until fully healed. ER WINDER Barb Parnell RN - 10/22/2021 12:35 PM CST Action: Input needed Next Step: Route to ORTHO PN TRIAGE [24864] Specific Request(s): 1. Please advise if anything [...] Pt verbalized understanding to all advice given. ER WINDER Corinne Ribeiro - 10/22/2021 12:29 PM CST Has the patient recently had surgery or an injury? Yes. Date of Surgery: September 24, 2021 Type of Surgery: ANKLE, DISTAL TIBIA CHEILECTOMY (Left) How may we help you today? Pt is calling to ask how long she should continue to use her crutches. Please call the pt at [phone] to discuss Describe your symptoms/concerns: L ankle When did the issue start: Surgery Have you been seen for this recently?: 10/05/21 Dr Camargo [Electrical Controls Technician/Appt Center: If yes, please include date and provider.] Is it okay to leave detailed message on your voicemail? Yes [Electrical Controls Technician/Appt Center: If this call is after 3 p.m., communicate to patient: If we are not able to get back to you by the end of the day and your symptoms worsen please contact the Careline] ER WINDER documented in this encounter Plan of Treatment Not on filedocumented as of this encounter Visit Diagnoses Not on filedocumented in this encounter Care Teams Rooming House Keeper Relationship Specialty Start Date End Date Pcp, Sarkis Ash MD PCP - General 05/05/21 [place] [address] documented as of this encounter
--- OUTSIDE RECORDS SUMMARY | 2022-08-16 11:16 | XMS_ITS | Encounter Summary ---
:1970 Author Organization [facility] Address [address], [place] [address] Care Team Providers Name Role Phone Unavailable Primary Care Provider Unavailable Reason for Visit Procedure/Equipment (Routine) - Incomplete Specialty Diagnoses / Procedures Referred By Contact Refer red To Contact Procedures Provider, Foreign Images Foreign Image(S) XR Ankle Lt [address] [place] [address] Referral ID Status Reason Start Date Expiration Date Visits V isits Requested Authorized [id number] Incomplete 05/05/2021 08/04/2022 1 1 Encounter Details Date Type Department Care Team Description 04/09/2021 Ancillary Procedure [facility] Radiology PACS Provider, Foreign [address] [place] [address] [address] [place] [address] Social History Tobacco Use Types Packs/Day Years [...]
--- OUTSIDE RECORDS SUMMARY | 2022-08-16 11:16 | XMS_ITS | Encounter Summary ---
:1970 Author Organization [employer] Address [address] [place] [address] Care Team Providers Name Role Phone Pcp, Pt Declines Primary Care Provider Reason for Visit Reason Comments QUESTIONS, GENERAL Encounter Details Date Type Department Care Team Description 10/05/2021 Telephone [facility] Devon Rosado, QUESTIONS, GENERAL [address] [facility] [place], [place] [address] [address] [facility] [phone] [place] [address] (Wo rk) Social History Tobacco Use Types [...] via my chart to pt as requested REGISTRY SALES CONSULTANT Ashley Gerard - 10/05/2021 4:44 PM CST Has the patient recently had surgery or an injury? No How may we help you today? Patient seen today for left ankle injury and forgot to ask for letter forher employer for work restrictions Describe your symptoms/concerns: n/a When did the issue start: n/a Have you been seen for this recently?: N/a [Nurse Orthopaedic/Appt Center: If yes, please include date and provider.] Is it okay to leave detailed message on your voicemail? Yes [Nurse Orthopaedic/Appt Center: If this call is after 3 p.m., communicate to patient: If we are not able to get back to you by the end of the day and your symptoms worsen please contact the Careline] REGISTRY SALES CONSULTANT documented in this encounter Plan of Treatment Not on filedocumented as of this encounter Visit Diagnoses Not on filedocumented in this encounter Care Teams Convict Guard Relationship Specialty Start Date End Date Pcp, Sarkis Ash MD PCP - General 05/05/21 [place] [address] documented as of this encounter
--- OUTSIDE RECORDS SUMMARY | 2022-08-16 11:16 | XMS_ITS | Encounter Summary ---
:1970 Author [facility] Address [address] [address] Care Team Providers Name Role Phone Pcp, Pt Declines Primary Care Provider Reason for Visit Reason Comments Medication Questions Encounter Details Date Type Department Care Team Description 05/05/2021 Telephone [facility] Steve Ochoa, Medication Questions [address] [facility] [place], [place] [address] [address] [facility] [phone] [place] [address] (Wo rk) Social History Tobacco [...] we can re- evaluate at that time. Jakci Murguia - 05/05/2021 1:48 PM CDT Has the patient recently had surgery or an injury? No How may we help you today? Pharmacy has a question regarding the Tramadol that was ordered today for1 Tab every 6 hours. Describe your symptoms/concerns: Is this for acute or chronic pain? When did the issue start: Have you been seen for this recently?: [Cad Application Support Specialist/Appt Center: If yes, please include date and provider.] Is it okay to leave detailed message on your voicemail? Yes [Cad Application Support Specialist/Appt Center: If this call is after 3 p.m., communicate to patient: If we are not able to get back to you by the end of the day and your symptoms worsen please contact the Careline] documented in this encounter Plan of Treatment Not on filedocumented as of this encounter Visit Diagnoses Not on filedocumented in this encounter Care Teams Contact Clerk Relationship Specialty Start Date End Date PcpSarkis MD PCP - General 05/05/21 [place] [address] documented as of this encounter
--- OUTSIDE RECORDS SUMMARY | 2022-08-16 11:16 | XMS_ITS | Encounter Summary ---
:1970 Author Organization [facility] Address [address], [place] [address] Care Team Providers Name Role Phone Unavailable Primary Care Provider Unavailable Reason for Visit Procedure/Equipment (Routine) - Incomplete Specialty Diagnoses / Procedures Referred By Contact Refer red To Contact Procedures Provider, Foreign Images Foreign Image(S) XR Ankle Lt [address] [place] [address] Referral ID Status Reason Start Date Expiration Date Visits V isits Requested Authorized [id number] Incomplete 05/05/2021 08/04/2022 1 1 Encounter Details Date Type Department Care Team Description 12/08/2020 Ancillary Procedure [facility] Radiology PACS Provider, Foreign [address] [place] [address] [address] [place] [address] Social History Tobacco Use Types Packs/Day Years Used Date Smoking Tobacco: Never Assessed Sex Assigned at Date Recorded Not on file documented as of this encounter Plan of Treatment Not on filedocumented as of this encounter Procedures Procedure Name Priority Date/Time Associated Diagnosis Comme nts FOREIGN IMAGE(S) XR Routine 12/08/2020 4:35 PM Re sults for this ANKLE LT DINING ROOM HOSTESS procedure are i n the results section. documented in this encounter Results Foreign Image(S) XR Ankle Lt (12/08/2020 4:35 PM DINING ROOM HOSTESS) Specimen (Source) Anatomical Location Collection Method / [...]
--- OUTSIDE RECORDS SUMMARY | 2022-08-16 11:16 | XMS_ITS | Encounter Summary ---
:1970 Author Organization [facility] Address [address], [place] [address] Care Team Providers Name Role Phone Pcp, Pt Declines Primary Care Provider Reason for Referral Consult/Transfer Care (Routine) - New Request Specialty Diagnoses / Procedures Referred By Contact Refer red To Contact Diagnoses [place] [address] [place] [address] [phone] Referral ID Status Reason Start Date Expiration Date Visits V isits Requested Authorized [id number] New Request 07/30/2021 10/29/2022 1 1 Scheduling Instructions Your provider has recommended an appoint ment with [facility]. You may call [phone] to schedule your appoi ntment. We suggest you call your health insurance company about your coverage an d benefits for this appointment. Reason for Visit Reason Comments ANKLE PAIN L ankle pn, H/O ORIF Encounter Details Date Type Department Care Team Description 07/30/2021 Office Visit Specialty Center [address] Steve Workman rthritis of left [facility] MD Guillaume ankle (Primary Dx) [address] [place] [phone] (Wo rk) Social History Tobacco Use Types [...] Steve Workman MD by Alexandra Summers, medical lab tech instructor. I, Steve Workman MD, have personally reviewed [...] foot documented in this encounter Care Teams Airborne Mission Systems Superintendent Relationship Specialty Start Date End Date Pcp, Pt Declines, MD PCP - General 05/05/21 [place], [place] [address] documented as of this encounter
--- OUTSIDE RECORDS SUMMARY | 2022-08-16 11:16 | XMS_ITS | Encounter Summary ---
:1970 Author Organization [employer] Address [address], [place] [address] Care Team Providers Name Role Phone Pcp, Pt Declines Primary Care Provider Reason for Visit Reason Comments APPOINTMENT REQUEST WORK IN Encounter Details Date Type Department Care Team Description 07/17/2021 Telephone Specialty Center [address] Steve Workman , APPOINTMENT REQUEST [facility] (WORK IN) [address] [place] [phone] (Wo rk) Social History Tobacco Use Types [...] be she is okay to travel to [facility]. Please call to advise. When did the issue start: NA Have you been seen for this recently?: NA [Pv Design Engineer/Appt Center: If yes, please include date and provider.] Is it okay to leave detailed message on your voicemail? YES [Pv Design Engineer/Appt Center: If this call is after 3 p.m., communicate to patient: If we are not able to get back to you by the end of the day and your symptoms worsen please contact the Careline] documented in this encounter Plan of Treatment Not on filedocumented as of this encounter Visit Diagnoses Not on filedocumented in this encounter Care Teams Plate Mill Hand Relationship Specialty Start Date End Date Pcp, Sarkis Ash MD PCP - General 05/05/21 [place] [address] documented as of this encounter
--- OUTSIDE RECORDS SUMMARY | 2022-08-16 11:16 | XMS_ITS | Encounter Summary ---
:1970 Author Organization [employer] Address [address], [place] [address] Care Team Providers Name Role Phone Pcp, Pt Declines Primary Care Provider Reason for Visit Procedure/Equipment (Routine) - Incomplete Specialty Diagnoses / Procedures Referred By Contact Refer red To Contact Diagnoses Chronic pain of left ankle Devon Camargo MD Procedures XR Ankle Lt 3 Views [address] [facility] [place], [place] [address] Referral ID Status Reason Start Date Expiration Date Visits V isits Requested Authorized [id number] Incomplete 10/05/2021 01/04/2023 1 1 Encounter Details Date Type Department Care Team Description 10/05/2021 Ancillary Park Devon Rollins Chronic pain of Procedure Samuel Lucero MD left ankle Radiology [address] [facility] [address] [place], [place] [address] [address] [place], [place] [phone] [address] (Work) [phone] Social History Tobacco Use Types Packs/Day Years [...] pain o f left Results for this SHRIMP PEELING MACHINE TENDER ankle procedure are i n the results section. documented in this encounter Results XR Ankle Lt 3 Views (10/05/2021 11:50 AM SHRIMP PEELING MACHINE TENDER) Anatomical Region Laterality Modality Lower Extremity, Ankle, Foot & Ankle Dig ital Radiography Specimen (Source) Anatomical Collection Method Collection Time Re ceived Time Location / / Volume Laterality 10/05/2021 11:43 AM SHRIMP PEELING MACHINE TENDER Impressions 10/05/2021 11:53 AM SHRIMP PEELING MACHINE TENDER COMPARISON: ??CT 09/03/2021 FINDINGS: ??3 views obtained [...] ankle documented in this encounter Care Teams Stripper Black And White Relationship Specialty Start Date End Date Pcp, Sarkis Ash MD PCP - General 05/05/21 [place] [address] documented as of this encounter
--- OUTSIDE RECORDS SUMMARY | 2022-08-16 11:16 | XMS_ITS | Encounter Summary ---
:1970 Author Organization [facility] Address [address] [place] [address] Care Team Providers Name Role Phone Pcp, Pt Declines Primary Care Provider Encounter Details Date Type Department Care Team Description 09/01/2021 Telephone [facility] Devon Rosado MD [address] [facility] [address] [facility] [place], [place] [address] [place], [place] [address] (Wo rk) Social History Tobacco Use Types Packs/Day Years Used Date Smoking Tobacco: Never Smokeless Tobacco: Never Sex Assigned at Date Recorded Not on file documented as of this encounter Nursing Notes Radha Travis - 09/02/2021 7:19 AM CDT Left Ankle CT without Contrast Code: 50181 ICD-10 Code: M19.072 Devon Camargo M.D. [facility] #: [id number] Per Availity, NO PRIOR AUTHORIZATION REQUIRED Transaction ID: [id number] Patient notified. will call with results. Radha Travis - 09/01/2021 3:58 PM CDT Hi there, Looking for PA request Saba Berrios CT left ankle no contrast [employer] [place] Asher Camargo MD Thank you, Radha documented in this encounter Plan of Treatment Not on filedocumented as of this encounter Visit Diagnoses Not on filedocumented in this encounter Care Teams Smasher Relationship Specialty Start Date End Date Pcp, Sarkis Ash MD PCP - General 05/05/21 [place] [address] documented as of this encounter
--- OUTSIDE RECORDS SUMMARY | 2022-08-16 11:16 | XMS_ITS | Encounter Summary ---
:1970 Author Organization [facility] Address [address], [place] [address] Care Team Providers Name Role Phone Pcp, Pt Declines MD Primary Care Provider Reason for Visit Auth/Cert Specialty Diagnoses / Procedures Referred By Contact Refer red To Contact Diagnoses Osteoarthritis of left ankle and foot Procedures ANKLE, DISTAL TIBIA CHEILECTOMY Referral ID Status Reason Start Date Expiration Date Visits Requ ested Visits Authorized [id number] 1 1 Encounter Details Date Type Department Care Team Description 09/24/2021 Anesthesia Event [facility] AMB SURGERY C TR Chevy Coffman MD [address] [place], [place] [address] [facility] [place] Kelley APRN, CRNA [address] [place] [address] [place] [address] Anesthesia Record Procedure Summary Procedure Name Responsible Anesthesia Start Anesthesia Stop Anesthesiologist Time Time ANKLE, DISTAL TIBIA Chevy Coffman MD 09/24/21 1144 09/24 1403 CHEILECTOMY (Left: Foot) Events Date Time Event Comment 09/24/2021 0929 1144 An Start 1144 Quick Note Anesthesia start time denotes sedation started by LOGISTICS MANAGEMENT SPECIALIST currently o n case; patient continuously monitored to O.R . By LOGISTICS MANAGEMENT SPECIALIST 1147 An Start Data 1150 MD/DO Present [...] Electr onically signed by Pati Grullon APRN, LOGISTICS MANAGEMENT SPECIALIST 1403 An Stop Care transferred . Name [...] Chevy Coffman MD 09/24/2021 3:39 PM ER HELPER Anesthesia Procedure Notes - Chevy Coffman MD - 09/24/2021 9:12 AM FORGER HELPER Associated Order(s): Peripheral Block Peripheral Block Performed [...] Mask and Sterile gloves Monitoring: Blood pressure, campus monitor and continuous pulse oximetry Patient Position: [...] 2 mg - 09/24/2021 9:07:00 AM ER HELPER Anesthesia Procedure Notes - Chevy Coffman MD - 09/24/2021 9:10 AM FORGER HELPER Associated Order(s): Peripheral Block Peripheral Block Performed [...] Mask and Sterile gloves Monitoring: Blood pressure, campus monitor and continuous pulse oximetry Patient Position: [...] 2 mg - 09/24/2021 9:03:00 AM ER HELPER Anesthesia Preprocedure Evaluation - Chevy Coffman MD [...] benefits and alternatives discussed with: Patient or Manager Economic agree tothe anesthesia treatment plan and Patient. H&P Reviewed and Patient examined, no change observed IV access Antibiotics per surgery Electronically signed by: Chevy Coffman MD 09/24/2021 8:36 AM ER HELPER documented in this encounter Plan of Treatment Not on filedocumented as of this encounter Procedures Procedure Name Priority Date/Time Associated Diagnosis Comme nts PERIPHERAL BLOCK Routine 09/24/2021 9:12 AM Resul ts for this FORGER HELPER procedure are i n the results section. PERIPHERAL BLOCK Routine 09/24/2021 9:10 AM Resul ts for this FORGER HELPER procedure are i n the results section. documented in this encounter Results PERIPHERAL BLOCK (09/24/2021 9:12 AM FORGER HELPER) Narrative EXTERNAL RESULTS - 09/24/2021 9:12 AM [...] EXTERNAL RESULTS PERIPHERAL BLOCK (09/24/2021 9:10 AM FORGER HELPER) Narrative EXTERNAL RESULTS - 09/24/2021 9:10 AM [...] 2 g in Given 09/24/2021 11:44 AM FORGER HELPER 2 g dextrose 100 ml IVPB 2 g, Intravenous, Administer over 30 Minutes, ONCE, On Susanna 09/24/21 at 0800, For 1 dose, Infuse within 60 minutes prior to incision; Re-dose 1 gram IV every 4 hours after initial dose until incision closed., Pre-op dexamethasone (DECADRON) injection Given 09/24/2021 12:10 PM FORGER HELPER 4 mg Intravenous, Starting on Susanna 09/24/21 at 1210, Until Susanna 09/24/21 at 1403 dexamethasone PF (DECADRON) injection Given 09/24/2021 9:03 AM FORGER HELPER 2 mg Regional Nerve Block, Starting on Susanna 09/24/21 at 0903, Until Susanna 09/24/21 at 0903 dexamethasone PF (DECADRON) injection Given 09/24/2021 9:07 AM FORGER HELPER 2 mg Regional Nerve Block, Starting on Susanna 09/24/21 at 0907, Until Susanna 09/24/21 at 0907 dexmedetomidine 20 mcg/5 mL injection Given 09/24/2021 12:57 PM FORGER HELPER 4 mcg Intravenous, Starting on Susanna 09/24/21 at 1251, Until Susanna 09/24/21 at 1403 Given 09/24/2021 12:51 PM FORGER HELPER 4 mcg fentaNYL (SUBLIMAZE) injection Given 09/24/2021 1:04 PM FORGER HELPER 25 mcg Intravenous, Starting on Susanna 09/24/21 at 1144, Until Susanna 09/24/21 at 1403 Given 09/24/2021 1:03 PM FORGER HELPER 25 mcg Given 09/24/2021 11:44 AM FORGER HELPER 50 mcg lactated ringers infusion Started 09/24/2021 1:28 PM FORGER HELPER 25 mL/hr, Intravenous, CONTINUOUS, Starting on Susanna 09/24/21 at 0800, Administer on all preop surgery patients, ages 12 and older, unless specified differently in the Protocol for Preop Initiation of IV fluids Order Set., Pre-op Restarted 09/24/2021 11:41 AM FORGER HELPER Started 09/24/2021 7:56 AM FORGER HELPER 25 mL/hr 25 mL/hr lidocaine PF (XYLOCAINE) 1 % injection Given 09/24/2021 8:58 AM FORGER HELPER 2 mL Subcutaneous, Starting on Susanna 09/24/21 at 0858 lidocaine PF (XYLOCAINE) 1 % injection Given 09/24/2021 9:04 AM FORGER HELPER 2 mL Subcutaneous, Starting on Susanna 09/24/21 at 0904 midazolam (VERSED) injection Given 09/24/2021 11:52 AM FORGER HELPER 1 mg Intravenous, Starting on Susanna 09/24/21 at 1152, Until Susanna 09/24/21 at 1403 ondansetron (ZOFRAN) injection Given 09/24/2021 11:58 AM FORGER HELPER 4 mg Intravenous, Starting on Susanna 09/24/21 at 1158, Until Susanna 09/24/21 at 1403 propofol (DIPRIVAN) 10 mg/mL Rate/Dose 09/24/2021 1:17 70 mcg/kg/min 43.26 injection Change PM FORGER HELPER mL/hr Intravenous, Starting on Susanna 09/24/21 at 1149, Until Susanna 09/24/21 at 1403 Rate/Dose Change 09/24/2021 1:07 PM FORGER HELPER 140 mcg/kg/min 86.52 mL/hr Rate/Dose Change 09/24/2021 12:44 PM FORGER HELPER 85 mcg/kg/min 52.53 mL/hr ropivacaine 0.5% (5 mg/mL) (NAROPIN) 5 MG/ML Given 9:03 AM FORGER HELPER 15 mL injection Regional Nerve Block, Starting on Susanna 09/24/21 at 0903, Until Susanna 09/24/21 at 0903 ropivacaine 0.5% (5 mg/mL) (NAROPIN) 5 MG/ML Given 9:07 AM FORGER HELPER 15 mL injection Regional Nerve Block, Starting on Susanna 09/24/21 at 0907, Until Susanna 09/24/21 at 0907 documented in this encounter Care Teams Student Services Rep Relationship Specialty Start Date End Date PcpSarkis MD PCP - General 05/05/21 [place] [address] documented as of this encounter
--- OUTSIDE RECORDS SUMMARY | 2022-08-16 11:16 | XMS_ITS | Encounter Summary ---
:1970 Author Organization [employer] Address [address] [place] [address] Care Team Providers Name Role Phone Pcp, Pt Declines Primary Care Provider Reason for Visit Reason Comments Follow Up Ct Results Encounter Details Date Type Department Care Team Description 09/08/2021 Telephone [facility] Devon Camargo Fol [facility] Up Ct Results Surgery Center [address] [facility] [place], [place] [address] [place] [address] [phone] (Wo rk) Social History Tobacco Use Types Packs/Day Years Used Date Smoking Tobacco: Never Smokeless Tobacco: Never Sex Assigned at Date Recorded Not on file documented as of this encounter Nursing Notes Dian Salvador - 09/15/2021 12:03 PM CST Patient LVM asking to schedule surgery - please enter optime orders. She would like surgery @ [facility]. Thank you, CD LIES PACKER Devon Camargo MD - 09/08/2021 4:31 PM CDT Discussed that there is a large anterior osteophyte on the tibia. Removing this could help since most of her pain is when she dorsiflexes her ankle. Discussed that this will likely not cure her pain and will not be a intermediate fix, but will potentially give her a few more months or years before movingon to an ankle fusion. documented in this encounter Plan of Treatment Not on filedocumented as of this encounter Visit Diagnoses Not on filedocumented in this encounter Care Teams Cigarette Inspector Relationship Specialty Start Date End Date PcpSarkis MD PCP - General 05/05/21 [place] [address] documented as of this encounter
--- OUTSIDE RECORDS SUMMARY | 2022-08-16 11:16 | XMS_ITS | Encounter Summary ---
:1970 Author Organization [facility] Address [address] [address] Care Team Providers Name Role Phone PcpSarkis MD Primary Care Provider Encounter Details Date Type Department Care Team Description 11/07/2021 Notes/Orders [facility] Devon Camargo MD [place] [address] [place] [address] [address] [place] [address] [place], [place] [address] [phone] Social History Tobacco Use Types Packs/Day Years Used Date Smoking Tobacco: Never Smokeless Tobacco: Never Sex Assigned at Date Recorded Not on file documented as of this encounter Plan of Treatment Not on filedocumented as of this encounter Visit Diagnoses Not on filedocumented in this encounter Care Teams Field Identification Specialist Relationship Specialty Start Date End Date Sarkis Romero MD PCP - General 05/05/21 [place], [place] [address] documented as of this encounter
--- OUTSIDE RECORDS SUMMARY | 2022-08-16 11:16 | XMS_ITS | Encounter Summary ---
:1970 Author Organization [facility] Address [address], [place] [address] Care Team Providers Name Role Phone Pcp, Pt Declines Primary Care Provider Reason for Visit Procedure/Equipment (Routine) - Incomplete Specialty Diagnoses / Procedures Referred By Contact Refer red To Contact Procedures Devon Camargo MD FL C Arm Mini [address] [facility] [place], [place] [address] Referral ID Status Reason Start Date Expiration Date Visits V isits Requested Authorized [id number] Incomplete 09/21/2021 12/21/2022 1 1 Encounter Details Date Type Department Care Team Description 09/24/2021 Ancillary Procedure Devon Salmeron 29608Torres Lucero MD Radiology [address] [place] [address] [place] [address] [id number] [phone] Social History Tobacco Use Types Packs/Day Years Used Date Smoking Tobacco: Never Smokeless Tobacco: Never Sex Assigned at Date Recorded Not on file documented as of this encounter Plan of Treatment Not on filedocumented as of this encounter Procedures Procedure Name Priority Date/Time Associated Diagnosis Comme nts FL C ARM MINI Routine 09/24/2021 1:15 PM Results for this TELESALES SUPERVISOR procedure are i n the results section . documented in this encounter Results FL C Arm Mini (09/24/2021 1:15 PM TELESALES SUPERVISOR) Anatomical Region Laterality Modality Radio Fluoroscopy Specimen (Source) Anatomical Location Collection Method / Collectio n Time Received Time / Laterality Volume Narrative 09/24/2021 4:31 PM TELESALES SUPERVISOR These images were obtained during a surg ical procedure. Devon Camargo MD [facility] documented in this encounter Visit Diagnoses Not on filedocumented in this encounter Care Teams Forestry Fire Aide Relationship Specialty Start Date End Date Pcp, Sarkis Ash MD PCP - General 05/05/21 [place] [address] documented as of this encounter
--- OUTSIDE RECORDS SUMMARY | 2022-08-16 11:16 | XMS_ITS | Encounter Summary ---
:1970 Author Organization [facility] Address [address] [place] [address] Care Team Providers Name Role Phone Pcp, Pt Declines MD Primary Care Provider Reason for Visit Procedure/Equipment (Routine) - Closed Specialty Diagnoses / Procedures Referred By Contact Refer red To Contact Diagnoses Osteoarthritis of left ankle and foot Devon Camargo MD Procedures CT Ankle Lt WO IV Cont [address] [facility] [place], [place] [address] Referral ID Status Reason Start Date Expiration Date Visits Requ ested Visits Authorized [id number] Closed 09/01/2021 12/01/2022 1 1 Encounter Details Date Type Department Care Team Description 09/03/2021 Ancillary [place] Nataliia Camargo, Osteoarthritis of left Procedure Mobile [id number] Devon Lucero MD ankle and foot CT Scan [address] [facility] [address] [place], [place] [address] [address] [place], [place] [phone] [address] (Work) [phone] Social History Tobacco Use Types Packs/Day Years [...] foot documented in this encounter Care Teams Lease Out Worker Relationship Specialty Start Date End Date PcpSarkis MD PCP - General 05/05/21 [place] [address] documented as of this encounter
--- OUTSIDE RECORDS SUMMARY | 2022-08-16 11:16 | XMS_ITS | Encounter Summary ---
:1970 Author Organization [employer] Address [address], [place] [address] Care Team Providers Name Role Phone Pcp, Pt Declines MD Primary Care Provider Reason for Referral Procedure/Equipment (Routine) - Incomplete Specialty Diagnoses / Procedures Referred By Contact Refer red To Contact Diagnoses Osteoarthritis of left ankle and foot Devon Camargo MD Procedures Airselect Elite/Standard Tall Boot([id number]) [address] [facility] [address] [place], [place] [address] Referral ID Status Reason Start Date Expiration Date Visits V isits Requested Authorized [id number] Incomplete 10/05/2021 01/04/2023 1 1 ER EDUCATION ADMINISTRATOR Therapies (Routine) - Closed Specialty Diagnoses / Procedures Referred By Contact Refer red To Contact Diagnoses Chronic pain of left ankle Devon Camargo MD [address] [facility] [address] [place], [place] [address] Referral ID Status Reason Start Date Expiration Date Visits Requ ested Visits Authorized [id number] Closed 10/05/2021 10/05/2022 1 1 Scheduling Instructions [...] ask your clinician's staff to assist you. ER EDUCATION ADMINISTRATOR Procedure/Equipment (Routine) - Incomplete Specialty Diagnoses / Procedures Referred By Contact Refer red To Contact Diagnoses Chronic pain of left ankle Devon Camargo MD Procedures XR Ankle Lt 3 Views [address] [facility] [address] [place] [address] Referral ID Status Reason Start Date Expiration Date Visits V isits Requested Authorized [id number] Incomplete 10/05/2021 01/04/2023 1 1 ER EDUCATION ADMINISTRATOR Reason for Visit Reason Comments Follow-up left ankle Encounter Details Date Type Department Care Team Description 10/05/2021 Office Visit Devon Keene pain of left ankle (Primary Dx); Orthopaedics & Sports MD Jazmine Osteoarthritis of left ankle and foot Medicine [address] [facility] [address] [place], [place] [id number] [phone] Social History Tobacco Use Types Packs/Day Years [...] Camargo MD Orthopedic Foot and Ankle Surgery ER EDUCATION ADMINISTRATOR documented in this encounter Plan of Treatment Scheduled Referrals Name Type Priority Associated Diagnoses Order S chedule Physical Therapy Referral Routine Chronic pain of left ank le Ordered: 10/05/2021 documented as of this encounter Results XR Ankle Lt 3 Views (10/05/2021 11:50 AM HIGHER EDUCATION ADMINISTRATOR) Anatomical Region Laterality Modality Lower Extremity, Ankle, Foot & Ankle Dig ital Radiography Specimen (Source) Anatomical Collection Method Collection Time Re ceived Time Location / / Volume Laterality 10/05/2021 11:43 AM HIGHER EDUCATION ADMINISTRATOR Impressions 10/05/2021 11:53 AM HIGHER EDUCATION ADMINISTRATOR COMPARISON: ??CT 09/03/2021 FINDINGS: ??3 views obtained [...] ankle documented in this encounter Care Teams Sinter Press Operator Relationship Specialty Start Date End Date Pcp, Pt MD Mihir PCP - General 05/05/21 [place] [address] documented as of this encounter
--- OUTSIDE RECORDS SUMMARY | 2022-08-16 11:16 | XMS_ITS | Encounter Summary ---
:1970 Author Organization [facility] Address [address], [place] [address] Care Team Providers Name Role Phone Pcp, Pt Declines Primary Care Provider Reason for Visit (Routine) - Incomplete Specialty Diagnoses / Procedures Referred By Contact Refer red To Contact Procedures Chevy Coffman MD US Anesthesia Guided Block [address] [place], [place] [address] Referral ID Status Reason Start Date Expiration Date Visits V isits Requested Authorized [id number] Incomplete 09/24/2021 12/24/2022 1 1 Encounter Details Date Type Department Care Team Description 09/24/2021 Ancillary Procedure Radiology PACS [address] [place] [address] Social History Tobacco Use Types Packs/Day Years Used Date Smoking Tobacco: Never Smokeless Tobacco: Never Sex Assigned at Date Recorded Not on file documented as of this encounter Plan of Treatment Not on filedocumented as of this encounter Procedures Procedure Name Priority Date/Time Associated Comments Diagnosis US ANESTHESIA GUIDED STAT 09/24/2021 8:27 AM R esults for this BLOCK RETAIL DELIVERY DRIVER procedure are i n the results section. documented in this encounter Results US Anesthesia Guided Block (09/24/2021 8:27 AM RETAIL DELIVERY DRIVER) Anatomical Region Laterality Modality Ultrasound Specimen (Source) Anatomical Location Collection Method / Collectio n Time Received Time / Laterality Volume Narrative 09/24/2021 8:27 AM RETAIL DELIVERY DRIVER If an Anesthesia block was performed please see the Anesthesia encounter for documentation. ??This procedure was performed and interpreted by the performing provider. ?? Chevy Coffman MD RAD US documented in this encounter Visit Diagnoses Not on filedocumented in this encounter Care Teams Business Architect Relationship Specialty Start Date End Date Pcp, Sarkis Ash MD PCP - General 05/05/21 [place], [place] [address] documented as of this encounter
--- OUTSIDE RECORDS SUMMARY | 2022-08-16 11:16 | XMS_ITS | Encounter Summary ---
:1970 Author Organization [employer] Address [address], [place] [address] Care Team Providers Name Role Phone Pcp, Pt Declines Primary Care Provider Reason for Visit Reason Comments ANKLE PAIN L ankle pain H/O ORIF Encounter Details Date Type Department Care Team Description 06/18/2021 Office Visit Specialty [facility] 393 Steve Workman rthritis of left [facility] MD Guillaume ankle (Primary Dx) [address] [phone] (Wo rk) Social History Tobacco Use Types [...] foot documented in this encounter Care Teams Administrative Supervisor Relationship Specialty Start Date End Date PcpSarkis MD PCP - General 05/05/21 [place] [address] documented as of this encounter
--- OUTSIDE RECORDS SUMMARY | 2022-08-16 11:16 | XMS_ITS | Encounter Summary ---
:1970 Author Organization [facility] Address [address] [place] [address] Care Team Providers Name Role Phone Pcp, Pt Declines MD Primary Care Provider Reason for Visit Procedure/Equipment (Routine) - Incomplete Specialty Diagnoses / Procedures Referred By Contact Refer red To Contact Diagnoses Post-traumatic osteoarthritis of left ankle Steve Workman MD Procedures FL Injection Ankle Lt [address] [place], [place] [address] Referral ID Status Reason Start Date Expiration Date Visits V isits Requested Authorized [id number] Incomplete 07/03/2021 10/02/2022 1 1 Encounter Details Date Type Department Care Team Description 07/16/2021 Ancillary [facility] Steve Workman Post-traumatic Procedure [address] Judah Galaviz MD osteoarthritis of left Drive [address] [place] ankle [facility] [address] [place], [place] [phone] Social History Tobacco Use Types Packs/Day Years [...] 0 out of 10. Steve Workman MD [facility] [place] documented in this encounter Visit Diagnoses [...] dose documented in this encounter Care Teams Polishing Machine Operator Helper Relationship Specialty Start Date End Date Pcp, Sarkis Ash MD PCP - General 05/05/21 [place] [address] documented as of this encounter
--- OUTSIDE RECORDS SUMMARY | 2022-08-16 11:16 | XMS_ITS | Encounter Summary ---
:1970 Author Organization [facility] Address [address] [address] Care Team Providers Name Role Phone Pcp, Pt Declines Primary Care Provider Reason for Visit Auth/Cert Specialty Diagnoses / Procedures Referred By Contact Refer red To Contact Diagnoses Osteoarthritis of left ankle and foot Procedures ANKLE, DISTAL TIBIA CHEILECTOMY Referral ID Status Reason Start Date Expiration Date Visits Requ ested Visits Authorized [id number] 1 1 Encounter Details Date Type Department Care Team Description 09/24/2021 Surgery [facility] SURGERY C TR Devon Camargo, ANKLE, DISTAL TIBIA [address] [facility] CHEILECTOMY [place], [place] [address] [facility] [address] [place], [place] [address] (Wo rk) Social History Tobacco Use Types Packs/Day Years Used Date Smoking Tobacco: Never Smokeless Tobacco: Never Sex Assigned at Date Recorded Not on file documented as of this encounter Last Filed Vital Signs Vital Sign Reading Time Taken Comments Blood Pressure 104/64 09/24/2021 9:11 AM BARREL RIB MATTING MACHINE OPERATOR Pulse 67 09/24/2021 9:11 AM BARREL RIB MATTING MACHINE OPERATOR Temperature 36.9 ??C (98.4 ??F) 09/24/2021 7:42 AM BARREL RIB MATTING MACHINE OPERATOR Respiratory Rate 14 09/24/2021 9:11 AM BARREL RIB MATTING MACHINE OPERATOR Oxygen Saturation 98% 09/24/2021 9:11 AM BARREL RIB MATTING MACHINE OPERATOR Inhaled Oxygen Concentration - - Weight 103 kg (227 lb) 09/24/2021 7:45 AM BARREL RIB MATTING MACHINE OPERATOR Height 170.2 cm (5' 7) 09/24/2021 7:45 AM BARREL RIB MATTING MACHINE OPERATOR Body Mass Index 35.55 09/24/2021 7:45 AM BARREL RIB MATTING MACHINE OPERATOR documented in this encounter Medications at Time [...] AM CST PPA call completed by calling [phone] and spoke to patient. Advised of arrival time 0730. Reviewed pre-procedure questions, detailed instructions with NPO guidelines and address given. Advised of visitor guidelines (1 visitor, 18+ yr in age for adults and 2 parents or legal guardians- peds)All questions answered, no other needs at this time. EL RIB MATTING MACHINE OPERATOR documented in this encounter Procedure Notes Devon [...] weight-bearing CAMboot. Devon Camargo M.D. Orthopedic Surgery EL RIB MATTING MACHINE OPERATOR Devon Camargo MD - 09/24/2021 1:37 PM [...] of splint Devon Camargo M.D. Orthopedic Surgery EL RIB MATTING MACHINE OPERATOR documented in this encounter OR Notes H&P [...] candidate for surgery. Devon Camargo MD 09/24/2021 EL RIB MATTING MACHINE OPERATOR documented in this encounter Plan of Treatment Not on filedocumented as of this encounter Procedures Procedure Name Priority Date/Time Associated Diagnosis Comme nts FL C ARM MINI Routine 09/24/2021 1:15 Results for this PM BARREL RIB MATTING MACHINE OPERATOR procedure are i n the results section. CHEILECTOMY 09/24/2021 11:36 Osteoarthritis of left AM BARREL RIB MATTING MACHINE OPERATOR ankle and foot US ANESTHESIA GUIDED STAT 09/24/2021 8:27 Resu lts for this BLOCK AM BARREL RIB MATTING MACHINE OPERATOR procedure are i n the results section. documented in this encounter Results FL C Arm Mini (09/24/2021 1:15 PM BARREL RIB MATTING MACHINE OPERATOR) Anatomical Region Laterality Modality Radio Fluoroscopy Specimen (Source) Anatomical Location Collection Method / Collectio n Time Received Time / Laterality Volume Narrative 09/24/2021 4:31 PM BARREL RIB MATTING MACHINE OPERATOR These images were obtained during a surg ical procedure. Devon Camargo MD RAD FL US Anesthesia Guided Block (09/24/2021 8:27 AM BARREL RIB MATTING MACHINE OPERATOR) Anatomical Region Laterality Modality Ultrasound Specimen (Source) Anatomical Location Collection Method / Collectio n Time Received Time / Laterality Volume Narrative 09/24/2021 8:27 AM BARREL RIB MATTING MACHINE OPERATOR If an Anesthesia block was performed please [...] acetaminophen (TYLENOL) tablet Given 09/24/2021 7:55 AM BARREL RIB MATTING MACHINE OPERATOR 1,00 0 mg 1,000 mg 1,000 mg, [...] (SUBLIMAZE) injection 25-50 mcg 25-50 mcg, Intravenous, [id number], Other, 25 mcg for Mi ld to Moderate Pain (pain score 1-5), 50 mcg for Moderate to Severe Pain (pain s core 6 and above) in the immediate postop period when faster on-set, short acti ng agent is desired., Starting on Susanna 09/24/21 at 0814, Until Suasnna 09/24/21 at 1629, Administer every 5 minutes [...] lactated ringers infusion Started 09/24/2021 1:28 PM BARREL RIB MATTING MACHINE OPERATOR 25 mL/hr, Intravenous, CONTINUOUS, Starting on Susanna 09/24/21 at 0800, Administer on all preop surgery patients, ages 12 and older, unless specified differently in the Protocol for Preop Initiation of IV fluids Order Set., Pre-op Restarted 09/24/2021 11:41 AM BARREL RIB MATTING MACHINE OPERATOR Started 09/24/2021 7:56 AM BARREL RIB MATTING MACHINE OPERATOR 25 mL/hr 25 mL/hr meperidine (DEMEROL) injection 12.5 mg 12.5 mg, Intravenous, [id number], Shiverin g, Starting on Susanna 09/24/21 at 0814, Until Susanna 09/24/21 at 1629, For 2 doses, Maxim um cumulative dose is 25 mg. Do not give to patients receiving MAO inhibitors (e.g. phenelzine (NA RDIL), tranylcypromine (PARNATE), selegiline (ELDEPRYL))., PACU/Recovery midazolam (VERSED) injection 1-2 mg Given 09/24/2021 8:56 AM BARREL RIB MATTING MACHINE OPERATOR 2 mg 1-2 mg, Intravenous, [id number], Sedation, Anxiety, Procedure, Starting on Susanna 09/24/21 [...] Recently Administered Medications Times are shown in BARREL RIB MATTING MACHINE OPERATOR. Scheduled Medication Order 09/22/2021 09/23/2021 09/24/2021 acetaminophen [...] (SUBLIMAZE) injection 25-50 mcg 25-50 mcg, Intravenous, [id number], Other, 25 mcg for Mild to Moderate [...] longer acting agent is desired., Starting on [facility] 09/24/21 at 0814, Until Susanna 09/24/21 [...] (DEMEROL) injection 12.5 mg 12.5 mg, Intravenous, [id number], Shiverin g, Starting on Susanna 09/24/21 at 0814, Until Susanna 09/24/21 at 1629, For 2 doses, Maximum cumulative dose is 25 mg. Do not give to patients receiving MAO inhibitors ( e.g. phenelzine (NARDIL), tranylcypromin e (PARNATE), selegiline (ELDEPRYL))., PACU/Recovery midazolam (VERSED) injection 1-2 mg 0856 (Given - Provider: Emmy Holguin RN) 1-2 mg, Intravenous, [id number], Sedation, Anxiety, Procedure, Starting on Susanna 09/24/21 [...] PACU/Recovery documented in this encounter Care Teams Personal Injury Legal Assistant Relationship Specialty Start Date End Date Pcp, Sarkis Ash MD PCP - General 05/05/21 [place] [address] documented as of this encounter
--- OUTSIDE RECORDS SUMMARY | 2022-08-16 11:16 | XMS_ITS | Encounter Summary ---
:1970 Author Organization [facility] Address [address], [place] [address] Care Team Providers Name Role Phone Pcp, Pt Declines MD Primary Care Provider Reason for Referral Procedure/Equipment (Routine) - Incomplete Specialty Diagnoses / Procedures Referred By Contact Refer red To Contact Diagnoses Osteoarthritis of left ankle and foot Deovn Mejia MD Procedures Case Request OR - Orthopedic Surgery: ANKLE, DISTAL TIBIA CHEILECTOMY [address] [facility] [place], [place] [address] Referral ID Status Reason Start Date Expiration Date Visits V isits Requested Authorized [id number] Incomplete 09/15/2021 12/15/2022 1 1 T TAILER Procedure/Equipment (Routine) - Closed Specialty Diagnoses / Procedures Referred By Contact Refer red To Contact Diagnoses Osteoarthritis of left ankle and foot Devon Mejia MD Procedures CT Ankle Lt WO IV Cont [address] [facility] [place], [place] [address] Referral ID Status Reason Start Date Expiration Date Visits Requ ested Visits Authorized [id number] Closed 09/01/2021 12/01/2022 1 1 Reason for Visit Reason Comments ANKLE PAIN Consult/Transfer Care (Routine) - New Request Specialty Diagnoses / Procedures Referred By Contact Refer red To Contact Diagnoses Arthritis of left ankle Steve Workman MD [address] [place], [place] [address] Referral ID Status Reason Start Date Expiration Date Visits V isits Requested Authorized [id number] New Request 07/30/2021 10/29/2022 1 1 Encounter Details Date Type Department Care Team Description 09/01/2021 Office Visit [facility] Devon Mejia Osteo arthritis of left CENTER MD Jazmine ankle and foot (Primary [address] [facility] [address] [facility] [address] Dx) [place] [address] [phone] Social History Tobacco Use Types Packs/Day Years Used Date Smoking Tobacco: Never Smokeless Tobacco: Never Sex Assigned at Date Recorded Not on file documented as of this encounter Patient Instructions Patient InstructionsRadha Travis - 09/01/2021 3:30 PM CDT Thank you for visiting our clinic today. To schedule a follow up appointment please call [phone] To reschedule an imaging appointment please call: [phone] Contact: Triage and or medical questions: [phone] Please notify the office with the following information if you are having surgery, and will need short term disability forms filled out. What is the first day of your leave? When are you returning to work? 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 Will you need restrictions for returning to work? Please give us a short description of job duties i.e. desk work vs. labor intensive documented in this encounter Progress Notes Devon Mejia MD - 09/01/2021 3:30 PM CDT Addended by: DEVON MEJIA on: 09/15/2021 12:23 PM Modules accepted: Orders, SmartSet T TAILER Devon Mejia MD - 09/01/2021 3:30 PM [...] possible before undergoing an ankle fusion. 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
--- OUTSIDE RECORDS SUMMARY | 2022-08-16 11:16 | XMS_ITS | Encounter Summary ---
:1970 Author Organization [facility] Address [address] [address] Care Team Providers Name Role Phone Pcp, Pt Declines MD Primary Care Provider Reason for Referral (Routine) - Incomplete Specialty Diagnoses / Procedures Referred By Contact Refer red To Contact Procedures Chevy Coffman MD Anesthesia Guided Block [address] [place], [place] [address] Referral ID Status Reason Start Date Expiration Date Visits V isits Requested Authorized [id number] Incomplete 09/24/2021 12/24/2022 1 1 MAN/PILE DRIVING AND ERECTION Procedure/Equipment (Routine) - Incomplete Specialty Diagnoses / Procedures Referred By Contact Refer red To Contact Procedures Devon Camargo MD OK C Arm Mini [address] [place], [place] [address] Referral ID Status Reason Start Date Expiration Date Visits V isits Requested Authorized [id number] Incomplete 09/21/2021 12/21/2022 1 1 MAN/PILE DRIVING AND ERECTION Reason for Visit Auth/Cert Specialty Diagnoses / Procedures Referred By Contact Refer red To Contact Diagnoses Osteoarthritis of left ankle and foot Procedures ANKLE, DISTAL TIBIA CHEILECTOMY Referral ID Status Reason Start Date Expiration Date Visits Requ ested Visits Authorized [id number] 1 1 Encounter Details Date Type Department Care Team Description 09/24/2021 Hospital Encounter [facility] AMB SURGERY C TR Devon Camargo, [address] [facility] [place], [place] [address] [facility] [address] [place] [address] [phone] (Wo rk) Social History Tobacco Use Types Packs/Day Years Used Date Smoking Tobacco: Never Smokeless Tobacco: Never Sex Assigned at Date Recorded Not on file documented as of this encounter Last Filed Vital Signs Vital Sign Reading Time Taken Comments Blood Pressure 108/70 09/24/2021 2:30 PM FOREMAN/PILE DRIVING AND ERECTION Pulse 71 09/24/2021 2:30 PM FOREMAN/PILE DRIVING AND ERECTION Temperature 36.6 ??C (97.9 ??F) 09/24/2021 2:02 PM FOREMAN/PILE DRIVING AND ERECTION Respiratory Rate 16 09/24/2021 2:30 PM FOREMAN/PILE DRIVING AND ERECTION Oxygen Saturation 98% 09/24/2021 2:30 PM FOREMAN/PILE DRIVING AND ERECTION Inhaled Oxygen Concentration - - Weight 103 kg (227 lb) 09/24/2021 7:45 AM FOREMAN/PILE DRIVING AND ERECTION Height 170.2 cm (5' 7) 09/24/2021 7:45 AM FOREMAN/PILE DRIVING AND ERECTION Body Mass Index 35.55 09/24/2021 7:45 AM FOREMAN/PILE DRIVING AND ERECTION documented in this encounter Medications at Time [...] AM CST PPA call completed by calling [phone] and spoke to patient. Advised of arrival time 0730. Reviewed pre-procedure questions, detailed instructions with NPO guidelines and address given. Advised of visitor guidelines (1 visitor, 18+ yr in age for adults and 2 parents or legal guardians- peds)All questions answered, no other needs at this time. MAN/PILE DRIVING AND ERECTION documented in this encounter Procedure Notes Devon [...] weight-bearing CAMboot. Devon Camargo M.D. Orthopedic Surgery MAN/PILE DRIVING AND ERECTION Devon Camargo MD - 09/24/2021 1:37 PM [...] of splint Devon Camargo M.D. Orthopedic Surgery MAN/PILE DRIVING AND ERECTION documented in this encounter OR Notes H&P [...] candidate for surgery. Devon Camargo MD 09/24/2021 MAN/PILE DRIVING AND ERECTION documented in this encounter Plan of Treatment Not on filedocumented as of this encounter Procedures Procedure Name Priority Date/Time Associated Diagnosis Comme nts FL C ARM MINI Routine 09/24/2021 1:15 Results for this PM FOREMAN/PILE DRIVING AND ERECTION procedure are i n the results section. CHEILECTOMY 09/24/2021 11:36 Osteoarthritis of left AM FOREMAN/PILE DRIVING AND ERECTION ankle and foot US ANESTHESIA GUIDED STAT 09/24/2021 8:27 Resu lts for this BLOCK AM FOREMAN/PILE DRIVING AND ERECTION procedure are i n the results section. documented in this encounter Results FL C Arm Mini (09/24/2021 1:15 PM FOREMAN/PILE DRIVING AND ERECTION) Anatomical Region Laterality Modality Radio Fluoroscopy Specimen (Source) Anatomical Location Collection Method / Collectio n Time Received Time / Laterality Volume Narrative 09/24/2021 4:31 PM FOREMAN/PILE DRIVING AND ERECTION These images were obtained during a surg ical procedure. Devon Camargo MD RAD FL US Anesthesia Guided Block (09/24/2021 8:27 AM FOREMAN/PILE DRIVING AND ERECTION) Anatomical Region Laterality Modality Ultrasound Specimen (Source) Anatomical Location Collection Method / Collectio n Time Received Time / Laterality Volume Narrative 09/24/2021 8:27 AM FOREMAN/PILE DRIVING AND ERECTION If an Anesthesia block was performed please [...] acetaminophen (TYLENOL) tablet Given 09/24/2021 7:55 AM FOREMAN/PILE DRIVING AND ERECTION 1,00 0 mg 1,000 mg 1,000 mg, [...] (SUBLIMAZE) injection 25-50 mcg 25-50 mcg, Intravenous, [id number], Other, 25 mcg for Mi ld to [...] lactated ringers infusion Started 09/24/2021 1:28 PM FOREMAN/PILE DRIVING AND ERECTION 25 mL/hr, Intravenous, CONTINUOUS, Starting on Susanna 09/24/21 at 0800, Administer on all preop surgery patients, ages 12 and older, unless specified differently in the Protocol for Preop Initiation of IV fluids Order Set., Pre-op Restarted 09/24/2021 11:41 AM FOREMAN/PILE DRIVING AND ERECTION Started 09/24/2021 7:56 AM FOREMAN/PILE DRIVING AND ERECTION 25 mL/hr 25 mL/hr meperidine (DEMEROL) injection 12.5 mg 12.5 mg, Intravenous, [id number], Shiverin g, Starting on Susanna 09/24/21 at 0814, Until Susanna 09/24/21 at 1629, For 2 doses, Maxim um cumulative dose is 25 mg. Do not give to patients receiving MAO inhibitors (e.g. phenelzine (NA RDIL), tranylcypromine (PARNATE), selegiline (ELDEPRYL))., PACU/Recovery midazolam (VERSED) injection 1-2 mg Given 09/24/2021 8:56 AM FOREMAN/PILE DRIVING AND ERECTION 2 mg 1-2 mg, Intravenous, [id number], Sedation, Anxiety, Procedure, Starting on Susanna 09/24/21 [...] Recently Administered Medications Times are shown in FOREMAN/PILE DRIVING AND ERECTION. Scheduled Medication Order 09/22/2021 09/23/2021 09/24/2021 acetaminophen [...] (SUBLIMAZE) injection 25-50 mcg 25-50 mcg, Intravenous, [id number], Other, 25 mcg for Mild to Moderate [...] longer acting agent is desired., Starting on [facility] 09/24/21 at 0814, Until Susanna [...] (DEMEROL) injection 12.5 mg 12.5 mg, Intravenous, [id number], Shiverin g, Starting on Susanna 09/24/21 at 0814, Until [facility] 09/24/21 at 1629, For 2 doses, Maximum cumulative dose is 25 mg. Do not give to patients receiving MAO inhibitors ( e.g. phenelzine (NARDIL), tranylcypromin e (PARNATE), selegiline (ELDEPRYL))., PACU/Recovery midazolam (VERSED) injection 1-2 mg 0856 (Given - Provider: Emmy Holguin RN) 1-2 mg, Intravenous, [id number], Sedation, Anxiety, Procedure, Starting on Susanna 09/24/21 [...] PACU/Recovery documented in this encounter Care Teams Lens Marker Relationship Specialty Start Date End Date Pcp, Sarkis Ash MD PCP - General 05/05/21 [place] [address] documented as of this encounter
--- OUTSIDE RECORDS SUMMARY | 2022-08-16 11:16 | XMS_ITS | Encounter Summary ---
:1970 Author Organization [employer] Address [address], [place] [address] Care Team Providers Name Role Phone Pcp, Pt Declines MD Primary Care Provider Reason for Referral Procedure/Equipment (Routine) - Incomplete Specialty Diagnoses / Procedures Referred By Contact Refer red To Contact Diagnoses Post-traumatic osteoarthritis of left ankle Steve Workman MD Procedures FL Injection Ankle Lt [address] [place], [place] [address] Referral ID Status Reason Start Date Expiration Date Visits V isits Requested Authorized [id number] Incomplete 07/03/2021 10/02/2022 1 1 Encounter Details Date Type Department Care Team Description 07/03/2021 Notes/Orders Specialty Center Steve Workman Post-t raumatic [address] BEULAH Galaviz MD osteoarthritis of left Orthopedics [address] [facility] ankle (Primary Dx) [address] [place] [id number] Social History Tobacco Use Types Packs/Day Years [...] of 0 out of 10. Procedure Note Reubne Vásquez MD - 07/16/2021Forma tting of this [...] 0 out of 10. Steve Workman MD [facility] documented in this encounter Visit Diagnoses Diagnosis Post-traumatic osteoarthritis of left an kle - Primary Post-traumatic osteoarthritis of left an kle documented in this encounter Care Teams Sawmill Supervisor Relationship Specialty Start Date End Date PcpSarkis MD PCP - General 05/05/21 [place] [address] documented as of this encounter
[2022-08-16 13:56] LABS: Vitamin D 25 Hydroxy* 25 ng/mL (30-80)
[2022-08-16 14:01] LABS: Potassium* 4.5 mmol/L (3.6-5.1)
[2022-08-16 14:21] LABS: SARS PCR* Negative SARS-CoV-2 (Negative)
== END 2022-08-16 11:14 | disposition home or self-care (01) ==
PROVIDERS: PCP Family Medicine; Visit Provider Nurse Practitioner Family
DX: Z01.818 Encounter for other preprocedural examination (principal); Z86.39 Personal history of other endocrine, nutritional and metabolic disease; Z20.822 Contact with and (suspected) exposure to COVID-19
CPT/HCPCS: 36415; 82306; 84132; 87635

== ENCOUNTER 2022-08-17 08:12 | Day surgery (SDC) | payer BC, SELFPAY ==
[2022-08-17] VITALS (13 sets, daily range): BP systolic 105–125; BP diastolic 62–77; PULSE 56–102; RESP 12–16; TEMP 36.1–36.4; O2SAT 94–97; BMI 35.9
[2022-08-17] MEDS: SODIUM CHLORIDE 0.9 % (FLUSH) 10 ML SYRINGE IVF (08:35)
[2022-08-17] MEDS: LACTATED RINGERS 1000 ML 1,000 ML 100 ML IV (08:35)
[2022-08-17] MEDS: CEFAZOLIN 2 GM INJ IVP (09:47)
[2022-08-17] MEDS: BUPIVACAINE 0.25% 30 ML INJECTION (10:24)
--- NOTE | 2022-08-17 10:27 | P.GSOP_ITS ---
Operative Note Date of procedure: 08/17/22 Type of Procedure: Open umbilical hernia repair Procedure Description: After discussing the risks and benefits of the procedure, the patient signed informed consent.? The operative site was marked and the patient was brought to the operating room and placed on the operating table in supine position.? Care was taken to pad the patient's pressure points.?? The patient was then intubated by anesthesia.?? The operative site was then prepped and draped in the usual sterile fashion.? A time-out was then performed. A curvilinear incision was made at the umbilicus. Dissection was carried down into the subcutaneous tissue using cautery. The hernia sac was encountered and care was taken to not enter it. Dissection was taken down to the fascia, and the umbilical stock was carefully dissected off of the hernia sac. A moderate amount of preperitoneal fat was incarcerated through the small fascial opening. This was unable to be easily reduced. The hernia sac and a portion of preperitoneal fat was transected, allowing the remaining that to easily reduce.. The fascial edges were then cleared circumferentially. The hernia was 1 cm in size and so the decision was made for primary closure. And 0 Nurolon suture was used to create a [id number] repair of the fascial defect. Local anesthetic was injected into the fascia, skin and subcutaneous tissues. The umbilicus was reapproximated to the fascia. The skin was then closed with running absorbable suture. A sterile dressing was then applied. ? Sterile dressings were then applied. ? The patient was then woken and transported to the recovery area in stable cond ition. ? The patient tolerated the procedure well. Findings: Small umbilical hernia with incarcerated preperitoneal fat. Repaired primarily. Anesthesia: GETA Surgeon: Emily Ortiz MD Estimated blood loss (mL): 1 Condition: stable Disposition: same day
[2022-08-17] MEDS: OXYCODONE 5 MG TABLET PO (11:35)
--- NOTE | 2022-08-17 13:24 | W.ANESCHARGE ---
Anesthesia Charges Start Date/Time Anesthesia Start Date: 08/17/22 Anesthesia Start Time: 10:40 Stop Date/Time Anesthesia Stop Date: 08/17/22 Anesthesia Stop Time: 11:40
--- NOTE | 2022-08-17 13:26 | W.ANESCHARGE ---
Anesthesia Charges Start Date/Time Anesthesia Start Date: 08/17/22 Anesthesia Start Time: 10:40 Stop Date/Time Anesthesia Stop Date: 08/17/22 Anesthesia Stop Time: 11:40 Summary Emergency: No
== END 2022-08-17 12:45 | disposition home or self-care (01) ==
PROVIDERS: PCP Family Medicine; Visit Provider Surgery
PROC: (CPT 49587; principal; 2022-08-17 09:15)
DX: K42.0 Umbilical hernia with obstruction, without gangrene (principal)
CPT/HCPCS: 49587; 00800; A9270; J0330; J0690; J1100; J2250; J2405; J2704; J3010; J3490; J7120

== ENCOUNTER 2024-02-23 11:44 | Outpatient (CLI) | payer BC, SELFPAY ==
--- OUTSIDE RECORDS SUMMARY | 2024-02-23 11:49 | XMS_ITS | Clinical Summary ---
Author Name Unknown Organization [employer] [facility] Address [place], [place] [address] Care Team Providers Care Genetic Counsellor Name Role Phone Pcp, No Primary Care Provider Unavailabl e Allergies Active Allergy Reactions Criticality Noted Date Comments Adhesive Rash 09/14/2010 Medications Medication Sig Dispensed Refills Start Date End Date Status SUMAtriptan (IMITREX) 100 mg tabletIndications:Migr griffin without aura and without status migrainosus, not intractable Take 1 tablet by mouth every 2 hours if needed for Migraine. Maximum is 200 mg daily. 9 tablet 5 07/25/2015 Active codeine-guaiFENesin (CHERATUSSIN AC) 10-100 mg/5 mL liquidIndications:Coug h Take 5 mL by mouth every 4 hours if needed for Cough. Causes drowsiness.Max dose 60 mL per 24 hrs. 180 mL 10/29/2016 Active Active Problems Problem Noted Date Diagnosed Date Cystocele, midline 08/25/2009 Other joint derangement, not elsewhere classified, lower leg 11/30/2007 Migraine, unspecified, witho ut mention of intractable migraine without mention of status migrainosus 09/20/2006 Temporomandibular joint disorders, unspecified 1 11/20/2005 Tension headache 09/20/2006 Immunizations Name Administration Dates Next Due Tdap 02/07/2010,03/09/2006 Family History Medical History Relation Name Comments Good Health Father Heart Disease Mother Thyroid Disease Mother Relation Name Status Comments Brother 1 Alive Brother 2 Alive Brother 3 Alive Brother 4 Alive Father Alive Mother Alive Sister Alive Social History Tobacco Use Types Packs/Day Years Used Date Smoking Tobacco: Never Smokeless Tobacco: Never Alcohol Use Standard Drinks/Week Comments Yes 1.7 (1 standard drink = 0.6 oz p ure alcohol) Rare Sex and Gender Information Value Date Recorded Sex Assigned at Not on file Gender Identity Not on file Sexual Orientation Not on file Obstetrics History Para Term AB IAB SAB Ectopic Multiple Livin g Live Births 4 4 Date Outcome GA Total Labor Labor/2nd/3rd Weight Sex Delivery Anes PTL Sia A1 A5 Name Cl in Last Filed Vital Signs Vital Sign Reading Time Taken Comments Blood Pressure 110/64 10/29/2016 2:19 PM MANAGER REVIEW Pulse 72 10/29/2016 2:19 PM MANAGER REVIEW Temperature 36.5 ??C (97.7 ??F) 10/29/2016 2:19 PM CS T Respiratory Rate 16 07/25/2015 9:58 AM CDT Oxygen Saturation 99% 12/17/2012 6:30 PM MANAGER REVIEW Inhaled Oxygen Concentration - - Weight 94.8 kg (209 lb) 10/29/2016 2:19 PM MANAGER REVIEW Height 170.2 cm (5' 7) 08/11/2016 10:29 AM CDT Body Mass Index 32.73 08/11/2016 10:29 AM CDT Plan of Treatment Health Maintenance Due Date Last Done Comments HIV for age 15-65 1986 Hepatitis C screening for age 18-79 1989 Pap test for age 21-65 11/22/2011 9, 03/09/2006, 02/12/2005, Additional history exists Colonoscopy through age 75 2016 Lipids for age 45-75 2016 11/22/2008 Mammogram for age 45-75 2016 BMI (ht and wt on same day) for age 18+ 08/11/2017 08/11/2016 Depression screening for age 12+ 08/11/2017 08/11/2016 Tetanus booster 02/08/2020 02/07/2010, 03/09/2006 Zoster (shingles) series for age 50+ (1 of 2) 2021 COVID-19 vaccine series (2022- season) 2023 07/02/2021, 06/10/2021 Influenza for age 50-64 07/08/2024 Tdap Completed 02/07/2010, 03/09/2006 Pneumococcal series for age 6-64 Aged Out No longer eligible based on patient's age to complete this topic Procedures Procedure Name Priority Date/Time Associated Diagnosis Comments RECOVERY AUDITOR THIN PREP PAP SCREEN IMAGED Routine 11/22/2008 2:55 PM MANAGER REVIEW Screening for Malignant Neoplasm of the Cervix LIPID PANEL Routine 11/22/2008 10:07 AM MANAGER REVIEW Routine General Medical Examination at a [facility] from Last 3 Months or Most Recently Relevant to Health Maintenance Results * RECOVERY AUDITOR THIN PREP PAP SCREEN IMAGED (11/22/2008 2:55 PM MANAGER REVIEW) CYTOLOGY ??CYTOPATHOLOGY REPORT ??[facility] ?? Status: Final Report ? [id number] ?? CLINICAL INFORMATION ?Date of Last LMP ?: 11.03.08 ?Last Pap Date ? : 03.09.2006 ?Last Pap Result ? : NIL ?ABN Trevett/Bx Past 5 YRS: None ?Hormone Usage ? : None ?Menstrual Status ?: Regular Periods ?Trevett/Bx done today ?: No ?Additional Data ? : None given ?? HPV Request ?: HPV if ASCUS ?? SPECIMEN SOURCE ?: Cervical/vaginal ThinPrep Vial, screening ?? SPECIMEN ADEQUACY ?: Satisfactory for evaluation Endocervical ?component present. ? INTERPRETATION/RES ULT: ?Negative for intraepithelial lesion or malignancy (NIL) ? EDUCATIONAL NOTES AND SUGGESTIONS: ?? For technical reasons this ThinPrep Pap could not be reviewed by the ?? Blanket Inspector and was screened manually. ?? Cytology 1st Screener : ??nm ?? Signed by: ? nm ?? This specimen was screened by the FDA approved ThinPrep Imaging ?? System and manually reviewed. ?? NOTE: The Pap test is a screening technique, not a diagnostic ?? procedure. It is used primarily to screen for squamous cancers and ?? precursor lesions. Published studies have shown that it is subject to ?? both false negative and false positive results. The pap test should ?? not be used as the sole means to diagnose or exclude pre-malignant and ?? malignant lesions. ?? COLLECTED: 11/22/08 ?? ACCESSIONED: 11/22/08 ?? SIGNED: 11/29/08 [facility] P[facility] [place] CODE NIL [facility] Cervical (Cervical) 11/22/2008 2:55 PM MANAGER REVIEW 11/22/2008 2:54 PM MANAGER REVIEW Teresa Krueger Maria Ines PATHOLOGY/CYTOLOGY [facility] INTERNAL ZIP [address] [place] [address] * (ABNORMAL) LIPID PANEL (11/22/2008 10:07 AM MANAGER REVIEW) CHOLESTEROL,TOTAL 157 110 - 199 mg/dL [facility] TRIGLYCERIDES 75 <150 mg/dL [facility] HDL CHOLESTEROL 38(L) >40 mg/dL COUNT INCLUDES THE [facility] CHOL/HDL RATIO 4.13 <4.51 [facility] LDL CHOLESTEROL 104 <131 mg/dL [facility] PATIENT STATUS Fasting [facility] Blood specimen (specimen) BLOOD SPECIMEN / Unknown 11/22/2008 10:07 AM MANAGER REVIEW 11/22/2008 9:49 AM MANAGER REVIEW Teresa Woodrufflayaloni CHEMISTRY [facility] [address] [place] [phone] from Last 3 Months or Most Recently Relevant to Health Maintenance Advance Directives * Full Code (Latest Code Status on File) Date Activated Date Inactivated Comments 06/20/2006 8:27 AM 06/22/2006 6:08 AM Care Teams Genetic Counsellor Relationship Specialty Start Date End Date Pcp, No . PCP - General 12/18/15
--- OUTSIDE RECORDS SUMMARY | 2024-02-23 11:49 | XMS_ITS | Clinical Summary ---
Author Name Unknown Organization [facility] Address [address] [place] [address] Care Team Providers Care Vending Service Technician Name Role Phone Pcp, Pt Declines MD Primary Care Provider [phone] Source Comments You are receiving this document as you are listed as the primary care provider,follow-up provider, or the patient has been referred to you for consultation.This is in compliance with the Medicare andOhio[facility] Hospitalcaid EHR Incentive Program,which states Providers who transition their patient to another setting of careor provider of care or refers their patient to another provider of care shouldprovide summary care record for each transition of care or referral. [facility] All[facility] Active Allergy Reactions Criticality Noted Date Comments Chlorhexidine Rash 10/05/2021 From ankle surgery on 09/24 Wound Dressing Adhesive Rash 05/05/2021 Surgical tape Medications Medication Sig Dispensed Refills Start Date End Date Status SUMAtriptan (IMITREX) 100 MG tablet TAKE 1 TABLET BY MOUTH AFTER ONSET OF MIGRAINE, MAY REPEAT AFTER 2 HOURS IF HEADACHE RETURNS. (MAX 2 TABLETS IN 24 HRS) TAKE NEEDED 04/24/2021 Active fluticasone propionate (FLONASE) 50 MCG/ACT nasal solution Place 2 Sprays into both nostrils daily. Active cetirizine (ZYRTEC) 10 MG tablet Take 10 mg by mouth daily. Active oxyCODONE-acetaminop hen (PERCOCET) 5-325 MG tablet Take 1-2 Tablets by mouth every 4 hours as needed for Pain. Maximum acetaminophen dose is 4000 mg in 24 hours. 30 Tablet 09/24/2021 Active ondansetron (ZOFRAN-ODT) 4 MG disintegrating tablet Take 1 Tablet by mouth every 8 hours as needed for Nausea. 30 Tablet 09/24/2021 Active senna (SENNA LAXATIVE) 8.6 MG tablet Take 1 Tablet by mouth daily. 100 Tablet 09/24/2021 Active traMADol (ULTRAM) 50 MG tabletIndications:Ar thritis of left ankle Take 1 Tablet by mouth every 6 hours as needed. 30 Tablet 11/09/2021 Active Resolved Problems Problem Noted Date Diagnosed Date Resolved Date Osteoarthritis of left ankle and foot 09/15/2021 09/24/2021 Overview: Added automatically from request for surgery [id number] Immunizations Name Administration Dates Next Due Pfizer Monovalent 12+ Purple Top 07/02/2021,02/2021 Social History Tobacco Use Types Packs/Day Years Used Date Smoking Tobacco: Never Smokeless Tobacco: Never Sex and Gender Information Value Date Recorded Sex Assigned at Not on file Gender Identity Not on file Sexual Orientation Not on file Last Filed Vital Signs Vital Sign Reading Time Taken Comments Blood Pressure 108/70 09/24/2021 2:30 PM WINDOWS DESKTOP ENGINEER Pulse 71 09/24/2021 2:30 PM WINDOWS DESKTOP ENGINEER Temperature 36.6 ??C (97.9 ??F) 09/24/2021 2:02 PM CS T Respiratory Rate 16 09/24/2021 2:30 PM WINDOWS DESKTOP ENGINEER Oxygen Saturation 98% 09/24/2021 2:30 PM WINDOWS DESKTOP ENGINEER Inhaled Oxygen Concentration - - Weight 103 kg (227 lb) 09/24/2021 7:45 AM WINDOWS DESKTOP ENGINEER Height 170.2 cm (5' 7) 09/24/2021 7:45 AM WINDOWS DESKTOP ENGINEER Body Mass Index 35.55 09/24/2021 7:45 AM WINDOWS DESKTOP ENGINEER Plan of Treatment Health Maintenance Due Date Last Done Comments Cervical Cancer Screening Due 1971 Colon Cancer Screening Plan Due 1971 Hep C Screening (Preventive Services) 1970 Mammogram 1971 HIV Screening (Preventive Services) 1987 Adult Preventive Visit 1989 HepB (1) 1990 Cholesterol 2016 Zoster/Shingles (1 of 2) 2021 COVID-19 Vaccine (2022-2 4 season) 2023 07/02/2021, 06/10/2021 Influenza (#1) 2023 11/28/2020, 08/23/2008, 08/28/2004 DTaP/Tdap/Td (4 - Tdap) 11/28/2030 11/28/19 21, 02/07/2010, 03/09/2006 HepA Aged Out 07/31/2013, 02/27/2013, 01/23/2013 No longer eligible based on patient's age to complete this topic Hib Aged Out No longer eligi ble based on patient's age to complete this topic IPV (Polio) Aged Out No longer eligi ble based on patient's age to complete this topic MCV4 Aged Out No longer eligi ble based on patient's age to complete this topic Pneumococcal Aged Out No longer eligi ble based on patient's age to complete this topic Advance Directives * Full Code (Latest Code Status on File) Date Activated Date Inactivated Comments 09/24/2021 1:43 PM 09/24/2021 4:49 PM Care Teams Vending Service Technician Relationship Specialty Start Date End Date Pcp, [place] [address] PCP - General 05/05/21
== END 2024-02-23 11:45 | disposition home or self-care (01) ==
PROVIDERS: PCP Family Medicine; Visit Provider Family Medicine
DX: R53.83 Other fatigue (principal); E55.9 Vitamin D deficiency, unspecified
CPT/HCPCS: 80048; 82306; 84443

== ENCOUNTER 2024-03-27 19:30 | Outpatient (CLI) | payer BC, SELFPAY ==
--- OUTSIDE RECORDS SUMMARY | 2024-03-27 19:33 | XMS_ITS | Clinical Summary ---
Author Name Unknown Organization [email or web address] Address [place], [place] [address] Care Team Providers Care Animal Nursery Worker Name Role Phone Pcp, No Primary Care [...] Comments Blood Pressure 110/64 10/29/2016 2:19 PM POLE SANDER OPERATOR Pulse 72 10/29/2016 2:19 PM POLE SANDER OPERATOR Temperature 36.5 ??C (97.7 ??F) 10/29/2016 2:19 PM CS T Respiratory Rate 16 07/25/2015 9:58 AM CDT Oxygen Saturation 99% 12/17/2012 6:30 PM POLE SANDER OPERATOR Inhaled Oxygen Concentration - - Weight 94.8 kg (209 lb) 10/29/2016 2:19 PM POLE SANDER OPERATOR Height 170.2 cm (5' 7) 08/11/2016 [...] Procedure Name Priority Date/Time Associated Diagnosis Comments FONDANT MACHINE OPERATOR THIN PREP PAP SCREEN IMAGED Routine 11/22/2008 2:55 PM POLE SANDER OPERATOR Screening for Malignant Neoplasm of the Cervix LIPID PANEL Routine 11/22/2008 10:07 AM POLE SANDER OPERATOR Routine General Medical Examination at a [facility] from Last 3 Months or Most Recently Relevant to Health Maintenance Results * FONDANT MACHINE OPERATOR THIN PREP PAP SCREEN IMAGED (11/22/2008 2:55 PM POLE SANDER OPERATOR) CYTOLOGY ??CYTOPATHOLOGY REPORT ??[employer] ?? Status: Final Report ? [id number] ?? CLINICAL INFORMATION ?Date of Last LMP ?: 11.03.08 ?Last Pap Date ? : 03.09.2006 ?Last Pap Result ? : NIL ?ABN [place]/Bx Past 5 YRS: None ?Hormone Usage ? : None ?Menstrual Status ?: Regular Periods ?[place]/Bx done today ?: No ?Additional Data ? [...] could not be reviewed by the ?? Anesthesiologist Assistant Certified and was screened manually. ?? Cytology 1st [...] 11/22/08 ?? ACCESSIONED: 11/22/08 ?? SIGNED: 11/29/08 [facility] PAP [place] CODE NIL [facility] Cervical (Cervical) 11/22/2008 2:55 PM POLE SANDER OPERATOR 11/22/2008 2:54 PM POLE SANDER OPERATOR Teresa Krueger Maria Ines PATHOLOGY/CYTOLOGY [facility] INTERNAL ZIP [address] [place] [id number] * (ABNORMAL) LIPID PANEL (11/22/2008 10:07 AM POLE SANDER OPERATOR) CHOLESTEROL,TOTAL 157 110 - 199 mg/dL [facility] TRIGLYCERIDES 75 <150 mg/dL [facility] HDL CHOLESTEROL 38(L) >40 mg/dL [facility] CHOL/HDL RATIO 4.13 <4.51 [facility] LDL CHOLESTEROL 104 <131 mg/dL [facility] PATIENT STATUS Fasting [facility] Blood specimen (specimen) BLOOD SPECIMEN / Unknown 11/22/2008 10:07 AM POLE SANDER OPERATOR 11/22/2008 9:49 AM POLE SANDER OPERATOR eTresa Woodrufflayaloni CHEMISTRY [facility] [address] [place] [phone] from Last 3 Months or Most Recently Relevant to Health Maintenance Advance Directives * Full Code (Latest Code Status on File) Date Activated Date Inactivated Comments 06/20/2006 8:27 AM 06/22/2006 6:08 AM Care Teams Animal Nursery Worker Relationship Specialty Start Date End Date Pcp, No . PCP - General 12/18/15
--- OUTSIDE RECORDS SUMMARY | 2024-03-27 19:33 | XMS_ITS | Encounter Summary ---
Author Name Unknown Organization [facility] Address [address], [place] [address] Care Team Providers Care Forest Fire Warden Name Role Phone PcpSarkis MD Primary Care Provider [phone] Encounter Details Date Type Department Care Team (Late st Contact Info) Description 03/01/2024 E-Visit [facility] [address] [place] [address] Mychart, [place] [address] Social History Tobacco Use Types Packs/Day Years Used Date Smoking Tobacco: Never Smokeless Tobacco: Never Sex and Gender Information Value Date Recorded Sex Assigned at Not on file Gender Identity Not on file Sexual Orientation Not on file documented as of this encounter Plan of Treatment Not on file documented as of this encounter Visit Diagnoses Not on filedocumented in this encounter Care Teams Forest Fire Warden Relationship Specialty Start Date End Date Sarkis Romero MD [place], [place] [id number] PCP - General 05/05/21 documented as of this encounter
--- OUTSIDE RECORDS SUMMARY | 2024-03-27 19:33 | XMS_ITS | Clinical Summary ---
Author Name Unknown Organization [facility] Address [address] [place] [address] Care Team Providers Care High Lift Operator Name Role Phone Pcp, Pt Declines MD Primary Care Provider [phone] Source Comments You are receiving this document as you are listed as the primary care provider,follow-up provider, or the patient has been referred to you for consultation.This is in compliance with the Medicare and[facility] EHR Incentive Program,which states Providers who transition their patient to another setting of careor provider of care or refers their patient to another provider of care shouldprovide summary care record for each transition of care or referral. [facility] All[facility] Active Allergy Reactions Criticality Noted Date [...] Overview: Added automatically from request for surgery [id number] Encounters Date Type Department Care Team Description 03/01/2024 E-Visit [facility] [address] [place] [address] Mychart, Generic Provider from Last 3 Months Immunizations Name Administration Dates Next Due Pfizer Monovalent 12+ Purple Top 07/02/2021,080 02/2021 Social History Tobacco Use Types Packs/Day Years Used Date Smoking Tobacco: Never Smokeless Tobacco: Never Sex and Gender Information Value Date Recorded Sex Assigned at Not on file Gender Identity Not on file Sexual Orientation Not on file Last Filed Vital Signs Vital Sign Reading Time Taken Comments Blood Pressure 108/70 09/24/2021 2:30 PM ONE PIECE EXPANSION MAKER HAND Pulse 71 09/24/2021 2:30 PM ONE PIECE EXPANSION MAKER HAND Temperature 36.6 ??C (97.9 ??F) 09/24/2021 2:02 PM CS T Respiratory Rate 16 09/24/2021 2:30 PM ONE PIECE EXPANSION MAKER HAND Oxygen Saturation 98% 09/24/2021 2:30 PM ONE PIECE EXPANSION MAKER HAND Inhaled Oxygen Concentration - - Weight 103 kg (227 lb) 09/24/2021 7:45 AM ONE PIECE EXPANSION MAKER HAND Height 170.2 cm (5' 7) 09/24/2021 7:45 AM ONE PIECE EXPANSION MAKER HAND Body Mass Index 35.55 09/24/2021 7:45 AM ONE PIECE EXPANSION MAKER HAND Plan of Treatment Health Maintenance Due Date Last Done Comments Cervical Cancer Screening Due 1971 Colon Cancer Screening Plan Due 1971 Hep C Screening (Preventive Services) 1971 Mammogram 1971 HIV Screening (Preventive Services) 1987 Adult Preventive Visit 1989 HepB (1) 1990 Cholesterol 2016 Zoster/Shingles (1 of 2) 2021 COVID-19 Vaccine (3 - 2022-2 4 season) 2023 07/02/2021, 06/10/2021 Influenza (Season Ended) 2024 021, 08/23/2008, 08/28/2004 DTaP/Tdap/Td (4 - Tdap) 11/28/2030 [...] 1:43 PM 09/24/2021 4:49 PM Care Teams High Lift Operator Relationship Specialty Start Date End Date Pcp, [place] [address] PCP - General 05/05/21
--- NOTE | 2024-04-17 11:43 | W.PM.SLEEP ---
Sleep Study Details Details Interpreting Provider: Sixto Date of Sleep Study: 03/27/24 Sleep Study Details: STUDY TYPE:? Home unattended ? BMI:? Not recorded ORDERING PROVIDER:? Suzie INDICATION:? Concerns about sleep apnea ? SLEEP SUMMARY:? 428 minutes monitor RESPIRATORY SUMMARY:? AHI 22.7 Low oxygen 77 28.5% of study oxygen less than 90% Snoring 73.6% PERIODIC LIMB MOVEMENTS OF SLEEP:? Not recorded CARDIAC:? Range 77-115, mean 86.8 beats per minute IMPRESSION:? Moderate obstructive sleep apnea RECOMMENDATION: Treatment options include weight loss, CPAP AutoSet 4-17, dental appliance and/or airway expansion surgery.
== END 2024-03-27 19:31 | disposition home or self-care (01) ==
LOC: SLEEP 19:31
PROVIDERS: PCP Family Medicine; Visit Provider Otolaryngology
DX: G47.33 Obstructive sleep apnea (adult) (pediatric) (principal)
CPT/HCPCS: 95806

== ENCOUNTER 2025-02-13 12:46 | Outpatient (CLI) | payer BC, SELFPAY ==
--- NOTE | 2025-02-13 13:00 | CRLHL7_ITS ---
For Patients: As a result of the Century Cures Act, medical imaging exams and procedure reports are released immediately into your electronic medical record. You may view this report before your referring provider. If you have questions, please contact your health care provider. INDICATION: BILATERAL SCREENING MAMMOGRAM, ASYMPTOMATIC 54 Y/O FEMALE COMPARISON: 03/30/23 TECHNIQUE: CC and MLO views were obtained. These mammographic images have been obtained using full-field digital technique. These mammographic images were interpreted with the benefit of computer aided detection and tomosynthesis. BREAST COMPOSITION: The breasts are almost entirely fatty. FINDINGS: No suspicious findings. ASSESSMENT: BI-RADS 2 Benign RECOMMENDATION: Annual screening mammogram. A lay language report of this examination will be provided to the patient. Dictated by: Girma Camarena MD @ 02/14/2025 11:31:07 (Electronically Signed)
== END 2025-02-13 12:47 | disposition home or self-care (01) ==
LOC: MAMMO 12:47
PROVIDERS: PCP Family Medicine; Visit Provider Family Medicine
DX: Z12.31 Encounter for screening mammogram for malignant neoplasm of breast (principal)
CPT/HCPCS: 77063; 77067

== ENCOUNTER 2025-03-14 10:09 | Outpatient (CLI) | payer BC, SELFPAY | END 2025-03-14 10:10 | disposition home or self-care (01) | PROVIDERS: PCP Family Medicine; Visit Provider Family Medicine | DX: R10.9 Unspecified abdominal pain (principal); R53.83 Other fatigue; R82.90 Unspecified abnormal findings in urine; Z13.6 Encounter for screening for cardiovascular disorders | CPT/HCPCS: 80048; 80061; 80076; 84443; 85025; 87086 ==